=== PATIENT | female | born 1930 | race Caucasian/White ===

== ENCOUNTER 2017-08-19 08:23 | Inpatient (IN) | payer MEDICARE, OTHER ==
[2017-08-19] MEDS ORDERED: IPRATROPIUM-ALBUTEROL 3 ML NEB INHALATION STA (08:43)
[2017-08-19] MEDS ORDERED: FUROSEMIDE 10 MG/ML 4 ML VIAL IV STA (08:43)
--- NOTE | 2017-08-19 08:46 | ED ---
General Adult HPI - General Chief complaint: Shortness of Breath Stated complaint: Sob Time Seen by Provider: 08/19/17 08:40 Source: patient, RN notes reviewed Mode of arrival: wheelchair Limitations: no limitations - History of Present Illness Initial comments: Patient is a pleasant 87-year-old female presenting to the emergency Department with complaints of dyspnea. Symptoms started around 2 in the morning and progressively worsened since that time. Patient does have cough. Patient has had some yellow sputum. No fever. Patient does have a history of similar symptoms previously associated with both COPD and CHF. Patient does admit to having some leg swelling and states this occurs frequently. Dyspnea does increase with lying flat. - Related Data Home Medications Medication Instructions Recorded Confirmed Acetaminophen Tab [Tylenol] 500 - 1,000 mg PO Q4H PRN 01/26/17 01/26/17 Albuterol Nebulized [Ventolin 2.5 mg INHALATION RT-TID 01/26/17 01/26/17 Nebulized] Allopurinol [Zyloprim] 100 mg PO DAILY 01/26/17 01/26/17 Aspirin 81 mg PO DAILY 01/26/17 01/26/17 Budesonide/Formoterol Fumarate 2 puff INHALATION RT-BID 01/26/17 01/26/17 [Symbicort 160-4.5 Mcg Inhaler] Bumetanide [BUMEX] 4 mg PO DAILY 01/26/17 01/26/17 Calcitriol [Rocaltrol] 0.25 mcg PO DAILY 01/26/17 01/26/17 Cinnamon Bark [Cinnamon] 500 mg PO DAILY 01/26/17 01/26/17 Fish Oil/Dha/Epa [Fish Oil 1,200 1 cap PO DAILY 01/26/17 01/26/17 mg Fish Oil] Fluticasone Nasal [place] [Flonase 1 - 2 spray EA NOSTRIL DAILY PRN 01/26/1701/26 Nasal [place]] Isosorbide Mononitrate ER [Imdur] 60 mg PO DAILY 01/26/17 01/26/17 Metolazone [Zaroxolyn] 2.5 mg PO DAILY 01/26/17 01/26/17 Nitroglycerin Sl Tabs [Nitrostat] 0.4 mg SUBLINGUAL Q5M PRN 01/26/17 01/26/17 Omeprazole [PriLOSEC] 20 mg PO DAILY 01/26/17 01/26/17 Ondansetron [Zofran] 4 mg PO Q8HR PRN 01/26/17 01/26/17 Simvastatin [Zocor] 20 mg PO HS 01/26/17 01/26/17 hydrALAZINE HCL [Apresoline] 25 mg PO TID 01/26/17 01/26/17 rOPINIRole HCL [Requip] 1 mg PO BID 01/26/17 01/26/17 Previous Rx's Medication Instructions Recorded Metoprolol Succinate (ER) [Toprol 100 mg PO DAILY #30 tab.er.24h 01/27/17 XL] Allergies Allergy/AdvReac Type Severity Reaction Status Date / Time levofloxacin [From Levaquin] Allergy Unknown Verified 08/19/17 08:38 codeine AdvReac Unknown Verified 08/19/17 08:38 fentanyl AdvReac Unknown Verified 08/19/17 08:38 hydrocodone AdvReac Unknown Verified 08/19/17 08:38 hydromorphone [From Dilaudid] AdvReac Unknown Verified 08/19/17 08:38 morphine AdvReac Unknown Verified 08/19/17 08:38 propoxyphene [From Darvon] AdvReac Unknown Verified 08/19/17 08:38 tramadol AdvReac Unknown Verified 08/19/17 08:38 Review of Systems ROS Statement: Those systems with pertinent positive or pertinent negative responses have been documented in the HPI. ROS Other: All systems not noted in ROS Statement are negative. Constitutional: Denies: fever Eyes: Denies: eye pain ENT: Denies: ear pain Respiratory: Reports: cough, dyspnea Cardiovascular: Denies: chest pain Endocrine: Reports: fatigue Gastrointestinal: Denies: abdominal pain Genitourinary: Denies: dysuria Musculoskeletal: Denies: back pain Skin: Denies: rash Neurological: Denies: headache Past Medical History Past Medical History: Coronary Artery Disease (CAD), Heart Failure, COPD, Diabetes Mellitus, GERD/Reflux, Hyperlipidemia, Hypertension, Renal Disease Additional Past Medical History / Comment(s): RLS, "borderline diabetes", CKD stage IV, anemia, hypocalcemia in past, "leaky heart valve",SSS with pacer, gout R foot, cataract R eye, chronic low back pain. History of Any Multi-Drug Resistant Organisms: None Reported Past Surgical History: Back Surgery, Cholecystectomy, Coronary Bypass/CABG, Heart Catheterization, Hysterectomy, Joint Replacement, Orthopedic Surgery Additional Past Surgical History / Comment(s): 5 vessel Cabg 2002, 02/2009 Pacemaker, R total shoulder, back discectomy, R knee arthroscopy, EGD/ colonoscopy, L cataract removal. Past Anesthesia/Blood Transfusion Reactions: No Reported Reaction Additional Past Anesthesia/Blood Transfusion Reaction / Comment(s): Pt has clausterphobia. Past Psychological History: Depression Smoking Status: Never smoker Past Alcohol Use History: Occasional Past Drug Use History: None Reported - Past Family History Father Family Medical History: COPD, Diabetes Mellitus Additional Family Medical History / Comment(s): Father developed diabetes and heart disease later in life. He lived to be 97yrs old. Mother Family Medical History: COPD, Diabetes Mellitus Additional Family Medical History / Comment(s): Mother had heart disease. She lived to be 70yrs old. General Exam Limitations: no limitations General appearance: alert Head exam: Present: atraumatic Eye exam: Present: normal appearance ENT exam: Present: normal oropharynx Neck exam: Present: normal inspection Respiratory exam: Present: wheezes, rales Cardiovascular Exam: Present: regular rate, normal rhythm GI/Abdominal exam: Present: soft. Absent: tenderness Extremities exam: Present: pedal edema. Absent: calf tenderness Back exam: Present: normal inspection Neurological exam: Present: alert Psychiatric exam: Present: normal affect, normal mood Skin exam: Present: normal color Course Vital Signs 08/19/17 08/19/17 08/19/17 08:33 08:35 09:07 Temperature 98.4 F Pulse Rate 78 60 Respiratory 20 26 H Rate Blood Pressure 170/85 O2 Sat by Pulse 98 Oximetry 08/19/17 08/19/17 08/19/17 09:16 09:37 10:23 Temperature Pulse Rate 60 60 62 Respiratory 18 16 Rate Blood Pressure 138/56 140/88 O2 Sat by Pulse 100 99 Oximetry EKG Findings - EKG Comments: EKG Findings:: Paced rhythm and rate of 60. QRS 194. QT 534. QTC 534. Left axis. Wide-complex QRS. Nonspecific ST-T. Medical Decision Making - Medical Decision Making Patient reevaluated and is somewhat improved. Patient and family are updated on results and plan. Case was crusted detail with Dr. Kaplan, who will admit for Dr. Vargas. - Lab Data Result diagrams: 08/19/17 08:38 08/19/17 08:38 Lab Results 08/19/17 08/19/1718 Range/Units 08:38 08:38 08:38 WBC 5.7 (3.8-10.6) k/uL RBC 4.29 (3.80-5.40) m/uL Hgb 12.6 (11.4-16.0) gm/dL Hct 38.5 (34.0-46.0) % MCV 89.6 (80.0-100.0) fL MCH 29.3 (25.0-35.0) pg MCHC 32.7 (31.0-37.0) g/dL RDW 15.1 (11.5-15.5) % Plt Count 117 L (150-450) k/uL Neutrophils % 64 % Lymphocytes % 22 % Monocytes % 8 % Eosinophils % 2 % Basophils % 1 % Neutrophils # 3.7 (1.3-7.7) k/uL Lymphocytes # 1.3 (1.0-4.8) k/uL Monocytes # 0.4 (0-1.0) k/uL Eosinophils # 0.1 (0-0.7) k/uL Basophils # 0.0 (0-0.2) k/uL PT (9.0-12.0) sec INR (<1.2) APTT (22.0-30.0) sec Sodium 137 (137-145) mmol/L Potassium 3.9 (3.5-5.1) mmol/L Chloride 94 L (98-107) mmol/L Carbon Dioxide 29 (22-30) mmol/L Anion Gap 14 mmol/L BUN 44 H (7-17) mg/dL Creatinine 1.52 H (0.52-1.04) mg/dL Est GFR (CKD-EPI)AfAm 35 (>60 ml/min/1.73 sqM) Est GFR (CKD-EPI)NonAf 31 (>60 ml/min/1.73 sqM) Glucose 170 H (74-99) mg/dL Calcium 9.0 (8.4-10.2) mg/dL Total Bilirubin 0.6 (0.2-1.3) mg/dL AST 58 H (14-36) U/L ALT 25 (9-52) U/L Alkaline Phosphatase 108 (38-126) U/L Total Creatine Kinase 52 (30-135) U/L CK-MB (CK-2) 0.9 (0.0-2.4) ng/mL CK-MB (CK-2) Rel Index 1.7 Troponin I 0.031 (0.000-0.034) ng/mL NT-Pro-B Natriuret Pep pg/mL Total Protein 5.8 L (6.3-8.2) g/dL Albumin 3.8 (3.5-5.0) g/dL 08/19/17 08/19/17 Range/Units 08:38 08:38 WBC (3.8-10.6) k/uL RBC (3.80-5.40) m/uL Hgb (11.4-16.0) gm/dL Hct (34.0-46.0) % MCV (80.0-100.0) fL MCH (25.0-35.0) pg MCHC (31.0-37.0) g/dL RDW (11.5-15.5) % Plt Count (150-450) k/uL Neutrophils % % Lymphocytes % % Monocytes % % Eosinophils % % Basophils % % Neutrophils # (1.3-7.7) k/uL Lymphocytes # (1.0-4.8) k/uL Monocytes # (0-1.0) k/uL Eosinophils # (0-0.7) k/uL Basophils # (0-0.2) k/uL PT 10.5 (9.0-12.0) sec INR 1.1 (<1.2) APTT 22.5 (22.0-30.0) sec Sodium (137-145) mmol/L Potassium (3.5-5.1) mmol/L Chloride (98-107) mmol/L Carbon Dioxide (22-30) mmol/L Anion Gap mmol/L BUN (7-17) mg/dL Creatinine (0.52-1.04) mg/dL Est GFR (CKD-EPI)AfAm (>60 ml/min/1.73 sqM) Est GFR (CKD-EPI)NonAf (>60 ml/min/1.73 sqM) Glucose (74-99) mg/dL Calcium (8.4-10.2) mg/dL Total Bilirubin (0.2-1.3) mg/dL AST (14-36) U/L ALT (9-52) U/L Alkaline Phosphatase (38-126) U/L Total Creatine Kinase (30-135) U/L CK-MB (CK-2) (0.0-2.4) ng/mL CK-MB (CK-2) Rel Index Troponin I (0.000-0.034) ng/mL NT-Pro-B Natriuret Pep 7970 pg/mL Total Protein (6.3-8.2) g/dL Albumin (3.5-5.0) g/dL - Radiology Data Radiology results: image reviewed (Chest x-ray does show cardiomegaly. Increased pulmonary vasculature with cephalization, correlate for pulmonary vascular congestion.) Disposition Clinical Impression: Congestive heart failure Disposition: ADMITTED IP TO THIS HOSP Is patient prescribed a controlled substance at d/c from ED?: No Referrals: Otilio Vargas MD [Primary Care Provider] - 1-2 days Decision Time: 10:45
[2017-08-19 09:12] LABS: Basophils % (A) 1 %; Eosinophils # (A) 0.1 k/uL (0-0.7); Eosinophils % (A) 2 %; HCT 38.5 % (34.0-46.0); HGB 12.6 gm/dL (11.4-16.0); Lymphocytes # (A) 1.3 k/uL (1.0-4.8); Lymphocytes % (A) 22 %; MCH 29.3 pg (25.0-35.0); MCHC 32.7 g/dL (31.0-37.0); MCV 89.6 fL (80.0-100.0); Mean Platelet Volume 7.8; Monocytes # (A) 0.4 k/uL (0-1.0); Monocytes % (A) 8 %; Neutrophils # (A) 3.7 k/uL (1.3-7.7); Neutrophils % (A) 64 %; Platelet Count 117 k/uL (150-450); RBC 4.29 m/uL (3.80-5.40); RDW 15.1 % (11.5-15.5); WBC 5.7 k/uL (3.8-10.6)
--- NOTE | 2017-08-19 09:16 | XR ---
EXAMINATION TYPE: XR chest 2V DATE OF EXAM: 08/19/2017 COMPARISON: None HISTORY: 87-year-old female difficulty breathing, shortness of breath and cough TECHNIQUE: AP and lateral views FINDINGS: Heart is mildly enlarged. Median sternotomy wires and post-CABG clips. The pulmonary vasculature appe ars cephalized. Left anterior chest wall pacemaker generator with right atrial and right ventricular leads. Reverse right shoulder arthroplasty partially visualized. No alex consolidation or pleural ef fusion. IMPRESSION: Mild cardiomegaly. The pulmonary vasculature appears cephalized. Correlate for mild pulmonary vascula r congestion. There is no focal infiltrate or pulmonary edema.
[2017-08-19 09:22] LABS: INR 1.1 (<1.2); Partial Thromboplastin Time 22.5 sec (22.0-30.0); Prothrombin Time 10.5 sec (9.0-12.0)
[2017-08-19 09:24] LABS: Albumin 3.8 g/dL (3.5-5.0); Potassium 3.9 mmol/L (3.5-5.1); Total Bilirubin 0.6 mg/dL (0.2-1.3); Total Protein 5.8 g/dL (6.3-8.2)
[2017-08-19 09:56] LABS: Creatine Kinase MB 0.9 ng/mL (0.0-2.4); Troponin I 0.031 ng/mL (0.000-0.034)
[2017-08-19] MEDS ORDERED: ASPIRIN 325 MG TAB PO STA (10:46)
[2017-08-19] MEDS ORDERED: NITROGLYCERIN SL TABS 0.4 MG TAB SUBLINGUAL PRN (11:03)
[2017-08-19] MEDS ORDERED: ACETAMINOPHEN TAB 500 MG TAB PO PRN (11:03)
[2017-08-19] MEDS ORDERED: FLUTICASONE 50MCG/SPRAY NASAL 16GM EA NOSTRIL PRN (11:03)
--- NOTE | 2017-08-19 12:12 | P.HPIM ---
History of Present Illness This is an 87-year-old female one of Dr. Cade patient's, she has a past medical history of chronic kidney disease stage IV, COPD, oxygen dependent on 2 L, hypertension, restless leg syndrome, history of coronary artery disease, and prior coronary artery bypass 5, pacemaker, diabetes, hypertension and dyslipidemia. Patient reports she's had a cough for about a week and a half now , has been bringing up thick yellow sputum. She's been having progressively worsening shortness of breath, that worsened yesterday. Patient reports she has significant shortness of breath with exertion, and also has been having slight lower extremity swelling, positive for orthopnea as well. Labs were drawn, her creatinine is 1.5, this seems to be her baseline. Chest x-ray reveals mild cardiomegaly, mild pulmonary vascular congestion, no focal infiltrates or pulmonary edema. Upon arrival to the emergency department, patient was slightly tachyphenic. She was given a dose of IV Lasix 40 mg, patient reports improvement in shortness of breath, tachypnea also improved. Rocephin 1 g IV started for bronchitis, she'll be started on DuoNeb's, and supplemental oxygen. Patient recently had echocardiogram in January, it revealed an EF of 35-40%, moderate concentric left ventricular hypertrophy, LV wall motion is hypokinetic, LA severely dilated, mild aortic regurgitation, moderate aortic stenosis, moderate mitral regurgitation, severe tricuspid regurgitation. Will consult cardiology, for her acute on chronic congestive heart failure and aortic stenosis. Review of Systems Constitutional: Reports chills, Reports fever Ears: deny: decreased hearing, ear discharge, tinnitus Ears, nose, mouth and throat: Reports post-nasal drip, Denies dysphagia, Denies epistaxis, Denies headache, Denies sinus pressure Cardiovascular: Reports decreased exercise tolerance, Reports dyspnea on exertion, Reports edema, Reports leg edema, Reports orthopnea, Reports shortness of breath, Denies chest pain, Denies irregular heart beat, Denies palpitations, Denies syncope Respiratory: Reports cough, Reports cough with sputum, Reports dyspnea, Reports home oxygen, Reports wheezing, Denies hemoptysis, Denies pleurisy, Denies respiratory infections, Denies sleep apnea Gastrointestinal: Denies abdominal pain, Denies bloating, Denies change in bowel habits, Denies coffee ground emesis, Denies constipation, Denies diarrhea , Denies heartburn, Denies nausea, Denies vomiting Genitourinary: Denies difficulty voiding, Denies dysuria, Denies flank pain, Denies hematuria, Denies nocturia, Denies urgency, Denies urinary frequency Musculoskeletal: Denies arm numbness/tingling, Denies frequent falls, Denies gait dysfunction, Denies muscle weakness, Denies myalgias, Denies neck pain Integumentary: Denies dryness, Denies lesions, Denies pruritus, Denies rash, Denies wounds Neurological: Denies ataxia, Denies balance difficulties, Denies confusion, Denies headaches, Denies numbness, Denies paralysis, Denies seizures, Denies syncope, Denies tingling Psychiatric: Denies anxiety, Denies confusion, Denies depression, Denies irritability, Denies mood swings Endocrine: Reports fatigue, Denies excessive thirst, Denies flushing, Denies heat intolerance, Denies nocturia, Denies weight change Hematologic/Lymphatic: Denies easy bleeding, Denies lymphadenopathy, Denies lymphedema Past Medical History Past Medical History: Coronary Artery Disease (CAD), Heart Failure, COPD, Diabetes Mellitus, GERD/Reflux, Hyperlipidemia, Hypertension, Renal Disease Additional Past Medical History / Comment(s): RLS, "borderline diabetes", CKD stage IV, anemia, hypocalcemia in past, "leaky heart valve",SSS with pacer, gout R foot, cataract R eye, chronic low back pain. aortic stenosis History of Any Multi-Drug Resistant Organisms: None Reported Past Surgical History: Back Surgery, Cholecystectomy, Coronary Bypass/CABG, Heart Catheterization, Hysterectomy, Joint Replacement, Orthopedic Surgery Additional Past Surgical History / Comment(s): 5 vessel Cabg 2002, 02/2009 Pacemaker, R total shoulder, back discectomy, R knee arthroscopy, EGD/ colonoscopy, L cataract removal. Past Anesthesia/Blood Transfusion Reactions: No Reported Reaction Additional Past Anesthesia/Blood Transfusion Reaction / Comment(s): Pt has clausterphobia. Past Psychological History: Depression Smoking Status: Never smoker Past Alcohol Use History: Occasional Past Drug Use History: None Reported - Past Family History Father Family Medical History: COPD, Diabetes Mellitus Additional Family Medical History / Comment(s): Father developed diabetes and heart disease later in life. He lived to be 97yrs old. Mother Family Medical History: COPD, Diabetes Mellitus Additional Family Medical History / Comment(s): Mother had heart disease. She lived to be 70yrs old. Medications and Allergies Home Medications Medication Instructions Recorded Confirmed Type Acetaminophen Tab [Tylenol] 500 - 1,000 mg PO Q4H PRN 01/26/17 08/19/17 History Albuterol Nebulized [Ventolin 2.5 mg INHALATION RT-TID 01/26/17 08/19/17 History Nebulized] Budesonide/Formoterol Fumarate 2 puff INHALATION RT-BID 01/26/17 08/19/17 History [Symbicort 160-4.5 Mcg Inhaler] Bumetanide [BUMEX] 3 mg PO DAILY 01/26/17 08/19/17 History Calcitriol [Rocaltrol] 0.25 mcg PO DAILY 01/26/17 08/19/17 History Cinnamon Bark [Cinnamon] 500 mg PO DAILY 01/26/17 08/19/17 History Fish Oil/Dha/Epa [Fish Oil 1,200 1 cap PO DAILY 01/26/17 08/19/17 History mg Fish Oil] Fluticasone Nasal [place] [Flonase 1 - 2 spray EA NOSTRIL DAILY PRN 01/26/1708/19 History Nasal [place]] Isosorbide Mononitrate ER [Imdur] 60 mg PO DAILY 01/26/17 08/19/17 History Metolazone [Zaroxolyn] 2.5 mg PO DAILY 01/26/17 08/19/17 History Nitroglycerin Sl Tabs [Nitrostat] 0.4 mg SUBLINGUAL Q5M PRN 01/26/17 08/19/17 History Omeprazole [PriLOSEC] 20 mg PO DAILY 01/26/17 08/19/17 History Simvastatin [Zocor] 20 mg PO HS 01/26/17 08/19/17 History hydrALAZINE HCL [Apresoline] 25 mg PO TID 01/26/17 08/19/17 History rOPINIRole HCL [Requip] 1 mg PO BID 01/26/17 08/19/17 History Metoprolol Succinate (ER) [Toprol 100 mg PO DAILY #30 tab.er.24h 01/27/17 Rx XL] Potassium Chloride Oral Liquid 40 meq PO DAILY 08/19/17 08/19/17 History Allergies Allergy/AdvReac Type Severity Reaction Status Date / Time levofloxacin [From Levaquin] Allergy Unknown Verified 08/19/17 10:48 codeine AdvReac Unknown Verified 08/19/17 10:48 fentanyl AdvReac Unknown Verified 08/19/17 10:48 hydrocodone AdvReac Unknown Verified 08/19/17 10:48 hydromorphone [From Dilaudid] AdvReac Unknown Verified 08/19/17 10:48 morphine AdvReac Unknown Verified 08/19/17 10:48 propoxyphene [From [place]] AdvReac Unknown Verified 08/19/17 10:48 tramadol AdvReac Unknown Verified 08/19/17 10:48 Physical Exam Vitals: Vital Signs Temp Pulse Resp BP Pulse Ox 08/19/17 10:23 62 16 140/88 99 08/19/17 09:37 60 18 138/56 100 08/19/17 09:16 60 08/19/17 09:07 60 08/19/17 08:35 98.4 F 78 26 H 170/85 98 08/19/17 08:33 20 Intake and Output 08/18/17 08/19/17 08/19/17 22:59 06:59 14:59 Other: Weight 73.936 kg - Constitutional General appearance: cooperative, mild distress, obese - EENT Eyes: PERRLA, normal appearance ENT: hearing grossly normal, normal oropharynx - Neck Neck: no lymphadenopathy, normal ROM, no thyromegaly Thyroid: bilateral: normal size, negative: enlarged, firm, nodule - Respiratory Respiratory: bilateral: diminished, rhonchi, negative: dullness, rales, wheezing - Cardiovascular Rhythm: regular Heart sounds: normal: S1, S2 Abnormal Heart Sounds: systolic murmur - Gastrointestinal General gastrointestinal: no decreased bowel sounds, no distended, no hepatomegaly, normal bowel sounds, no organomegaly, soft - Integumentary Integumentary: no cellulitis, no cyanotic, normal turgor, no rash - Neurologic Neurologic: CNII-XII intact - Musculoskeletal Musculoskeletal: generalized weakness, strength equal bilaterally Results CBC & Chem 7: 08/19/17 08:38 08/19/17 08:38 Labs: Abnormal Lab Results - Last 24 Hours (Table) 08/19/17 08/19/17 Range/Units 08:38 08:38 Plt Count 117 L (150-450) k/uL Chloride 94 L (98-107) mmol/L BUN 44 H (7-17) mg/dL Creatinine 1.52 H (0.52-1.04) mg/dL Glucose 170 H (74-99) mg/dL AST 58 H (14-36) U/L Total Protein 5.8 L (6.3-8.2) g/dL Assessment and Plan Plan: 1. Acute respiratory failure secondary to acute on chronic systolic congestive heart failure and aortic stenosis. Will start patient on Lasix 40 mg IV push every 12 hours, continue her on her Imdur 60 mg, hydralazine 25mg 3 times a day , Zaroxolyn 2.5 mg daily and metoprolol 100 mg daily. Cardiology consulted, 2. Symptomatic aortic stenosis. Cardiology on consult, will resume meds as discussed in #1 3. Acute bronchitis. Continue with supplemental oxygen, DuoNeb's, ceftriaxone 1000 mg every 24 hours, continue Symbicort 2 puffs twice a day 4. Chronic kidney disease stage IV. Creatinine from January 2017 was 1.5, this seems to be baseline, will continue to monitor BUN and creatinine 5. Coronary artery disease status post coronary artery bypass graft in 2002, continue metoprolol, aspirin, atorvastatin, and Imdur 6. Ischemic cardiomyopathy with an ejection fraction of 35-40% with pacemaker, continue metolazone, hydralazine, Imdur metoprolol, aspirin, and atorvastatin, cardiology on consult. 7. Restless leg syndrome. Continue Requip 1 mg twice a day as needed 8. COPD on 2 L, oxygen dependent, patient's saturation is 99% will continue with 2 L O2, updraft treatments, and Symbicort. 9. Thrombocytopenia. We'll continue to monitor CBC 10. DVT prophylaxis. levenox 30mg daily 11. GI prophylaxis. Pepcid The above impression and plan of care have been discussed and directed by signing physician. Neelam Gayle nurse practitioner acting as scribe for signing physician.
[2017-08-19] MEDS: ALBUTEROL NEBULIZED 2.5 MG/3 ML INHALATION SCH ×2 (13:45→20:48)
[2017-08-19] MEDS: cefTRIAXone IN SWFI 1,000 MG/10 ML SYRINGE IVP SCH (14:30)
[2017-08-19] MEDS: NITROGLYCERIN OINT 1 INCH/GM PACKET TOPICAL SCH ×3 (14:31→21:37)
[2017-08-19] MEDS: hydrALAZINE HCL 25 MG TAB PO SCH ×2 (15:38→21:34)
[2017-08-19 19:33] LABS: Calcium 8.8 mg/dL (8.4-10.2); Magnesium 1.9 mg/dL (1.6-2.3); Potassium 3.9 mmol/L (3.5-5.1)
[2017-08-19] MEDS: SYMBICORT 160-4.5 MCG INHALER INHALATION SCH (20:48)
[2017-08-19] MEDS: ATORVASTATIN 10 MG TAB PO SCH (21:34)
[2017-08-19] MEDS: FUROSEMIDE 10 MG/ML 4 ML VIAL IV SCH (21:37)
[2017-08-20 05:12] VITALS: RESP 18
[2017-08-20] MEDS: PANTOPRAZOLE 40 MG TABLET PO SCH (06:26)
[2017-08-20] MEDS: NITROGLYCERIN OINT 1 INCH/GM PACKET TOPICAL SCH ×4 (08:16→20:39)
[2017-08-20] MEDS: FAMOTIDINE 20 MG TAB PO SCH (08:18)
[2017-08-20] MEDS: METOPROLOL SUCCINATE (ER) 100 MG TAB.ER.24H PO SCH (08:18)
[2017-08-20] MEDS: hydrALAZINE HCL 25 MG TAB PO SCH ×3 (08:18→20:41)
[2017-08-20] MEDS: ISOSORBIDE MONONITRATE ER 30 MG TAB.ER.24H PO SCH (08:18)
[2017-08-20] MEDS: CALCITRIOL 0.25 MCG CAP PO SCH (08:19)
[2017-08-20] MEDS: FUROSEMIDE 10 MG/ML 4 ML VIAL IV SCH ×2 (08:19→20:41)
[2017-08-20] MEDS: METOLAZONE 2.5 MG TAB PO SCH (08:19)
[2017-08-20] MEDS: ASPIRIN 325 MG TAB PO SCH (08:19)
[2017-08-20] MEDS: ENOXAPARIN 30 MG/0.3 ML SYRINGE SQ SCH (08:19)
[2017-08-20] MEDS: POTASSIUM BICARBONATE/CIT AC 20 MEQ TABLET.EFF PO SCH (08:20)
[2017-08-20] MEDS: ALBUTEROL NEBULIZED 2.5 MG/3 ML INHALATION SCH ×3 (08:27→20:33)
[2017-08-20] MEDS: SYMBICORT 160-4.5 MCG INHALER INHALATION SCH ×2 (08:36→20:31)
[2017-08-20] MEDS ORDERED: NON-FORMULARY DRUG (Fish Oil/Dha/Epa [Fish Oil 1,200 Mg Fish Oil] 1 CAP) PO SCH (09:00)
[2017-08-20] MEDS ORDERED: NON-FORMULARY DRUG (Cinnamon Bark [Cinnamon] 500 MG) PO SCH (09:00)
--- NOTE | 2017-08-20 09:57 | P.PN ---
Subjective Progress Note Date: 08/20/17 This is an 87-year-old female one of Dr. Cade patient's, she has a past medical history of chronic kidney disease stage IV, COPD, oxygen dependent on 2 L, hypertension, restless leg syndrome, history of coronary artery disease, and prior coronary artery bypass 5, pacemaker, diabetes, hypertension and dyslipidemia. Patient reports she's had a cough for about a week and a half now , has been bringing up thick yellow sputum. She's been having progressively worsening shortness of breath, that worsened yesterday. Patient reports she has significant shortness of breath with exertion, and also has been having slight lower extremity swelling, positive for orthopnea as well. Labs were drawn, her creatinine is 1.5, this seems to be her baseline. Chest x-ray reveals mild cardiomegaly, mild pulmonary vascular congestion, no focal infiltrates or pulmonary edema. Upon arrival to the emergency department, patient was slightly tachyphenic. She was given a dose of IV Lasix 40 mg, patient reports improvement in shortness of breath, tachypnea also improved. Rocephin 1 g IV started for bronchitis, she'll be started on DuoNeb's, and supplemental oxygen. Patient recently had echocardiogram in January, it revealed an EF of 35-40%, moderate concentric left ventricular hypertrophy, LV wall motion is hypokinetic, LA severely dilated, mild aortic regurgitation, moderate aortic stenosis, moderate mitral regurgitation, severe tricuspid regurgitation. Will consult cardiology, for her acute on chronic congestive heart failure and aortic stenosis. 08/20: Patient is doing much better today she denies any chest pain she is less short of breath she continues to have some swelling in both lower extremities usability using a walker she has no coughing or hemoptysis she has no fever or chills we will continue to monitor the patient for another 1 or 2 days she will be seen in consultation by cardiology as well. Objective - Vital Signs Vital signs: Vital Signs Temp 96.6 F L 08/20/17 08:00 Pulse 72 08/20/17 08:42 Resp 18 08/20/17 08:00 BP 149/70 08/20/17 08:00 Pulse Ox 95 08/20/17 08:00 Intake & Output 08/19/17 08/20/17 08/20/17 18:59 06:59 18:59 Intake Total 240 Output Total 400 Balance -160 Weight 73.936 kg 73.5 kg Intake: Oral 240 Output: Urine 400 Other: Voiding Method Toilet Toilet # Voids 3 - Exam Constitutional General appearance: cooperative, mild distress, obese - EENT Eyes: PERRLA, normal appearance ENT: hearing grossly normal, normal oropharynx - Neck Neck: no lymphadenopathy, normal ROM, no thyromegaly Thyroid: bilateral: normal size, negative: enlarged, firm, nodule - Respiratory Respiratory: bilateral: diminished, rhonchi, negative: dullness, rales, wheezing - Cardiovascular Rhythm: regular Heart sounds: normal: S1, S2 Abnormal Heart Sounds: systolic murmur - Gastrointestinal General gastrointestinal: no decreased bowel sounds, no distended, no hepatomegaly, normal bowel sounds, no organomegaly, soft - Integumentary Integumentary: no cellulitis, no cyanotic, normal turgor, no rash - Neurologic Neurologic: CNII-XII intact - Musculoskeletal Musculoskeletal: generalized weakness, strength equal bilaterally - Labs CBC & Chem 7: 08/19/17 08:38 08/19/17 18:52 Labs: Abnormal Lab Results - Last 24 Hours (Table) 08/19/17 Range/Units 18:52 Chloride 94 L (98-107) mmol/L Carbon Dioxide 32 H (22-30) mmol/L BUN 44 H (7-17) mg/dL Creatinine 1.70 H (0.52-1.04) mg/dL Glucose 117 H (74-99) mg/dL Assessment and Plan Assessment: 1. Acute respiratory failure secondary to acute on chronic systolic congestive heart failure and aortic stenosis. Will start patient on Lasix 40 mg IV push every 12 hours, continue her on her Imdur 60 mg, hydralazine 25mg 3 times a day , Zaroxolyn 2.5 mg daily and metoprolol 100 mg daily. Cardiology consulted, 2. Symptomatic aortic stenosis. Cardiology on consult, will resume meds as discussed in #1 3. Acute bronchitis. Continue with supplemental oxygen, DuoNeb's, ceftriaxone 1000 mg every 24 hours, continue Symbicort 2 puffs twice a day 4. Chronic kidney disease stage IV. Creatinine from January 2017 was 1.5, this seems to be baseline, will continue to monitor BUN and creatinine 5. Coronary artery disease status post coronary artery bypass graft in 2002, continue metoprolol, aspirin, atorvastatin, and Imdur 6. Ischemic cardiomyopathy with an ejection fraction of 35-40% with pacemaker, continue metolazone, hydralazine, Imdur metoprolol, aspirin, and atorvastatin, cardiology on consult. 7. Restless leg syndrome. Continue Requip 1 mg twice a day as needed 8. COPD on 2 L, oxygen dependent, patient's saturation is 99% will continue with 2 L O2, updraft treatments, and Symbicort. 9. Thrombocytopenia. We'll continue to monitor CBC 10. DVT prophylaxis. levenox 30mg daily 11. GI prophylaxis. Pepcid
--- NOTE | 2017-08-20 11:08 | CONS ---
CONSULTATION CHIEF COMPLAINT: Shortness of breath. Citlalli is an 87-year-old lady with history of coronary artery disease, status post CABG, history of permanent pacemaker, chronic congestive heart failure and COPD, who presented to hospital complaining of sudden onset shortness of breath. She has moderate intensity shortness of breath, came on at rest without clear-cut relieving or exacerbating factors. She also has chronic lower extremity edema that has worsened somewhat of late. Patient is on Bumex at home along with nitrates, hydralazine, beta blockers. She denies chest pain and on this admission she has had a troponin that is within normal limits. Her BNP [place] elevated [place] 7970. EKG shows paced rhythm. PAST MEDICAL HISTORY: Significant for coronary artery disease, status post CABG, hypertension, dyslipidemia, chronic congestive heart failure, sick sinus syndrome. MEDICATIONS: At home include Tylenol, Zocor, Flonase, Ventolin, Bumex, Requip, Apresoline, Toprol- XL, Prilosec, metolazone, Imdur, calcitriol and Symbicort. Multiple drug allergies including CODEINE, FENTANYL, DILAUDID, MORPHINE, TRAMADOL. FAMILY HISTORY: Negative for premature coronary artery disease. SOCIAL HISTORY: Negative for smoking, EtOH abuse, or drug abuse. REVIEW OF SYSTEMS: HEENT is unremarkable. CARDIAC: As described above. RESPIRATORY: Significant for shortness of breath. GI: Negative. GENITOURINARY: Negative. ALLERGY/IMMUNOLOGY: Negative. SKIN: Negative. MUSCULOSKELETAL: Significant for arthritis. PSYCHOSOCIAL: Negative. ENDOCRINE: Negative. DERMATOLOGY: Negative. CONSTITUTIONAL: Negative. ONCOLOGICAL: Negative. Rest of the system review is not relevant. PHYSICAL EXAM: She is comfortable at rest. Vital signs are stable. There is no jugular venous distention. Carotid upstroke is normal. There is no bruit. Chest exam reveals diminished air entry at the bases. Heart exam reveals first and second heart sounds. Systolic murmur at the apex. Abdomen is soft. Exam of extremities reveals 1+ edema. Peripheral pulses are palpable. An echocardiogram on her in the past showed ischemic cardiomyopathy with an ejection fraction of 35%. She has moderate aortic stenosis, severe tricuspid regurgitation and moderate mitral regurgitation and pulmonary hypertension. ASSESSMENT: 1. Acute exacerbation of chronic systolic heart failure. 2. Coronary artery disease, status post coronary artery bypass grafting. 3. Chronic renal insufficiency. 4. Mitral regurgitation. 5. Aortic stenosis. PLAN: Will treat the patient with IV Lasix, beta blockers, nitrates, hydralazine, and adjust therapies as needed based on her response. MMODL / IJN: [id number] /
[2017-08-20] MEDS: cefTRIAXone IN SWFI 1,000 MG/10 ML SYRINGE IVP SCH (12:21)
[2017-08-20 15:38] VITALS: BMI 32.7
[2017-08-20] MEDS: ATORVASTATIN 10 MG TAB PO SCH (20:41)
[2017-08-21 06:19] LABS: Basophils % (A) 1 %; Eosinophils # (A) 0.2 k/uL (0-0.7); Eosinophils % (A) 4 %; HCT 38.5 % (34.0-46.0); HGB 12.9 gm/dL (11.4-16.0); Lymphocytes # (A) 1.7 k/uL (1.0-4.8); Lymphocytes % (A) 29 %; MCH 30.5 pg (25.0-35.0); MCHC 33.6 g/dL (31.0-37.0); MCV 90.8 fL (80.0-100.0); Mean Platelet Volume 7.8; Monocytes # (A) 0.4 k/uL (0-1.0); Monocytes % (A) 8 %; Neutrophils # (A) 3.2 k/uL (1.3-7.7); Neutrophils % (A) 56 %; Platelet Count 124 k/uL (150-450); RBC 4.25 m/uL (3.80-5.40); RDW 15.7 % (11.5-15.5); WBC 5.8 k/uL (3.8-10.6)
[2017-08-21 06:25] LABS: Albumin 3.8 g/dL (3.5-5.0); Calcium 9.4 mg/dL (8.4-10.2); Magnesium 1.9 mg/dL (1.6-2.3); Potassium 4.3 mmol/L (3.5-5.1); Total Bilirubin 0.5 mg/dL (0.2-1.3); Total Protein 5.9 g/dL (6.3-8.2)
[2017-08-21] MEDS: PANTOPRAZOLE 40 MG TABLET PO SCH (06:42)
[2017-08-21] MEDS: NITROGLYCERIN OINT 1 INCH/GM PACKET TOPICAL SCH ×2 (08:07→12:36)
[2017-08-21] MEDS: ISOSORBIDE MONONITRATE ER 30 MG TAB.ER.24H PO SCH (08:08)
[2017-08-21] MEDS: hydrALAZINE HCL 25 MG TAB PO SCH ×2 (08:09→15:24)
[2017-08-21] MEDS: METOPROLOL SUCCINATE (ER) 100 MG TAB.ER.24H PO SCH (08:09)
[2017-08-21] MEDS: CALCITRIOL 0.25 MCG CAP PO SCH (08:09)
[2017-08-21] MEDS: FAMOTIDINE 20 MG TAB PO SCH (08:09)
[2017-08-21] MEDS: METOLAZONE 2.5 MG TAB PO SCH (08:09)
[2017-08-21] MEDS: ASPIRIN 325 MG TAB PO SCH (08:09)
[2017-08-21] MEDS: FUROSEMIDE 10 MG/ML 4 ML VIAL IV SCH (08:09)
[2017-08-21] MEDS: ENOXAPARIN 30 MG/0.3 ML SYRINGE SQ SCH (08:09)
[2017-08-21] MEDS: SYMBICORT 160-4.5 MCG INHALER INHALATION SCH (08:36)
[2017-08-21] MEDS: ALBUTEROL NEBULIZED 2.5 MG/3 ML INHALATION SCH ×2 (08:36→13:06)
[2017-08-21] MEDS: POTASSIUM BICARBONATE/CIT AC 20 MEQ TABLET.EFF PO SCH (11:02)
[2017-08-21] MEDS: cefTRIAXone IN SWFI 1,000 MG/10 ML SYRINGE IVP SCH (11:02)
[2017-08-21 11:38] VITALS: BP 125/60; TEMP 96
--- NOTE | 2017-08-21 11:51 | P.DS ---
Providers Date of admission: 08/20/17 08:23 Attending physician: Jack Kaplan Consults: 08/19/17 10:46 Consult Physician Routine Consulting Provider: Lorenzo Arevalo Consult Reason/Comments: chf Do you want consulting provider notified?: Yes Primary care physician: [facility] Course: This is an 87-year-old female one of Dr. Cade patient's, she has a past medical history of chronic kidney disease stage IV, COPD, oxygen dependent on 2 L, hypertension, restless leg syndrome, history of coronary artery disease, and prior coronary artery bypass 5, pacemaker, diabetes, hypertension and dyslipidemia. Patient reports she's had a cough for about a week and a half now , has been bringing up thick yellow sputum. She's been having progressively worsening shortness of breath, that worsened yesterday. Patient reports she has significant shortness of breath with exertion, and also has been having slight lower extremity swelling, positive for orthopnea as well. Labs were drawn, her creatinine is 1.5, this seems to be her baseline. Chest x-ray reveals mild cardiomegaly, mild pulmonary vascular congestion, no focal infiltrates or pulmonary edema. Upon arrival to the emergency department, patient was slightly tachyphenic. She was given a dose of IV Lasix 40 mg, patient reports improvement in shortness of breath, tachypnea also improved. Rocephin 1 g IV started for bronchitis, she'll be started on DuoNeb's, and supplemental oxygen. Patient recently had echocardiogram in January, it revealed an EF of 35-40%, moderate concentric left ventricular hypertrophy, LV wall motion is hypokinetic, LA severely dilated, mild aortic regurgitation, moderate aortic stenosis, moderate mitral regurgitation, severe tricuspid regurgitation. Will consult cardiology, for her acute on chronic congestive heart failure and aortic stenosis. 08/20: Patient is doing much better today she denies any chest pain she is less short of breath she continues to have some swelling in both lower extremities usability using a walker she has no coughing or hemoptysis she has no fever or chills we will continue to monitor the patient for another 1 or 2 days she will be seen in consultation by cardiology as well. 08/21: Patient states she much better today, denies any worsening shortness of breath, cough, chest pain. Patient was consulted by cardiology recommends continuation with beta blockers, nitrates, and hydralazine. She'll continue on current medications, follow-up with cardiology. Discharge diagnoses 1. Acute respiratory failure secondary to acute on chronic systolic congestive heart failure and aortic stenosis. 2. Symptomatic aortic stenosis. 3. Acute bronchitis. 4. Chronic kidney disease stage IV. 5. Coronary artery disease status post coronary artery bypass graft in 2002 6. Ischemic cardiomyopathy with an ejection fraction of 35-40% with pacemaker 7. Restless leg syndrome. 8. COPD on 2 L, oxygen dependent 9. Thrombocytopenia. The above impression and plan of care have been discussed and directed by signing physician. Neelam Gayle nurse practitioner acting as scribe for signing physician. Patient Condition at Discharge: Good Plan - Discharge Summary Discharge Rx Participant: No New Discharge Prescriptions: New Cefuroxime [Ceftin] 250 mg PO BID #14 tablet Continue hydrALAZINE HCL [Apresoline] 25 mg PO TID Metolazone [Zaroxolyn] 2.5 mg PO DAILY Isosorbide Mononitrate ER [Imdur] 60 mg PO DAILY Fluticasone Nasal [place] [Flonase Nasal [place]] 1 - 2 spray EA NOSTRIL DAILY PRN PRN Reason: Allergy Symptoms Fish Oil/Dha/Epa [Fish Oil 1,200 mg Fish Oil] 1 cap PO DAILY Cinnamon Bark [Cinnamon] 500 mg PO DAILY Calcitriol [Rocaltrol] 0.25 mcg PO DAILY Bumetanide [BUMEX] 3 mg PO DAILY Budesonide/Formoterol Fumarate [Symbicort 160-4.5 Mcg Inhaler] 2 puff INHALATION RT-BID Albuterol Nebulized [Ventolin Nebulized] 2.5 mg INHALATION RT-TID Acetaminophen Tab [Tylenol] 500 - 1,000 mg PO Q4H PRN PRN Reason: Pain Omeprazole [PriLOSEC] 20 mg PO DAILY Nitroglycerin Sl Tabs [Nitrostat] 0.4 mg SUBLINGUAL Q5M PRN PRN Reason: Chest Pain rOPINIRole HCL [Requip] 1 mg PO BID Simvastatin [Zocor] 20 mg PO HS Metoprolol Succinate (ER) [Toprol XL] 100 mg PO DAILY #30 tab.er.24h Potassium Chloride Oral Liquid 40 meq PO DAILY Discharge Medication List Acetaminophen Tab [Tylenol] 500 - 1,000 mg PO Q4H PRN 01/26/17 [History] Albuterol Nebulized [Ventolin Nebulized] 2.5 mg INHALATION RT-TID 01/26/17 [ History] Budesonide/Formoterol Fumarate [Symbicort 160-4.5 Mcg Inhaler] 2 puff INHALATION RT-BID 01/26/17 [History] Bumetanide [BUMEX] 3 mg PO DAILY 01/26/17 [History] Calcitriol [Rocaltrol] 0.25 mcg PO DAILY 01/26/17 [History] Cinnamon Bark [Cinnamon] 500 mg PO DAILY 01/26/17 [History] Fish Oil/Dha/Epa [Fish Oil 1,200 mg Fish Oil] 1 cap PO DAILY 01/26/17 [History] Fluticasone Nasal [place] [Flonase Nasal [place]] 1 - 2 spray EA NOSTRIL DAILY PRN 01/26/17 [History] Isosorbide Mononitrate ER [Imdur] 60 mg PO DAILY 01/26/17 [History] Metolazone [Zaroxolyn] 2.5 mg PO DAILY 01/26/17 [History] Nitroglycerin Sl Tabs [Nitrostat] 0.4 mg SUBLINGUAL Q5M PRN 01/26/17 [History] Omeprazole [PriLOSEC] 20 mg PO DAILY 01/26/17 [History] Simvastatin [Zocor] 20 mg PO HS 01/26/17 [History] hydrALAZINE HCL [Apresoline] 25 mg PO TID 01/26/17 [History] rOPINIRole HCL [Requip] 1 mg PO BID 01/26/17 [History] Metoprolol Succinate (ER) [Toprol XL] 100 mg PO DAILY #30 tab.er.24h 01/27/17 [ Rx] Potassium Chloride Oral Liquid 40 meq PO DAILY 08/19/17 [History] Cefuroxime [Ceftin] 250 mg PO BID #14 tablet 08/21/17 [Rx] Follow up Appointment(s)/Referral(s): Demetrius Dueñas MD [STAFF PHYSICIAN] - 08/27/17 3:00 pm (Device clinic and to see Dr. Dueñas.) Otilio Vargas MD [Primary Care Provider] - 1-2 days Patient Instructions/Handouts: Heart Failure (DC), Chronic Kidney Disease (DC) , DASH Eating Plan (DC) Discharge Disposition: HOME SELF-CARE
[2017-08-21 13:11] VITALS: PULSE 68
--- NOTE | 2017-08-21 14:06 | P.PN ---
Subjective Progress Note Date: 08/21/17 This is an 87-year-old female with history of coronary artery disease and prior bypass surgery, history of prior pacemaker implantation, chronic congestive heart failure, COPD, who presented to the hospital with sudden onset of shortness of breath. Patient was initiated on IV Lasix, beta blockers, nitrates, hydralazine, she diuresed well through the night last night. She was seen and examined this morning, overall feeling significantly better. Her weight is down significantly today. Blood pressure 124/60 with a heart rate in the 60s, 96% on 2 L of oxygen. White blood cell count 5.8, hemoglobin 12.9, platelet count 124. Sodium 137, potassium 4.3, BUN 57, creatinine 1.8. Magnesium level I.7. IV Lasix has been discontinued today, patient has been put back on Bumex. Objective - Vital Signs Vital signs: Vital Signs Temp 96.0 F L 08/21/17 11:38 Pulse 68 08/21/17 13:23 Resp 18 08/21/17 11:38 BP 125/60 08/21/17 11:38 Pulse Ox 96 08/21/17 11:38 Intake & Output 08/20/17 08/21/17 08/21/17 18:59 06:59 18:59 Intake Total 600 Balance 600 Weight 73.5 kg 64 kg Intake: Oral 600 Other: Voiding Method Toilet # Voids 2 2 2 - Exam PHYSICAL EXAMINATION: GENERAL: 87-year-old female in no apparent distress at the time of my examination HEENT: Head is atraumatic, normocephalic. Pupils equal, round. Sclera anicteric. Conjunctiva are clear. Mucous membranes of the mouth are moist. Neck is supple. There is no elevated jugular venous pressure.] bruit is heard. HEART EXAMINATION: Heart S1 S2 systolic murmur is heard. CHEST EXAMINATION: Lungs are clear with mild diminished air entry to the bases. No chest wall tenderness is noted on palpation or with deep breathing. ABDOMEN: Soft, nontender. Bowel sounds are heard. No organomegaly noted. EXTREMITIES: 2+ peripheral pulses with no evidence of peripheral edema and no calf tenderness noted. NEUROLOGIC patient is awake, alert and oriented -3. . - Labs CBC & Chem 7: 08/21/17 05:40 08/21/17 05:40 Labs: Abnormal Lab Results - Last 24 Hours (Table) 08/21/17 08/21/17 Range/Units 05:40 05:40 RDW 15.7 H (11.5-15.5) % Plt Count 124 L (150-450) k/uL Chloride 92 L (98-107) mmol/L Carbon Dioxide 33 H (22-30) mmol/L BUN 57 H (7-17) mg/dL Creatinine 1.80 H (0.52-1.04) mg/dL AST 74 H (14-36) U/L Total Protein 5.9 L (6.3-8.2) g/dL Assessment and Plan Plan: Assessment and plan #1 systolic congestive heart failure acute on chronic #2 coronary artery disease with prior bypass surgery #3 chronic renal insufficiency #4 aortic stenosis and mitral regurgitation #4 COPD #5 history of prior pacemaker Plan Patient's IV Lasix has been discontinued, patient is currently on by mouth Bumex. From our perspective she may be able to be discharged home once cleared by primary, we'll make her a follow-up appointment in the office post discharge. DNP note has been reviewed, I agree with a documented findings and plan of care. Patient was seen and examined.
[2017-08-22] MEDS ORDERED: ASPIRIN 81 MG PO SCH (09:00)
[2017-08-22] MEDS ORDERED: BUMETANIDE 1 MG TAB PO SCH (09:00)
== END 2017-08-21 16:10 | disposition home or self-care (01) | DRG 291 ==
LOC: EC 08:23 → 3OBS 10:47 → 6SEL 15:05 → OBSVTOIN 08-20 08:23 → 6SEL 08-20 21:14
PROVIDERS: ADMIT Internal Medicine; ATTEND Internal Medicine
DX: I13.0 Hypertensive heart and chronic kidney disease with heart failure and stage 1 through stage 4 chronic kidney disease, or unspecified chronic kidney disease (principal); I50.23 Acute on chronic systolic (congestive) heart failure; J96.00 Acute respiratory failure, unspecified whether with hypoxia or hypercapnia; J44.0 Chronic obstructive pulmonary disease with (acute) lower respiratory infection; N18.4 Chronic kidney disease, stage 4 (severe); D69.6 Thrombocytopenia, unspecified; E11.22 Type 2 diabetes mellitus with diabetic chronic kidney disease; E78.5 Hyperlipidemia, unspecified; F32.9 Major depressive disorder, single episode, unspecified; G25.81 Restless legs syndrome; I08.3 Combined rheumatic disorders of mitral, aortic and tricuspid valves; I25.10 Atherosclerotic heart disease of native coronary artery without angina pectoris; I25.5 Ischemic cardiomyopathy; J20.9 Acute bronchitis, unspecified; K21.9 Gastro-esophageal reflux disease without esophagitis; Z79.51 Long term (current) use of inhaled steroids; Z79.82 Long term (current) use of aspirin; Z79.899 Other long term (current) drug therapy; Z82.49 Family history of ischemic heart disease and other diseases of the circulatory system; Z82.5 Family history of asthma and other chronic lower respiratory diseases; Z83.3 Family history of diabetes mellitus; Z90.710 Acquired absence of both cervix and uterus; Z95.0 Presence of cardiac pacemaker; Z95.1 Presence of aortocoronary bypass graft; Z98.42 Cataract extraction status, left eye; Z99.81 Dependence on supplemental oxygen; H26.9 Unspecified cataract; Z96.611 Presence of right artificial shoulder joint; M10.9 Gout, unspecified; Z88.5 Allergy status to narcotic agent; F40.240 Claustrophobia
CPT/HCPCS: 36415; 71046; 80048; 80053; 82550; 82553; 83735; 83880; 84484; 85025; 85610; 85730; 93005; 94640; 94760; 96374; 99285

== ENCOUNTER 2017-09-24 13:29 | Emergency (ER) | payer MEDICARE, OTHER ==
[2017-09-24 14:39] VITALS: RESP 18
--- NOTE | 2017-09-24 16:11 | ED ---
URI HPI - General Chief Complaint: Upper Respiratory Infection Stated Complaint: blood in flem Time Seen by Provider: 09/24/17 15:55 Source: patient Mode of arrival: wheelchair Limitations: no limitations - History of Present Illness Initial Comments: 87-year-old female patient presents to the emergency department today for evaluation of cough, shortness of breath, and padmini sputum production. Patient states that she has a chronic cough with history of asthma and COPD. Patient states that over the last 2-3 days she has been coughing up green blood tinged sputum. Patient denies any fevers or chills with this. Denies any significant weakness or dizziness. She denies any chest pain with this. Patient denies any recent rash, abdominal pain, nausea, vomiting, diarrhea, constipation, back pain , numbness, tingling, hematuria, dysuria, urinary urgency, urinary frequency, headache, visual changes, or any other complaints. - Related Data Home Medications Medication Instructions Recorded Confirmed Acetaminophen Tab [Tylenol] 500 - 1,000 mg PO Q4H PRN 01/26/17 09/24/17 Albuterol Nebulized [Ventolin 2.5 mg INHALATION RT-TID 01/26/17 09/24/17 Nebulized] Budesonide/Formoterol Fumarate 2 puff INHALATION RT-BID 01/26/17 09/24/17 [Symbicort 160-4.5 Mcg Inhaler] Bumetanide [BUMEX] 3 mg PO DAILY 01/26/17 09/24/17 Calcitriol [Rocaltrol] 0.25 mcg PO DAILY 01/26/17 09/24/17 Cinnamon Bark [Cinnamon] 500 mg PO DAILY 01/26/17 09/24/17 Fish Oil/Dha/Epa [Fish Oil 1,200 1 cap PO DAILY 01/26/17 09/24/17 mg Fish Oil] Fluticasone Nasal [place] [Flonase 1 - 2 spray EA NOSTRIL DAILY PRN 01/26/1709/24 Nasal [place]] Isosorbide Mononitrate ER [Imdur] 60 mg PO DAILY 01/26/17 09/24/17 Metolazone [Zaroxolyn] 2.5 mg PO DAILY 01/26/17 09/24/17 Nitroglycerin Sl Tabs [Nitrostat] 0.4 mg SUBLINGUAL Q5M PRN 01/26/17 09/24/17 Omeprazole [PriLOSEC] 20 mg PO DAILY 01/26/17 09/24/17 Simvastatin [Zocor] 20 mg PO HS 01/26/17 09/24/17 hydrALAZINE HCL [Apresoline] 25 mg PO TID 01/26/17 09/24/17 rOPINIRole HCL [Requip] 1 mg PO BID 01/26/17 09/24/17 Potassium Chloride Oral Liquid 40 meq PO DAILY 08/19/17 09/24/17 Previous Rx's Medication Instructions Recorded Metoprolol Succinate (ER) [Toprol 100 mg PO DAILY #30 tab.er.24h 01/27/17 XL] Azithromycin [Zithromax Z-pack] 0 mg PO DIRECTED #6 tab 09/24/17 Allergies Allergy/AdvReac Type Severity Reaction Status Date / Time levofloxacin [From Levaquin] Allergy Nausea & Verified 09/24/17 16:35 Vomiting codeine AdvReac Nausea & Verified 09/24/17 16:35 Vomiting fentanyl AdvReac Nausea & Verified 09/24/17 16:35 Vomiting hydrocodone AdvReac Nausea & Verified 09/24/17 16:35 Vomiting hydromorphone [From Dilaudid] AdvReac Hallucinati Verified 09/24/17 16:35 ons morphine AdvReac Nausea & Verified 09/24/17 16:35 Vomiting pentazocine [From Talwin] AdvReac Nausea & Verified 09/24/17 16:35 Vomiting propoxyphene [From Darvon] AdvReac Nausea & Verified 09/24/17 16:35 Vomiting tramadol AdvReac Nausea & Verified 09/24/17 16:35 Vomiting Review of Systems ROS Statement: Those systems with pertinent positive or pertinent negative responses have been documented in the HPI. ROS Other: All systems not noted in ROS Statement are negative. Past Medical History Past Medical History: Coronary Artery Disease (CAD), Heart Failure, COPD, Diabetes Mellitus, GERD/Reflux, Hyperlipidemia, Hypertension, Renal Disease Additional Past Medical History / Comment(s): RLS, "borderline diabetes", CKD stage IV, anemia, hypocalcemia in past, "leaky heart valve",SSS with pacer, gout R foot, cataract R eye, chronic low back pain. aortic stenosis History of Any Multi-Drug Resistant Organisms: None Reported Past Surgical History: Back Surgery, Cholecystectomy, Coronary Bypass/CABG, Heart Catheterization, Hysterectomy, Joint Replacement, Orthopedic Surgery Additional Past Surgical History / Comment(s): 5 vessel Cabg 2002, 02/2009 Pacemaker, R total shoulder, back discectomy, R knee arthroscopy, EGD/ colonoscopy, L cataract removal. Past Anesthesia/Blood Transfusion Reactions: No Reported Reaction Additional Past Anesthesia/Blood Transfusion Reaction / Comment(s): Pt has clausterphobia. Type of Cardiac Device: Permanent Pacemaker Device Placement Date:: gen change 02/11 Past Psychological History: Depression Smoking Status: Never smoker Past Alcohol Use History: Occasional Past Drug Use History: None Reported - Past Family History Father Family Medical History: COPD, Diabetes Mellitus Additional Family Medical History / Comment(s): Father developed diabetes and heart disease later in life. He lived to be 97yrs old. Mother Family Medical History: COPD, Diabetes Mellitus Additional Family Medical History / Comment(s): Mother had heart disease. She lived to be 70yrs old. General Exam Limitations: no limitations General appearance: alert, in no apparent distress, other (This is a well- developed, well-nourished elderly female patient in no acute distress. Vital signs upon presentation are temperature 97.7F, pulse 60, respirations 18, blood pressure 149/70, pulse ox 94% on room air.) Eye exam: Present: normal appearance, PERRL, EOMI. Absent: scleral icterus, conjunctival injection, periorbital swelling ENT exam: Present: normal exam, normal oropharynx, mucous membranes moist Respiratory exam: Present: wheezes (Diffuse expiratory wheezing). Absent: normal lung sounds bilaterally, respiratory distress, rales, rhonchi, stridor Cardiovascular Exam: Present: regular rate, normal rhythm, normal heart sounds. Absent: systolic murmur, diastolic murmur, rubs, gallop, clicks GI/Abdominal exam: Present: soft, normal bowel sounds. Absent: distended, tenderness, guarding, rebound, rigid Neurological exam: Present: alert, oriented X3, CN II-XII intact Psychiatric exam: Present: normal affect, normal mood Skin exam: Present: warm, dry, intact, normal color. Absent: rash Course Vital Signs 09/24/17 09/24/17 09/24/17 14:37 16:21 16:27 Temperature 97.7 F Pulse Rate 60 84 85 Respiratory 18 Rate Blood Pressure 149/70 O2 Sat by Pulse 94 L Oximetry Medical Decision Making - Medical Decision Making 87-year-old female patient presented to the emergency department today for evaluation of hemoptysis. Physical examination reveals diffuse expiratory wheezing posteriorly. Patient states this is normal as she does have a history of asthma. Patient denies any increased to the frequency of her cough, shortness of breath, or chest pain. Chest x-ray showed no acute cardiopulmonary process. Labs reviewed and are unremarkable. Patient will be treated for acute bronchitis with a Z-Qasim. She is instructed to follow-up with her primary care physician for recheck in 1-2 days. Return parameters discussed in detail. She verbalizes understanding and agree with this plan. - Lab Data Result diagrams: 09/24/17 16:40 09/24/17 16:40 Lab Results 09/24/17 09/24/17 Range/Units 16:40 16:40 WBC 9.2 (3.8-10.6) k/uL RBC 4.96 (3.80-5.40) m/uL Hgb 14.1 (11.4-16.0) gm/dL Hct 43.8 (34.0-46.0) % MCV 88.3 (80.0-100.0) fL MCH 28.4 (25.0-35.0) pg MCHC 32.1 (31.0-37.0) g/dL RDW 15.1 (11.5-15.5) % Plt Count 134 L (150-450) k/uL Neutrophils % 66 % Lymphocytes % 22 % Monocytes % 6 % Eosinophils % 4 % Basophils % 1 % Neutrophils # 6.0 (1.3-7.7) k/uL Lymphocytes # 2.1 (1.0-4.8) k/uL Monocytes # 0.6 (0-1.0) k/uL Eosinophils # 0.3 (0-0.7) k/uL Basophils # 0.1 (0-0.2) k/uL Sodium 137 (137-145) mmol/L Potassium 3.6 (3.5-5.1) mmol/L Chloride 92 L (98-107) mmol/L Carbon Dioxide 34 H (22-30) mmol/L Anion Gap 11 mmol/L BUN 45 H (7-17) mg/dL Creatinine 1.45 H (0.52-1.04) mg/dL Est GFR (CKD-EPI)AfAm 37 (>60 ml/min/1.73 sqM) Est GFR (CKD-EPI)NonAf 32 (>60 ml/min/1.73 sqM) Glucose 101 H (74-99) mg/dL Calcium 9.7 (8.4-10.2) mg/dL Total Bilirubin 0.9 (0.2-1.3) mg/dL AST 68 H (14-36) U/L ALT 26 (9-52) U/L Alkaline Phosphatase 94 (38-126) U/L Total Protein 6.9 (6.3-8.2) g/dL Albumin 4.3 (3.5-5.0) g/dL - Radiology Data Radiology results: report reviewed, image reviewed Two-view x-ray of the chest is obtained. Report was reviewed in its entirety. Impression by Dr. Jose R Reyes shows no acute process. Disposition Clinical Impression: Acute bronchitis, Hemoptysis Disposition: HOME SELF-CARE Condition: Good Instructions: Acute Bronchitis (ED) Additional Instructions: Complete antibiotic prescription in full. Follow-up with your primary care physician for recheck in 1-2 days. Return here immediately for any new, worsening, or concerning symptoms. Prescriptions: Azithromycin [Zithromax Z-pack] 0 mg PO DIRECTED #6 tab Is patient prescribed a controlled substance at d/c from ED?: No Referrals: Otilio Vargas MD [Primary Care Provider] - 1-2 days Time of Disposition: 17:31
[2017-09-24] MEDS ORDERED: IPRATROPIUM-ALBUTEROL 3 ML NEB INHALATION STA (16:12)
[2017-09-24] MEDS ORDERED: methylPREDNISolone SOD SUCCI 125 MG/2 ML VIAL IV STA (16:12)
[2017-09-24 17:04] LABS: Basophils # (A) 0.1 k/uL (0-0.2); Basophils % (A) 1 %; Eosinophils # (A) 0.3 k/uL (0-0.7); Eosinophils % (A) 4 %; HCT 43.8 % (34.0-46.0); HGB 14.1 gm/dL (11.4-16.0); Lymphocytes # (A) 2.1 k/uL (1.0-4.8); Lymphocytes % (A) 22 %; MCH 28.4 pg (25.0-35.0); MCHC 32.1 g/dL (31.0-37.0); MCV 88.3 fL (80.0-100.0); Mean Platelet Volume 8.3; Monocytes # (A) 0.6 k/uL (0-1.0); Monocytes % (A) 6 %; Neutrophils % (A) 66 %; Platelet Count 134 k/uL (150-450); RBC 4.96 m/uL (3.80-5.40); RDW 15.1 % (11.5-15.5); WBC 9.2 k/uL (3.8-10.6)
--- NOTE | 2017-09-24 17:14 | XR ---
EXAMINATION: XR chest 2V DATE AND TIME: 09/24/2017 4:54 PM ORDERING PROVIDER: Lulu Guerrero CLINICAL INDICATION: Cough and congestion, CHF, asthma TECHNIQUE: PA and lateral COMPARISON: 08/19/2017 DESCRIPTION: The lungs are clear. The pleural spaces are negative. Cardiac pacemaker and sternal sutures and mediastinal clips noted. The cardiac silhouette is moderate -plus enlarged, unchanged. The mediastinal and pleural silhouettes are unremarkable. The skeletal structures are intact without acute findings. Right shoulder prosthesis noted, with unre markable appearance. The soft tissues are unremarkable. IMPRESSION: NO ACUTE PROCESS.
[2017-09-24 17:22] LABS: Albumin 4.3 g/dL (3.5-5.0); Calcium 9.7 mg/dL (8.4-10.2); Total Bilirubin 0.9 mg/dL (0.2-1.3); Total Protein 6.9 g/dL (6.3-8.2)
[2017-09-24 17:26] LABS: Potassium 3.6 mmol/L (3.5-5.1)
[2017-09-24 17:56] VITALS: BP 170/74; PULSE 60; TEMP 97
== END 2017-09-24 17:56 | disposition home or self-care (01) ==
LOC: EC 13:29
DX: J20.9 Acute bronchitis, unspecified (principal); R04.2 Hemoptysis; J44.0 Chronic obstructive pulmonary disease with (acute) lower respiratory infection; I25.10 Atherosclerotic heart disease of native coronary artery without angina pectoris; I13.0 Hypertensive heart and chronic kidney disease with heart failure and stage 1 through stage 4 chronic kidney disease, or unspecified chronic kidney disease; I50.9 Heart failure, unspecified; N18.4 Chronic kidney disease, stage 4 (severe); E78.5 Hyperlipidemia, unspecified; K21.9 Gastro-esophageal reflux disease without esophagitis; G25.81 Restless legs syndrome; E11.22 Type 2 diabetes mellitus with diabetic chronic kidney disease; F32.9 Major depressive disorder, single episode, unspecified; Z95.1 Presence of aortocoronary bypass graft; Z95.0 Presence of cardiac pacemaker; Z90.49 Acquired absence of other specified parts of digestive tract; Z98.890 Other specified postprocedural states; Z79.51 Long term (current) use of inhaled steroids; Z79.899 Other long term (current) drug therapy; Z88.1 Allergy status to other antibiotic agents; Z88.5 Allergy status to narcotic agent
CPT/HCPCS: 36415; 94640; 80053; 85025; 87040; 87070; 87205; 71046; 99283; 96374; J2930

== ENCOUNTER 2019-02-14 10:18 | Inpatient (IN) | payer MEDICARE, OTHER ==
[2019-02-14] MEDS ORDERED: IPRATROPIUM-ALBUTEROL 3 ML NEB INHALATION STA (11:37)
[2019-02-14] MEDS ORDERED: FUROSEMIDE 10 MG/ML 4 ML VIAL IV STA (11:37)
--- NOTE | 2019-02-14 11:43 | ED ---
General Adult HPI - General Chief complaint: Shortness of Breath Stated complaint: pt states heart failure, Difficulty breathing Time Seen by Provider: 02/14/19 11:00 Source: patient, family, RN notes reviewed Mode of arrival: ambulatory Limitations: no limitations - History of Present Illness Initial comments: Patient is a pleasant 88-year-old female presenting to the emergency department with complaints of difficulty in breathing. Symptoms have worsened over the past 5 or 6 days. Patient has occasional mild cough with clear sputum. No chest pain. Patient has had leg swelling. Patient has gained 17 pounds over the past couple of weeks. Patient does have history of similar symptoms previously associated with CHF. - Related Data Home Medications Medication Instructions Recorded Confirmed Acetaminophen Tab [Tylenol] 500 - 1,000 mg PO Q4H PRN 01/26/17 09/16/18 Albuterol Nebulized [Ventolin 2.5 mg INHALATION RT-TID 01/26/17 09/16/18 Nebulized] Budesonide/Formoterol Fumarate 2 puff INHALATION RT-BID 01/26/17 09/16/18 [Symbicort 160-4.5 Mcg Inhaler] Bumetanide [BUMEX] 3 mg PO DAILY 01/26/17 09/16/18 Calcitriol [Rocaltrol] 0.25 mcg PO DAILY 01/26/17 09/16/18 Cinnamon Bark [Cinnamon] 500 mg PO DAILY 01/26/17 09/16/18 Fish Oil/Dha/Epa [Fish Oil 1,200 1 cap PO DAILY 01/26/17 09/16/18 mg Fish Oil] Fluticasone Nasal [place] [Flonase 1 - 2 spray EA NOSTRIL DAILY PRN 01/26/1708/27 Nasal [place]] Isosorbide Mononitrate ER [Imdur] 60 mg PO DAILY 01/26/17 09/16/18 Metolazone [Zaroxolyn] 2.5 mg PO DAILY 01/26/17 09/16/18 Nitroglycerin Sl Tabs [Nitrostat] 0.4 mg SUBLINGUAL Q5M PRN 01/26/17 09/16/18 Omeprazole [PriLOSEC] 20 mg PO DAILY 01/26/17 09/16/18 Simvastatin [Zocor] 20 mg PO HS 01/26/17 09/16/18 hydrALAZINE HCL [Apresoline] 25 mg PO TID 01/26/17 09/16/18 rOPINIRole HCL [Requip] 1 mg PO BID 01/26/17 09/16/18 Potassium Chloride Oral Liquid 30 ml PO DAILY 08/19/17 09/16/18 Isosorbide Dinitrate 60 mg PO DAILY 09/16/18 09/16/18 Metoprolol Succinate (ER) [Toprol 50 mg PO BID 09/16/18 09/16/18 XL] Allergies Allergy/AdvReac Type Severity Reaction Status Date / Time levofloxacin [From Levaquin] Allergy Nausea & Verified 09/16/18 11:22 Vomiting codeine AdvReac Nausea & Verified 09/16/18 11:22 Vomiting fentanyl AdvReac Nausea & Verified 09/16/18 11:22 Vomiting hydrocodone AdvReac Nausea & Verified 09/16/18 11:22 Vomiting hydromorphone [From Dilaudid] AdvReac Hallucinati Verified 09/16/18 11:22 ons morphine AdvReac Nausea & Verified 09/16/18 11:22 Vomiting pentazocine [From Talwin] AdvReac Nausea & Verified 09/16/18 11:22 Vomiting propoxyphene [From Darvon] AdvReac Nausea & Verified 09/16/18 11:22 Vomiting tramadol AdvReac Nausea & Verified 09/16/18 11:22 Vomiting Review of Systems ROS Statement: Those systems with pertinent positive or pertinent negative responses have been documented in the HPI. ROS Other: All systems not noted in ROS Statement are negative. Constitutional: Denies: fever Eyes: Denies: eye pain ENT: Denies: ear pain Respiratory: Reports: as per HPI Cardiovascular: Denies: chest pain Endocrine: Reports: fatigue Gastrointestinal: Denies: abdominal pain Genitourinary: Denies: dysuria Musculoskeletal: Denies: back pain Skin: Denies: rash Neurological: Denies: weakness Past Medical History Past Medical History: Coronary Artery Disease (CAD), Heart Failure, COPD, Diabetes Mellitus, GERD/Reflux, Hyperlipidemia, Hypertension, Renal Disease Additional Past Medical History / Comment(s): RLS, "borderline diabetes", CKD stage IV, anemia, hypocalcemia in past, "leaky heart valve",SSS with pacer, gout R foot, cataract R eye, chronic low back pain. aortic stenosis, cataract History of Any Multi-Drug Resistant Organisms: None Reported Past Surgical History: Back Surgery, Cholecystectomy, Coronary Bypass/CABG, Heart Catheterization, Hysterectomy, Joint Replacement, Orthopedic Surgery Additional Past Surgical History / Comment(s): 5 vessel Cabg 2002, 02/2009 Pacemaker, R total shoulder, back discectomy, R knee arthroscopy, EGD/colonoscopy, L cataract removal. Past Anesthesia/Blood Transfusion Reactions: No Reported Reaction Additional Past Anesthesia/Blood Transfusion Reaction / Comment(s): Pt has clausterphobia. Type of Cardiac Device: Permanent Pacemaker Device Placement Date:: gen change 02/11 Past Psychological History: Depression Smoking Status: Never smoker Past Alcohol Use History: None Reported Past Drug Use History: None Reported - Past Family History Father Family Medical History: COPD, Diabetes Mellitus Additional Family Medical History / Comment(s): Father developed diabetes and heart disease later in life. He lived to be 97yrs old. Mother Family Medical History: COPD, Diabetes Mellitus Additional Family Medical History / Comment(s): Mother had heart disease. She lived to be 70yrs old. General Exam Limitations: no limitations General appearance: alert, in no apparent distress Head exam: Present: normocephalic ENT exam: Present: normal exam Neck exam: Present: normal inspection Respiratory exam: Present: decreased breath sounds Cardiovascular Exam: Present: regular rate, normal rhythm GI/Abdominal exam: Present: soft. Absent: tenderness Extremities exam: Present: pedal edema (+3 bilateral). Absent: calf tenderness Neurological exam: Present: alert Psychiatric exam: Present: normal affect, normal mood Skin exam: Present: normal color Course Vital Signs 02/14/19 02/14/19 02/14/19 10:46 10:48 12:14 Temperature 97.4 F L Pulse Rate 60 60 Respiratory 26 H 20 Rate Blood Pressure 147/76 O2 Sat by Pulse 98 Oximetry 02/14/19 02/14/19 12:26 13:23 Temperature 97.8 F Pulse Rate 65 60 Respiratory 24 Rate Blood Pressure 141/57 O2 Sat by Pulse 96 Oximetry EKG Findings - EKG Comments: EKG Findings:: paced rhythm with rate of 60. MN 80. QRS 164. QT 546. QTc 546. Left axis. Wide-complex QRS. Nonspecific ST-T. Medical Decision Making - Medical Decision Making patient reevaluated and updated. Case was discussed with Dr. Mora who will admit covering for Dr. Vargas. - Lab Data Result diagrams: 02/14/19 11:48 02/14/19 11:48 Lab Results 02/14/19 02/14/19 02/14/19 Range/Units 11:48 11:48 11:48 WBC 7.4 (3.8-10.6) k/uL RBC 3.96 (3.80-5.40) m/uL Hgb 12.5 (11.4-16.0) gm/dL Hct 37.9 (34.0-46.0) % MCV 95.8 (80.0-100.0) fL MCH 31.5 (25.0-35.0) pg MCHC 32.9 (31.0-37.0) g/dL RDW 15.8 H (11.5-15.5) % Plt Count 58 L (150-450) k/uL Neutrophils % 74 % Lymphocytes % 14 % Monocytes % 6 % Eosinophils % 3 % Basophils % 1 % Neutrophils # 5.4 (1.3-7.7) k/uL Lymphocytes # 1.1 (1.0-4.8) k/uL Monocytes # 0.5 (0-1.0) k/uL Eosinophils # 0.3 (0-0.7) k/uL Basophils # 0.1 (0-0.2) k/uL Manual Slide Review Performed Poikilocytosis (manual Present Anisocytosis (manual) Present PT 10.9 (9.0-12.0) sec INR 1.0 (<1.2) APTT 24.3 (22.0-30.0) sec Sodium 138 (137-145) mmol/L Potassium 3.9 (3.5-5.1) mmol/L Chloride 98 (98-107) mmol/L Carbon Dioxide 30 (22-30) mmol/L Anion Gap 10 mmol/L BUN 52 H (7-17) mg/dL Creatinine 1.98 H (0.52-1.04) mg/dL Est GFR (CKD-EPI)AfAm 26 (>60 ml/min/1.73 sqM) Est GFR (CKD-EPI)NonAf 22 (>60 ml/min/1.73 sqM) Glucose 101 H (74-99) mg/dL Calcium 9.5 (8.4-10.2) mg/dL Total Bilirubin 1.4 H (0.2-1.3) mg/dL AST 70 H (14-36) U/L ALT 13 (4-34) U/L Alkaline Phosphatase 101 (38-126) U/L Troponin I (0.000-0.034) ng/mL NT-Pro-B Natriuret Pep pg/mL Total Protein 6.3 (6.3-8.2) g/dL Albumin 3.9 (3.5-5.0) g/dL 02/14/19 02/14/19 Range/Units 11:48 11:48 WBC (3.8-10.6) k/uL RBC (3.80-5.40) m/uL Hgb (11.4-16.0) gm/dL Hct (34.0-46.0) % MCV (80.0-100.0) fL MCH (25.0-35.0) pg MCHC (31.0-37.0) g/dL RDW (11.5-15.5) % Plt Count (150-450) k/uL Neutrophils % % Lymphocytes % % Monocytes % % Eosinophils % % Basophils % % Neutrophils # (1.3-7.7) k/uL Lymphocytes # (1.0-4.8) k/uL Monocytes # (0-1.0) k/uL Eosinophils # (0-0.7) k/uL Basophils # (0-0.2) k/uL Manual Slide Review Poikilocytosis (manual Anisocytosis (manual) PT (9.0-12.0) sec INR (<1.2) APTT (22.0-30.0) sec Sodium (137-145) mmol/L Potassium (3.5-5.1) mmol/L Chloride (98-107) mmol/L Carbon Dioxide (22-30) mmol/L Anion Gap mmol/L BUN (7-17) mg/dL Creatinine (0.52-1.04) mg/dL Est GFR (CKD-EPI)AfAm (>60 ml/min/1.73 sqM) Est GFR (CKD-EPI)NonAf (>60 ml/min/1.73 sqM) Glucose (74-99) mg/dL Calcium (8.4-10.2) mg/dL Total Bilirubin (0.2-1.3) mg/dL AST (14-36) U/L ALT (4-34) U/L Alkaline Phosphatase (38-126) U/L Troponin I 0.036 H* (0.000-0.034) ng/mL NT-Pro-B Natriuret Pep 30094 pg/mL Total Protein (6.3-8.2) g/dL Albumin (3.5-5.0) g/dL Disposition Clinical Impression: Congestive heart failure, Thrombocytopenia Disposition: ADMITTED IP TO THIS HOSP Is patient prescribed a controlled substance at d/c from ED?: No Referrals: Otilio Vargas MD [Primary Care Provider] - 1-2 days Decision Time: 13:28
[2019-02-14 12:06] LABS: Basophils # (A) 0.1 k/uL (0-0.2); Basophils % (A) 1 %; Eosinophils # (A) 0.3 k/uL (0-0.7); Eosinophils % (A) 3 %; HCT 37.9 % (34.0-46.0); HGB 12.5 gm/dL (11.4-16.0); Lymphocytes # (A) 1.1 k/uL (1.0-4.8); Lymphocytes % (A) 14 %; MCH 31.5 pg (25.0-35.0); MCHC 32.9 g/dL (31.0-37.0); MCV 95.8 fL (80.0-100.0); Mean Platelet Volume 9.9; Monocytes # (A) 0.5 k/uL (0-1.0); Monocytes % (A) 6 %; Neutrophils # (A) 5.4 k/uL (1.3-7.7); Neutrophils % (A) 74 %; RBC 3.96 m/uL (3.80-5.40); RDW 15.8 % (11.5-15.5); WBC 7.4 k/uL (3.8-10.6)
[2019-02-14 12:11] LABS: Partial Thromboplastin Time 24.3 sec (22.0-30.0); Prothrombin Time 10.9 sec (9.0-12.0)
--- NOTE | 2019-02-14 12:13 | XR ---
EXAMINATION TYPE: XR chest 2V DATE OF EXAM: 02/14/2019 COMPARISON: 09/14/2017 HISTORY: Shortness of breath TECHNIQUE: Frontal and lateral views of the chest are obtained. FINDINGS: Scattered senescent parenchymal changes noted. Hyperinflation compatible with COPD. No evidence for infiltrate. No evidence for atelectasis. Heart size is stable. Mediastinal structures are stable and grossly unremarkable. No evidence for hilar prominence. Degenerative changes dorsal spine. IMPRESSION: 1. No evidence for acute pulmonary disease.
[2019-02-14 12:17] LABS: Albumin 3.9 g/dL (3.5-5.0); Calcium 9.5 mg/dL (8.4-10.2); Potassium 3.9 mmol/L (3.5-5.1); Total Bilirubin 1.4 mg/dL (0.2-1.3); Total Protein 6.3 g/dL (6.3-8.2)
[2019-02-14 12:38] LABS: Anisocytosis (M) Present; Platelet Count 58 k/uL (150-450); Poikilocytosis (M) Present
[2019-02-14] MEDS ORDERED: FUROSEMIDE 10 MG/ML 4 ML VIAL IV SCH (13:30)
[2019-02-14] MEDS ORDERED: ACETAMINOPHEN TAB 500 MG TAB PO PRN (15:38)
--- NOTE | 2019-02-14 16:05 | P.HPIM ---
History of Present Illness H&P Date: 02/14/19 This is an 88-year-old female one of Dr. Cade patient's, she has a past medical history of chronic kidney disease stage IV, COPD, oxygen dependent on 2- 3 Lmostly at night, hypertension, restless leg syndrome, history of coronary artery disease, and prior coronary artery bypass 5 in 2002, pacemaker in 2009,generator change in 01/2017,2 diabetes, hypertension and dyslipidemia. patient comes in today with worsening shortness of breath for the past 1 week. Patient is always short of breath but for the past 1 week she has noticed increased shortness of breath at rest. She had a cataract surgery done on Sunday and was asked to follow with the primary care physician since there was no improvement in symptoms patient decided to come to the ER. She endorses shortness of breath associated with wheezing, nonproductive cough, orthopnea She was given a dose of IV Lasix 40 mg, started on DuoNeb's, and supplemental oxygen. Previous echocardiogram in January 2018, it revealed an EF of 35-40%, moderate concentric left ventricular hypertrophy, LV wall motion is hypokinetic, LA severely dilated, mild aortic regurgitation, moderate aortic stenosis, moderate mitral regurgitation, severe tricuspid regurgitation. Lasix switched to Bumex 1 mg twice a day. Repeat echocardiogram ordered , consult cardiology, for her acute on chronic congestive heart failure and aortic stenosis.we will also start him Solu-Medrol 60 every 6 as patient was noted to be short of breath and wheezy on examination Review of Systems Constitutional: Denies chills, Denies fever, Denies lethargy, Denies malaise, Denies poor appetite, Denies weakness, Denies weight loss Eyes: denies decreased vision, denies diplopia, denies discharge, denies pain Ears: deny: decreased hearing Ears, nose, mouth and throat: Denies dental pain, Denies headache, Denies nasal discharge, Denies nose pain Cardiovascular: Denies chest pain, Denies decreased exercise tolerance, positive for edema, Denies high blood pressure, Denies irregular heart beat, Denies palpitations, Denies paroxysmal nocturnal dyspnea, Denies rapid heart beat, positive forshortness of breath Respiratory: Denies congestion, endorses cough, Denies cough with sputum, endorsesdyspnea,there is 2-3 L home oxygen, positive forwheezing Gastrointestinal: Denies abdominal pain, Denies change in bowel habits, Denies coffee ground emesis, Denies early satiety, Denies excessive gas, Denies heartburn, Denies hematemesis, Denies hematochezia, Denies loss of appetite, Denies nausea, Denies vomiting Genitourinary: Denies dysuria, Denies flank pain, Denies kidney stones, Denies menorrhagia, Denies urgency, Denies urinary frequency Musculoskeletal: Denies gait dysfunction, Denies limitation of motion, Denies morning stiffness, Denies muscle cramps Integumentary: Denies rash, Denies wounds, Denies brittle nails, Denies change in hair/nails, Denies darkening of skin pitting edema bilateral lower extremity Neurological: Denies balance difficulties, Denies change in speech, Denies double vision, Denies gait dysfunction, Denies loss of vision, Denies motor disturbance, Denies numbness, Denies paralysis, Denies paresthesias, Denies seizures Psychiatric: Denies anxiety, Denies depression Endocrine: Denies excessive sweating, Denies excessive thirst, Denies high blood sugars, Denies palpitations Hematologic/Lymphatic: Denies easy bruising, Denies lymphadenopathy Past Medical History Past Medical History: Coronary Artery Disease (CAD), Heart Failure, COPD, Diabetes Mellitus, GERD/Reflux, Hyperlipidemia, Hypertension, Renal Disease Additional Past Medical History / Comment(s): RLS, "borderline diabetes", CKD stage IV, anemia, hypocalcemia in past, "leaky heart valve",SSS with pacer, gout R foot, cataract R eye, chronic low back pain. aortic stenosis, cataract History of Any Multi-Drug Resistant Organisms: None Reported Past Surgical History: Back Surgery, Cholecystectomy, Coronary Bypass/CABG, Heart Catheterization, Hysterectomy, Joint Replacement, Orthopedic Surgery Additional Past Surgical History / Comment(s): 5 vessel Cabg 2002, 02/2009 Pacemaker, R total shoulder, back discectomy, R knee arthroscopy, EGD/colonoscopy, L cataract removal. Past Anesthesia/Blood Transfusion Reactions: No Reported Reaction Additional Past Anesthesia/Blood Transfusion Reaction / Comment(s): Pt has clausterphobia. Type of Cardiac Device: Permanent Pacemaker Device Placement Date:: gen change 02/11 Past Psychological History: Depression Smoking Status: Never smoker Past Alcohol Use History: None Reported Past Drug Use History: None Reported - Past Family History Father Family Medical History: COPD, Diabetes Mellitus Additional Family Medical History / Comment(s): Father developed diabetes and heart disease later in life. He lived to be 97yrs old. Mother Family Medical History: COPD, Diabetes Mellitus Additional Family Medical History / Comment(s): Mother had heart disease. She lived to be 70yrs old. Medications and Allergies Home Medications Medication Instructions Recorded Confirmed Type Acetaminophen Tab [Tylenol] 500 mg PO Q4H PRN 01/26/17 02/14/19 History Albuterol Nebulized [Ventolin 2.5 mg INHALATION RT-TID 01/26/17 02/14/19 History Nebulized] Budesonide/Formoterol Fumarate 2 puff INHALATION RT-BID PRN 01/26/17 02/14/19 History [Symbicort 160-4.5 Mcg Inhaler] Bumetanide [BUMEX] 3 mg PO DAILY 01/26/17 02/14/19 History Calcitriol [Rocaltrol] 0.25 mcg PO DAILY 01/26/17 02/14/19 History Cinnamon Bark [Cinnamon] 500 mg PO DAILY 01/26/17 02/14/19 History Fish Oil/Dha/Epa [Fish Oil 1,200 1 cap PO DAILY 01/26/17 02/14/19 History mg Fish Oil] Fluticasone Nasal [place] [Flonase 2 spray EA NOSTRIL DAILY 01/26/17 02/14/19 History Nasal [place]] Isosorbide Mononitrate ER [Imdur] 60 mg PO DAILY 01/26/17 02/14/19 History Metolazone [Zaroxolyn] 2.5 mg PO DAILY 01/26/17 02/14/19 History Nitroglycerin Sl Tabs [Nitrostat] 0.4 mg SUBLINGUAL Q5M PRN 01/26/17 02/14/19 History Omeprazole [PriLOSEC] 20 mg PO DAILY 01/26/17 02/14/19 History Simvastatin [Zocor] 20 mg PO HS 01/26/17 02/14/19 History hydrALAZINE HCL [Apresoline] 25 mg PO TID 01/26/17 02/14/19 History rOPINIRole HCL [Requip] 1 mg PO BID 01/26/17 02/14/19 History Potassium Chloride Oral Liquid 40 meq PO DAILY 08/19/17 02/14/19 History Metoprolol Succinate (ER) [Toprol 100 mg PO DAILY 09/16/18 02/14/19 History XL] Allopurinol [Zyloprim] 100 mg PO BID 02/14/19 02/14/19 History Allergies Allergy/AdvReac Type Severity Reaction Status Date / Time levofloxacin [From Levaquin] Allergy Nausea & Verified 02/14/19 13:37 Vomiting codeine AdvReac Nausea & Verified 02/14/19 13:37 Vomiting fentanyl AdvReac Nausea & Verified 02/14/19 13:37 Vomiting hydrocodone AdvReac Nausea & Verified 02/14/19 13:37 Vomiting hydromorphone [From Dilaudid] AdvReac Hallucinati Verified 02/14/19 13:37 ons morphine AdvReac Nausea & Verified 02/14/19 13:37 Vomiting pentazocine [From Talwin] AdvReac Nausea & Verified 02/14/19 13:37 Vomiting propoxyphene [From Darvon] AdvReac Nausea & Verified 02/14/19 13:37 Vomiting tramadol AdvReac Nausea & Verified 02/14/19 13:37 Vomiting Physical Exam Vitals: Vital Signs Temp Pulse Resp BP Pulse Ox 02/14/19 13:23 97.8 F 60 24 141/57 96 02/14/19 12:26 65 02/14/19 12:14 60 02/14/19 10:48 20 02/14/19 10:46 97.4 F L 60 26 H 147/76 98 Intake and Output 02/14/19 02/14/19 02/14/19 06:59 14:59 22:59 Output Total 280 Balance -280 Output: Urine 280 Other: Weight 86.183 kg - Constitutional General appearance: cooperative, in severe distress, obese - EENT Eyes: anicteric sclerae, PERRLA, normal appearance ENT: hearing grossly normal - Neck Neck: no lymphadenopathy, normal ROM, no other, no rigidity, no stridor, no thyromegaly - Respiratory Respiratory: patient is wheezy and short of breath even on talking, use of accessory muscles on rest, bilateral: decreased air entry with bilateral wheezing basilar crackles - Cardiovascular Rhythm: regular Heart sounds: normal: S1, S2 Abnormal Heart Sounds: 3/6systolic murmur,3/6diastolic murmur, no rub, S3 gallop - Gastrointestinal General gastrointestinal: normal bowel sounds, softnontender - Integumentary Integumentary:2+ pitting edema bilateral lower extremity worse than the right compared to the left with skin changes concerning for bullas fluid filled - Neurologic Neurologic: CNII-XII intact - Musculoskeletal Musculoskeletal: gait normal, strength equal bilaterally - Psychiatric Psychiatric: A&O x's 3, appropriate affect Results CBC & Chem 7: 02/14/19 11:48 02/14/19 11:48 Labs: Abnormal Lab Results - Last 24 Hours (Table) 02/14/19 02/14/19 02/14/19 Range/Units 11:48 11:48 11:48 RDW 15.8 H (11.5-15.5) % Plt Count 58 L (150-450) k/uL BUN 52 H (7-17) mg/dL Creatinine 1.98 H (0.52-1.04) mg/dL Glucose 101 H (74-99) mg/dL Total Bilirubin 1.4 H (0.2-1.3) mg/dL AST 70 H (14-36) U/L Troponin I 0.036 H* (0.000-0.034) ng/mL Thrombosis Risk Factor Assmnt - DVT/VTE Prophylaxis DVT/VTE Prophylaxis: Mechanical Prophylaxis ordered Assessment and Plan Plan: 1. Acute respiratory failure secondary to acute on chronic systolic congestive heart failure and aortic stenosis.echo from January 2018 suggest EF for 35-40% repeat echo ordered monitor JEAN's D DVT Will start patient onBumex IV every 12 hours, continue her on her Imdur 60 mg, hydralazine 25mg 3 times a day,hold Zaroxolyn 2.5 mg daily and metoprolol 100 mg daily. Cardiology consulted, 2. Symptomatic aortic stenosis. Cardiology on consult, will resume meds as discussed in #1 3. acute COPD exacerbation Continue with supplemental oxygen, DuoNeb's, Solu- Medrol 60 IV every 6, continue Symbicort 2 puffs twice a day 4. Chronic kidney disease stage IV. Creatinine from January 2017 was 1.5, this seems to be baseline, will continue to monitor BUN and creatinine 5. Coronary artery disease status post coronary artery bypass graft in 2002, continue metoprolol, aspirin, atorvastatin, and Imdur 6. Ischemic cardiomyopathy with an ejection fraction of 35-40% with pacemaker, , hydralazine, Imdur metoprolol, aspirin, and atorvastatin, cardiology on consult.Bumex 1 mg IV twice a day I&O's daily weights patient may benefit from interest on discharge if EF low 7. Restless leg syndrome. Continue Requip 1 mg twice a day as needed 8. recent cataract surgery stable 9. Thrombocytopenia. We'll continue to monitor CBC 10. DVT prophylaxis.hold anticoagulation SCDs 11. GI prophylaxis. Pepcid CODE STATUS full code disposition patient needed at least 1-2 inpatient nights for stabilization
[2019-02-14] MEDS: hydrALAZINE HCL 25 MG TAB PO SCH ×2 (16:31→21:33)
--- NOTE | 2019-02-14 18:14 | ECHOF ---
Referral Reason:CHF MEASUREMENTS -------- HEIGHT: 149.9 cm WEIGHT: 86.2 kg BP: 141/57 RVIDd: 4.5 cm (< 3.3) IVSd: 1.5 cm (0.6 - 1.1) LVIDd: 5.5 cm (3.9 - 5.3) LVPWd: 1.6 cm (0.6 - 1.1) IVSs: 2.0 cm LVIDs: 4.1 cm LVPWs: 2.5 cm LA Diam: 4.8 cm (2.7 - 3.8) Ao Diam: 3.5 cm (2.0 - 3.7) AV Cusp: 1.1 cm (1.5 - 2.6) MV EXCURSION: 13.275 mm (> 18.000) MV EF SLOPE: 16 mm/s (70 - 150) EPSS: 1.3 cm AV maxP.06 mmHg AV meanP.59 mmHg AR PHT: 695 ms RAP: 15.00 mmHg RVSP: 38.48 mmHg FINDINGS -------- Atrial fibrillation. Paced rhythm. This was a technically difficult study with suboptimal views. The left ventricle is mildly dilated. There is moderate concentric left ventricular hypertrophy. There is severe global hypokinesis of LV . Overall left ventricular systolic function is moderate-s everely impaired with, an EF between 30 - 35 %. The right ventricle is severely enlarged. The left atrium is markedly dilated. The right atrium was not well visualized. 5 ml of Lumason was utilized for enhancement of images. Interatrial and interventricular septum intact. There is moderate to severe aortic valve sclerosis. There is moderate aortic regurgitation. There is moderate aortic stenosis present. Peak/mean gradient across the Aortic Valve is 46.06mmHg / 27. 59mmHg. Mild mitral annular calcification present. Aldu-yz-duqxpaji mitral regurgitation is present. The peak and mean MV gradients are 14.07mmHg 5.80mmHg as measured by doppler. Gcle-yg-navcszux mitral stenosis. Severe tricuspid regurgitation present. There is mild pulmonary hypertension. The right ventricul ar systolic pressure, as measured by Doppler, is 38.48mmHg. Trace/mild (physiologic) pulmonic regurgitation. The aortic root size is normal. IVC Not well visulized. There is no pericardial effusion. CONCLUSIONS -------- 1. Atrial fibrillation. 2. Paced rhythm. 3. This was a technically difficult study with suboptimal views. 4. The left ventricle is mildly dilated. 5. There is moderate concentric left ventricular hypertrophy. 6. There is severe global hypokinesis of LV . 7. Overall left ventricular systolic function is moderate-severely impaired with, an EF between 30 - 35 %. 8. The right ventricle is severely enlarged. 9. The left atrium is markedly dilated. 10. The right atrium was not well visualized. 11. 5 ml of Lumason was utilized for enhancement of images. 12. There is moderate to severe aortic valve sclerosis. 13. There is moderate aortic regurgitation. 14. There is moderate aortic stenosis present. 15. Peak/mean gradient across the Aortic Valve is 46.06mmHg / 27.59mmHg. 16. Mild mitral annular calcification present. 17. Uygq-cf-roijfnhp mitral regurgitation is present. 18. The peak and mean MV gradients are 14.07mmHg 5.80mmHg as measured by doppler. 19. Prem-bq-dvdtwhrh mitral stenosis. 20. Severe tricuspid regurgitation present. 21. There is mild pulmonary hypertension. 22. Trace/mild (physiologic) pulmonic regurgitation. 23. The aortic root size is normal. 24. IVC Not well visulized. 25. There is no pericardial effusion. BRONZE PLATER: Talia Fernando RDCS
[2019-02-14 20:54] LABS: Glucose,Whole Blood 134 mg/dL (75-99)
[2019-02-14] MEDS: INSULIN ASPART (NovoLOG) 100 UNIT/ML VIAL SQ SCH (21:31)
[2019-02-14] MEDS: NITROGLYCERIN OINT 1 INCH/GM PACKET TOPICAL SCH ×2 (21:32→21:55)
[2019-02-14] MEDS: methylPREDNISolone SOD SUCCI 125 MG/2 ML VIAL IV SCH (21:32)
[2019-02-14] MEDS: ALLOPURINOL 100 MG TAB PO SCH (21:33)
[2019-02-14] MEDS: BUMETANIDE 0.25 MG/ML 4 ML VIAL IVP SCH (21:33)
[2019-02-14] MEDS: ATORVASTATIN 10 MG TAB PO SCH (21:33)
[2019-02-15] MEDS: methylPREDNISolone SOD SUCCI 125 MG/2 ML VIAL IV SCH ×4 (03:14→17:32)
[2019-02-15 03:28] LABS: Basophils % (A) 0 %; Eosinophils % (A) 1 %; HCT 38.8 % (34.0-46.0); HGB 12.4 gm/dL (11.4-16.0); Hypochromasia Slight; Lymphocytes # (A) 0.4 k/uL (1.0-4.8); Lymphocytes % (A) 6 %; MCH 30.6 pg (25.0-35.0); MCHC 31.9 g/dL (31.0-37.0); Mean Platelet Volume 10.1; Monocytes # (A) 0.1 k/uL (0-1.0); Monocytes % (A) 2 %; Neutrophils # (A) 5.7 k/uL (1.3-7.7); Neutrophils % (A) 91 %; RBC 4.04 m/uL (3.80-5.40); RDW 15.7 % (11.5-15.5); WBC 6.3 k/uL (3.8-10.6)
[2019-02-15 03:30] LABS: Platelet Count 57 k/uL (150-450)
[2019-02-15 03:40] LABS: Albumin 3.9 g/dL (3.5-5.0); Calcium 9.5 mg/dL (8.4-10.2); Potassium 3.8 mmol/L (3.5-5.1); Total Bilirubin 1.3 mg/dL (0.2-1.3); Total Protein 6.1 g/dL (6.3-8.2)
[2019-02-15 06:11] LABS: Glucose,Whole Blood 137 mg/dL (75-99)
[2019-02-15] MEDS: PANTOPRAZOLE 40 MG TABLET PO SCH (06:20)
[2019-02-15] MEDS: INSULIN ASPART (NovoLOG) 100 UNIT/ML VIAL SQ SCH ×4 (06:20→21:49)
[2019-02-15] MEDS: POTASSIUM CHLORIDE ER 20 MEQ TAB.ER PO SCH (10:11)
[2019-02-15] MEDS: ISOSORBIDE MONONITRATE ER 60 MG TAB.ER.24H PO SCH (10:11)
[2019-02-15] MEDS: ALLOPURINOL 100 MG TAB PO SCH ×2 (10:11→21:56)
[2019-02-15] MEDS: METOPROLOL SUCCINATE (ER) 100 MG TAB.ER.24H PO SCH (10:11)
[2019-02-15] MEDS: hydrALAZINE HCL 25 MG TAB PO SCH ×3 (10:11→21:56)
[2019-02-15] MEDS: CALCITRIOL 0.25 MCG CAP PO SCH (10:11)
[2019-02-15] MEDS: BUMETANIDE 0.25 MG/ML 4 ML VIAL IVP SCH ×2 (10:44→21:48)
--- NOTE | 2019-02-15 11:04 | P.NPCON ---
History of Present Illness - Reason for Consult Consult date: 02/15/19 acute renal failure - Chief Complaint Worsening of Shortness of breath after cataract surgery - History of Present Illness This is an 88-year-old female seen in consultation because of chronic kidney disease stage IV, with a baseline creatinine of 1.45 dated 09/24/2017, came in with a creatinine of 1.98. She was admitted with worsening shortness of breath since her recent cataract surgery. No changes in medications that she is aware of denies taking any nonsteroidals. No history of fever chills. No nausea vomiting diarrhea abdominal pain No dysuria frequency. Previously her echocardiogram in January 2018 a year ago showed ejection fraction of 35-40% dilated LA, moderate aortic stenosis severe tricuspid regurg and moderate mitral regurg. She is known with chronic diabetes, coronary artery disease, coronary artery bypass graft and pacemaker Past Medical History Past Medical History: Coronary Artery Disease (CAD), Heart Failure, COPD, D iabetes Mellitus, GERD/Reflux, Hyperlipidemia, Hypertension, Renal Disease Additional Past Medical History / Comment(s): RLS, "borderline diabetes", CKD stage IV, anemia, hypocalcemia in past, "leaky heart valve",SSS with pacer, gout R foot, cataract R eye, chronic low back pain. aortic stenosis, cataract History of Any Multi-Drug Resistant Organisms: None Reported Past Surgical History: Back Surgery, Cholecystectomy, Coronary Bypass/CABG, Heart Catheterization, Hysterectomy, Joint Replacement, Orthopedic Surgery Additional Past Surgical History / Comment(s): 5 vessel Cabg 2002, 02/2009 Pacema ker, R total shoulder, back discectomy, R knee arthroscopy, EGD/colonoscopy, L cataract removal. Past Anesthesia/Blood Transfusion Reactions: No Reported Reaction Additional Past Anesthesia/Blood Transfusion Reaction / Comment(s): Pt has clausterphobia. Type of Cardiac Device: Permanent Pacemaker Device Placement Date:: gen change 02/11 Past Psychological History: Depression Smoking Status: Never smoker Past Alcohol Use History: None Reported Past Drug Use History: None Reported - Past Family History Father Family Medical History: COPD, Diabetes Mellitus Additional Family Medical History / Comment(s): Father developed diabetes and heart disease later in life. He lived to be 97yrs old. Mother Family Medical History: COPD, Diabetes Mellitus Additional Family Medical History / Comment(s): Mother had heart disease. She lived to be 70yrs old. Medications and Allergies Home Medications Medication Instructions Recorded Confirmed Type Acetaminophen Tab [Tylenol] 500 mg PO Q4H PRN 01/26/17 02/14/19 History Albuterol Nebulized [Ventolin 2.5 mg INHALATION RT-TID 01/26/17 02/14/19 History Nebulized] Budesonide/Formoterol Fumarate 2 puff INHALATION RT-BID PRN 01/26/17 02/14/19 History [Symbicort 160-4.5 Mcg Inhaler] Bumetanide [BUMEX] 3 mg PO DAILY 01/26/17 02/14/19 History Calcitriol [Rocaltrol] 0.25 mcg PO DAILY 01/26/17 02/14/19 History Cinnamon Bark [Cinnamon] 500 mg PO DAILY 01/26/17 02/14/19 History Fish Oil/Dha/Epa [Fish Oil 1,200 1 cap PO DAILY 01/26/17 02/14/19 History mg Fish Oil] Fluticasone Nasal [place] [Flonase 2 spray EA NOSTRIL DAILY 01/26/17 02/14/19 Hi story Nasal [place]] Isosorbide Mononitrate ER [Imdur] 60 mg PO DAILY 01/26/17 02/14/19 History Metolazone [Zaroxolyn] 2.5 mg PO DAILY 01/26/17 02/14/19 History Nitroglycerin Sl Tabs [Nitrostat] 0.4 mg SUBLINGUAL Q5M PRN 01/26/17 02/14/19 History Omeprazole [PriLOSEC] 20 mg PO DAILY 01/26/17 02/14/19 History Simvastatin [Zocor] 20 mg PO HS 01/26/17 02/14/19 History hydrALAZINE HCL [Apresoline] 25 mg PO TID 01/26/17 02/14/19 History rOPINIRole HCL [Requip] 1 mg PO BID 01/26/17 02/14/19 History Potassium Chloride Oral Liquid 40 meq PO DAILY 08/19/17 02/14/19 History Metoprolol Succinate (ER) [Toprol 100 mg PO DAILY 09/16/18 02/14/19 History XL] Allopurinol [Zyloprim] 100 mg PO BID 02/14/19 02/14/19 History Allergies Allergy/AdvReac Type Severity Reaction Status Date / Time levofloxacin [From Levaquin] Allergy Nausea & Verified 02/14/19 13:37 Vomiting codeine AdvReac Nausea & Verified 02/14/19 13:37 Vomiting fentanyl AdvReac Nausea & Verified 02/14/19 13:37 Vomiting hydrocodone AdvReac Nausea & Verified 02/14/19 13:37 Vomiting hydromorphone [From Dilaudid] AdvReac Hallucinati Verified 02/14/19 13:37 ons morphine AdvReac Nausea & Verified 02/14/19 13:37 Vomiting pentazocine [From Talwin] AdvReac Nausea & Verified 02/14/19 13:37 Vomiting propoxyphene [From Darvon] AdvReac Nausea & Verified 02/14/19 13:37 Vomiting tramadol AdvReac Nausea & Verified 02/14/19 13:37 Vomiting Physical Exam Vitals: Vital Signs Temp Pulse Pulse Resp BP BP Pulse Ox 02/15/19 08:20 97.1 F L 56 L 18 157/77 98 02/15/19 03:15 97.0 F L 61 22 142/69 97 02/14/19 23:00 97.0 F L 62 20 147/68 100 02/14/19 20:35 97.8 F 60 20 149/67 99 02/14/19 17:11 98.6 F 64 18 136/77 98 02/14/19 16:00 98 F 62 60 18 148/87 128/61 97 02/14/19 15:00 65 20 140/76 98 02/14/19 14:00 62 18 147/72 95 02/14/19 13:23 97.8 F 60 24 141/57 96 02/14/19 13:00 60 20 139/55 99 02/14/19 12:26 65 02/14/19 12:14 60 02/14/19 12:00 62 18 145/59 02/14/19 11:31 60 Intake and Output 02/14/19 02/15/19 02/15/19 22:59 06:59 14:59 Intake Total 20 260 Output Total 200 800 400 Balance -180 -540 -400 Intake: IV 20 20 Invasive Line 1 20 20 Oral 240 Output: Urine 200 800 400 Other: Voiding Method Toilet Toilet # Voids 1 1 Weight 86.7 kg On examination awake alert oriented on nasal cannula oxygen HEENT exam external jugular vein is dilated. Neck is supple no facial asymmetry no lymph nodes noted Heart sounds are remarkable for a grade 1 systolic ejection murmur of aortic stenosis. Lung exam significant for diminished air entry bilaterally with an occasional coarse crackle Abdomen is soft nontender no organomegaly status masses noted somewhat protuberant Extremity exam was 2+ edema Neurologically awake alert oriented Results - Lab Results Most recent lab results Calcium 9.5 mg/dL (8.4-10.2) 02/15/19 03:06 02/15/19 03:06 02/15/19 03:06 Assessment and Plan Assessment: Impression 1. Possible acute kidney injury with creatinine of 1.98, improved to 1.9 this morning. Secondary to congestive heart failure and cardiorenal syndrome 2. Chronic kidney disease, stage IIIB- IV , secondary to nephrosclerosis and possible diabetic nephropathy urinalysis is not available. baseline creatinine 1.4, dated 09/24/2017, GFR is 32 mL per minute, and more recent in the office creatinine is 1.8 with GFR of 26 in July 2018 3. Admitted with congestive heart failure and shortness of breath. 4. Ischemic cardiomyopathy status post CABG and stenting in the past ejection fraction 35-40% with pacer. 5. History of COPD on home O2 6. New onset of thrombocytopenia platelet count is 57,000. He was 1 34,000 a year ago in 2018.Cause is unclear. Recommendation 1. Maintain Bumex 1 mg IV twice a day for right now 2. Maintain strict I's and O's 3. Check urine protein to creatinine ratio, urinalysis 4. Check LDH to ensure there is no evidence of any thrombotic microangiopathy as an explanation for her low platelet count 5.
[2019-02-15 12:12] LABS: Glucose,Whole Blood 210 mg/dL (75-99)
--- NOTE | 2019-02-15 13:24 | P.PN ---
Subjective Progress Note Date: 02/15/19 Principal diagnosis: dyspnea patient continued to have wheezing through the night sitting up in chair but stated that she is improving overall Objective - Vital Signs Vital signs: Vital Signs Temp 97.1 F L 02/15/19 08:20 Pulse 60 02/15/19 11:53 Resp 18 02/15/19 11:53 BP 166/70 02/15/19 11:53 Pulse Ox 96 02/15/19 11:53 Intake & Output 02/14/19 02/15/19 02/15/19 18:59 06:59 18:59 Intake Total 280 Output Total 280 1000 400 Balance -280 -720 -400 Weight 86.183 kg 86.7 kg 86.7 kg Intake: IV 40 Invasive Line 1 40 Oral 240 Output: Urine 280 1000 400 Other: Voiding Method Toilet Toilet # Voids 1 - Exam Gen.: in stated age, no acute distress Heart: Normal S1-S2 Lungs: diffuse wheezing bilaterally Abdomen: Soft, no tenderness, positive bowel sounds in all 4 quadrant no guarding or rebound Skin: No new rash Psych: Alert and oriented 3 Neuro: No focal deficit - Labs CBC & Chem 7: 02/15/19 03:06 02/15/19 03:06 Labs: Abnormal Lab Results - Last 24 Hours (Table) 02/14/19 02/14/19 02/14/19 Range/Units 18:00 20:53 23:34 RDW (11.5-15.5) % Plt Count (150-450) k/uL Lymphocytes # (1.0-4.8) k/uL Sodium (137-145) mmol/L Chloride (98-107) mmol/L BUN (7-17) mg/dL Creatinine (0.52-1.04) mg/dL Glucose (74-99) mg/dL POC Glucose (mg/dL) 134 H (75-99) mg/dL AST (14-36) U/L Troponin I 0.038 H* 0.039 H* (0.000-0.034) ng/mL Total Protein (6.3-8.2) g/dL 02/15/19 02/15/19 02/15/19 Range/Units 03:06 03:06 03:06 RDW 15.7 H (11.5-15.5) % Plt Count 57 L (150-450) k/uL Lymphocytes # 0.4 L (1.0-4.8) k/uL Sodium 135 L (137-145) mmol/L Chloride 97 L (98-107) mmol/L BUN 49 H (7-17) mg/dL Creatinine 1.90 H (0.52-1.04) mg/dL Glucose 135 H (74-99) mg/dL POC Glucose (mg/dL) (75-99) mg/dL AST 67 H (14-36) U/L Troponin I 0.041 H* (0.000-0.034) ng/mL Total Protein 6.1 L (6.3-8.2) g/dL 02/15/19 02/15/19 Range/Units 06:09 12:01 RDW (11.5-15.5) % Plt Count (150-450) k/uL Lymphocytes # (1.0-4.8) k/uL Sodium (137-145) mmol/L Chloride (98-107) mmol/L BUN (7-17) mg/dL Creatinine (0.52-1.04) mg/dL Glucose (74-99) mg/dL POC Glucose (mg/dL) 137 H 210 H (75-99) mg/dL AST (14-36) U/L Troponin I (0.000-0.034) ng/mL Total Protein (6.3-8.2) g/dL Assessment and Plan Assessment: 1. Acute respiratory failure with hypoxia multifactorial including 2. COPD exacerbation. 3. Systolic congestive heart failure exacerbation with ejection fraction 35%. 4. Ischemic cardiomyopathy. 5. Hypertension. 6. Recent cataract surgery. 7. Aortic stenosis. 8. Chronic kidney disease stage IV. 9. Hyponatremia. 10. Mild thrombocytopenia. 11. Elevated troponin. Would continue with diuretics, continue cardioprotective medication, continue steroids tapering and continue aggressive pulmonary hygiene, monitor vital signs closely, follow-up with cardiology recommendation and encourage ambulation would have physical therapy evaluated the patient and consider discharging based on clinical progress
[2019-02-15 13:43] LABS: Appearance,Urine Clear (Clear); Bilirubin,Urine Negative (Negative); Blood,Urine Negative (Negative); Color,Urine Yellow; Glucose,Urine (UA) Negative (Negative); Ketones,Urine Negative (Negative); Leukocyte Esterase,Urine Negative (Negative); Nitrite,Urine Negative (Negative); Protein,Urine Negative (Negative); Urobilinogen,Urine <2.0 mg/dL (<2.0)
--- NOTE | 2019-02-15 13:57 | P.CRDCN ---
History of Present Illness History of present illness: HISTORY OF PRESENTING ILLNESS This is a pleasant 88-year-old female past medical history significant for coronary artery disease status post 5 vessel CABG in 2002, permanent pacema ker implantation, COPD, diabetes mellitus, hypertension, dyslipidemia, valvular heart disease, chronic persistent atrial fibrillation and chronic systolic heart failure. She follows in the office with Dr. Dueñas. We have been asked to see her in consultation secondary to shortness of breath. She is seen and examined sitting up in the chair in no acute distress. She states at rest she feels comfortable however with minimal activity even getting up to use the restroom she becomes quite dyspneic. This has been getting progressively worse over the previous 10 days. She has also noticed an increase in her weight of approximately 15 pounds in the previous one month. She denies chest discomfort, dizziness or palpitations. Echocardiogram obtained reveals impaired LV systolic function with ejection fraction 30-35%, severe global hypokinesia, moderate to severe aortic sclerosis with moderate aortic regurgitation and moderate aortic stenosis with a mean gradient of 27 mmHg, mild to moderate mitral regurgitation, mild to moderate mitral stenosis with a mean gradient of 5 mmHg, severe tricu spid regurgitation and mild pulmonary hypertension with an RVSP of 38 mmHg. DIAGNOSTICS EKG reveals ventricular paced rhythm.. Chest xray negative for an acute cardiopulmonary process. Laboratory reviewed, WBC 6.3, hemoglobin 12.4, platelets 57, sodium 135, potassium 3.8, creatinine 1.9, troponin 0.036, 0.038, 0.039 0.041, and T proBNP 21,700. Current cardiac medications include simvastatin 20 mg daily, Toprol 100 mg daily, Zaroxolyn 2.5 mg daily, hydralazine 25 mg 3 times a day, Imdur 60 mg da alicia and Bumex 3 mg daily. REVIEW OF SYSTEMS At the time of my exam: CONSTITUTIONAL: Denies fever or chills. CARDIOVASCULAR: Complains of exertional dyspnea. Denies chest pain, shortness of breath at rest, orthopnea, PND or palpitations. RESPIRATORY: Denies cough. GASTROINTESTINAL: Denies abdominal pain, diarrhea, constipation, nausea or vomiting. MUSCULOSKELETAL: Denies myalgias. NEUROLOGIC: Denies numbness, tingling or weakness. ENDOCRINE: Denies fatigue, polydipsia or polyurina. GENITOURINARY: Denies burning, hematuria or urgency with micturation. HEMATOLOGIC: Denies history of anemia or bleeding. PHYSICAL EXAMINATION Blood pressure 166/70 heart rate 60 afebrile and maintaining oxygen saturation on room air. CONSTITUTIONAL: No apparent distress. HEENT: Head is normocephalic. Pupils are equal, round. Sclerae anicteric. Mucous membranes of the mouth are moist. No JVD. No carotid bruit. CHEST EXAMINATION: Lungs are clear to auscultation. No chest wall tenderness is noted on palpation or with deep breathing. HEART EXAMINATION: Irregular rate and rhythm. S1, S2 heard. Systolic ejection murmur at the base, no gallops or rub. ABDOMEN: Soft, nontender. Positive bowel sounds. EXTREMITIES: 2+ peripheral pulses, 2+ bilateral lower extremity pitting edema and no calf tenderness. NEUROLOGIC EXAMINATION: Patient is awake, alert and oriented x3. ASSESSMENT Acute on chronic systolic heart failure Ischemic cardiomyopathy, ejection fraction 30-35% Coronary artery disease status post bypass grafting Chronic kidney disease Mild troponin elevation likely secondary to renal function with no significant rise and fall pattern to suggest an acute coronary syndrome. Significant valvular heart disease, aortic stenosis, mitral regurgitation and tricuspid regurgitation Thrombocytopenia PLAN Continue current medical regimen. Agree with IV diuresis. Recommend nephrology evaluation secondary to chronic kidney disease and the need for diuresis. Document accurate intake and output along with daily weights. Follow electrolytes and kidney function in the morning. Further recommendations to follow based upon clinical course. Thank you kindly for this consultation. Nurse Practitioner note has been reviewed, I agree with a documented findings and plan of care. Patient was seen and examined. Past Medical History Past Medical History: Coronary Artery Disease (CAD), Heart Failure, COPD, Diabetes Mellitus, GERD/Reflux, Hyperlipidemia, Hypertension, Renal Disease Additional Past Medical History / Comment(s): RLS, "borderline diabetes", CKD stage IV, anemia, hypocalcemia in past, "leaky heart valve",SSS with pacer, gout R foot, cataract R eye, chronic low back pain. aortic stenosis, cataract History of Any Multi-Drug Resistant Organisms: None Reported Past Surgical History: Back Surgery, Cholecystectomy, Coronary Bypass/CABG, Heart Catheterization, Hysterectomy, Joint Replacement, Orthopedic Surgery Additional Past Surgical History / Comment(s): 5 vessel Cabg 2002, 02/2009 Pacemaker, R total shoulder, back discectomy, R knee arthroscopy, EGD/colonoscopy, L cataract removal. Past Anesthesia/Blood Transfusion Reactions: No Reported Reaction Additional Past Anesthesia/Blood Transfusion Reaction / Comment(s): Pt has clausterphobia. Type of Cardiac Device: Permanent Pacemaker Device Placement Date:: gen change 02/11 Past Psychological History: Depression Smoking Status: Never smoker Past Alcohol Use History: None Reported Past Drug Use History: None Reported - Past Family History Father Family Medical History: COPD, Diabetes Mellitus Additional Family Medical History / Comment(s): Father developed diabetes and heart disease later in life. He lived to be 97yrs old. Mother Family Medical History: COPD, Diabetes Mellitus Additional Family Medical History / Comment(s): Mother had heart disease. She lived to be 70yrs old. Medications and Allergies Home Medications Medication Instructions Recorded Confirmed Type Acetaminophen Tab [Tylenol] 500 mg PO Q4H PRN 01/26/17 02/14/19 History Albuterol Nebulized [Ventolin 2.5 mg INHALATION RT-TID 01/26/17 02/14/19 History Nebulized] Budesonide/Formoterol Fumarate 2 puff INHALATION RT-BID PRN 01/26/17 02/14/19 History [Symbicort 160-4.5 Mcg Inhaler] Bumetanide [BUMEX] 3 mg PO DAILY 01/26/17 02/14/19 History Calcitriol [Rocaltrol] 0.25 mcg PO DAILY 01/26/17 02/14/19 History Cinnamon Bark [Cinnamon] 500 mg PO DAILY 01/26/17 02/14/19 History Fish Oil/Dha/Epa [Fish Oil 1,200 1 cap PO DAILY 01/26/17 02/14/19 History mg Fish Oil] Fluticasone Nasal Colby [Flonase 2 spray EA NOSTRIL DAILY 01/26/17 02/14/19 History Nasal Colby] Isosorbide Mononitrate ER [Imdur] 60 mg PO DAILY 01/26/17 02/14/19 History Metolazone [Zaroxolyn] 2.5 mg PO DAILY 01/26/17 02/14/19 History Nitroglycerin Sl Tabs [Nitrostat] 0.4 mg SUBLINGUAL Q5M PRN 01/26/17 02/14/19 Hi story Omeprazole [PriLOSEC] 20 mg PO DAILY 01/26/17 02/14/19 History Simvastatin [Zocor] 20 mg PO HS 01/26/17 02/14/19 History hydrALAZINE HCL [Apresoline] 25 mg PO TID 01/26/17 02/14/19 History rOPINIRole HCL [Requip] 1 mg PO BID 01/26/17 02/14/19 History Potassium Chloride Oral Liquid 40 meq PO DAILY 08/19/17 02/14/19 History Metoprolol Succinate (ER) [Toprol 100 mg PO DAILY 09/16/18 02/14/19 History XL] Allopurinol [Zyloprim] 100 mg PO BID 02/14/19 02/14/19 History Allergies Allergy/AdvReac Type Severity Reaction Status Date / Time levofloxacin [From Levaquin] Allergy Nausea & Verified 02/14/19 13:37 Vomiting codeine AdvReac Nausea & Verified 02/14/19 13:37 Vomiting fentanyl AdvReac Nausea & Verified 02/14/19 13:37 Vomiting hydrocodone AdvReac Nausea & Verified 02/14/19 13:37 Vomiting hydromorphone [From Dilaudid] AdvReac Hallucinati Verified 02/14/19 13:37 ons morphine AdvReac Nausea & Verified 02/14/19 13:37 Vomiting pentazocine [From Talwin] AdvReac Nausea & Verified 02/14/19 13:37 Vomiting propoxyphene [From Darvon] AdvReac Nausea & Verified 02/14/19 13:37 Vomiting tramadol AdvReac Nausea & Verified 02/14/19 13:37 Vomiting Physical Exam Vitals: Vital Signs Temp Pulse Pulse Resp BP BP Pulse Ox 02/15/19 11:53 60 18 166/70 96 02/15/19 08:20 97.1 F L 56 L 18 157/77 98 02/15/19 03:15 97.0 F L 61 22 142/69 97 02/14/19 23:00 97.0 F L 62 20 147/68 100 02/14/19 20:35 97.8 F 60 20 149/67 99 02/14/19 17:11 98.6 F 64 18 136/77 98 02/14/19 16:00 98 F 62 60 18 148/87 128/61 97 02/14/19 15:00 65 20 140/76 98 02/14/19 14:00 62 18 147/72 95 Intake and Output 02/14/19 02/15/19 02/15/19 22:59 06:59 14:59 Intake Total 20 260 Output Total 200 800 400 Balance -180 -540 -400 Intake: IV 20 20 Invasive Line 1 20 20 Oral 240 Output: Urine 200 800 400 Other: Voiding Method Toilet Toilet # Voids 1 1 Weight 86.7 kg 86.7 kg Results 02/15/19 03:06 02/15/19 03:06 Cardiac Enzymes 02/14/19 02/14/19 02/15/19 Range/Units 18:00 23:34 03:06 AST (14-36) U/L Lactate Dehydrogenase (313-618) U/L Troponin I 0.038 H* 0.039 H* 0.041 H* (0.000-0.034) ng/mL 02/15/19 02/15/19 Range/Units 03:06 03:06 AST 67 H (14-36) U/L Lactate Dehydrogenase 481 (313-618) U/L Troponin I (0.000-0.034) ng/mL CBC 02/15/19 Range/Units 03:06 WBC 6.3 (3.8-10.6) k/uL RBC 4.04 (3.80-5.40) m/uL Hgb 12.4 (11.4-16.0) gm/dL Hct 38.8 (34.0-46.0) % Plt Count 57 L (150-450) k/uL Comprehensive Metabolic Panel 02/15/19 Range/Units 03:06 Sodium 135 L (137-145) mmol/L Potassium 3.8 (3.5-5.1) mmol/L Chloride 97 L (98-107) mmol/L Carbon Dioxide 28 (22-30) mmol/L BUN 49 H (7-17) mg/dL Creatinine 1.90 H (0.52-1.04) mg/dL Glucose 135 H (74-99) mg/dL Calcium 9.5 (8.4-10.2) mg/dL AST 67 H (14-36) U/L ALT 13 (4-34) U/L Alkaline Phosphatase 118 (38-126) U/L Total Protein 6.1 L (6.3-8.2) g/dL Albumin 3.9 (3.5-5.0) g/dL Current Medications Generic Name Dose Route Start Last Admin Trade Name Freq PRN Reason Stop Dose Admin Acetaminophen 500 mg 02/14/19 15:38 Tylenol Tab PO Q4H PRN Mild Pain Allopurinol 100 mg 02/14/19 21:00 02/15/19 10:11 Zyloprim PO 100 mg BID ARIK Administration Atorvastatin Calcium 10 mg 02/14/19 21:00 02/14/19 21:33 Lipitor PO 10 mg HS ARIK Administration Budesonide/Formoterol Fumarate 2 puff 02/14/19 15:38 Symbicort 160-4.5 Mcg Inhaler INHALATION RT-BID PRN Shortness Of Breath Bumetanide 1 mg 02/14/19 21:00 02/15/19 10:44 Bumex IVP 1 mg BID ARIK Administration Calcitriol 0.25 mcg 02/15/19 09:00 02/15/19 10:11 Rocaltrol PO 0.25 mcg DAILY ARIK Administration Hydralazine HCl 25 mg 02/14/19 16:00 02/15/19 10:11 Apresoline PO 25 mg TID ARIK Administration Insulin Aspart 0 unit 02/14/19 21:23 02/15/19 12:36 Novolog SQ 6 unit ACHS ARIK Administration Protocol Isosorbide Mononitrate 60 mg 02/15/19 09:00 02/15/19 10:11 Imdur PO 60 mg DAILY ARIK Administration Methylprednisolone Sodium Succinate 60 mg 02/14/19 18:00 02/15/19 10:11 Solu-Medrol IV 60 mg Q6HR ARIK Administration Metoprolol Succinate 100 mg 02/15/19 09:00 02/15/19 10:11 Toprol Xl PO 100 mg DAILY ARIK Administration Pantoprazole Sodium 40 mg 02/15/19 07:30 02/15/19 06:20 Protonix PO 40 mg AC-[id number] ARIK Administration Potassium Chloride 40 meq 02/15/19 09:00 02/15/19 10:11 K-Dur 20 PO 40 meq DAILY ARIK Administration Ropinirole HCl 1 mg 02/14/19 21:00 02/15/19 10:11 Requip PO 1 mg BID ARIK Administration Sodium Chloride 10 ml 02/14/19 21:00 02/15/19 10:12 Saline Flush IV Not Given BID ARIK Intake and Output 02/14/19 02/15/19 02/15/19 22:59 06:59 14:59 Intake Total 20 260 Output Total 200 800 400 Balance -180 -540 -400 Intake: IV 20 20 Invasive Line 1 20 20 Oral 240 Output: Urine 200 800 400 Other: Voiding Method Toilet Toilet # Voids 1 1 Weight 86.7 kg 86.7 kg Patient Weight 02/16/19 06:59 Weight 86.7 kg 02/15/19 03:06 02/15/19 03:06
[2019-02-15 14:18] LABS: Protein/Creatinine Ratio,Urine 0.3
[2019-02-15 17:28] LABS: Glucose,Whole Blood 159 mg/dL (75-99)
[2019-02-15 20:37] LABS: Glucose,Whole Blood 196 mg/dL (75-99)
--- NOTE | 2019-02-15 21:14 | CONS ---
CONSULTATION DATE OF SERVICE: February 15, 2019. REASON FOR CONSULTATION: Thrombocytopenia. CHIEF COMPLAINT: Short of breath. HISTORY OF PRESENT ILLNESS: Citlalli is a pleasant 88 years old lady with significant past medical history. She presented to the emergency department with significant worsening dyspnea, which has been going on for about 3 weeks, associated with fluid retention and weight gain. The patient ended up being admitted to the hospital for acute respiratory failure with hypoxemia, felt to be secondary to COPD exacerbation and systolic congestive heart failure exacerbation. In the emergency department, her platelet count were 58 K and repeated this morning were also 57 K. Upon reviewing her previous CBC in her electronic medical record, she has had thrombocytopenia in the range of 110-120 in the past. Her hemoglobin and white cells are within normal limits and her differential is within normal limits as well. The patient herself denies any previous hematologic problem that she is aware of. As stated, she has been complaining of significant dyspnea, which has gotten worse over the last couple 3 weeks and she also has gained significant weight and she developed edema in her lower extremities. She complains of generalized bruises mostly on her extremities and she denies any melena, hematochezia, hematuria, hemoptysis, hematemesis or epistaxis. She denies any fever, chills, or night sweats or sore throat. Her appetite has been fair. She has chronic arthritic pain. She has poor vision. PAST MEDICAL HISTORY: Her past medical history is significant for chronic kidney disease, COPD. She is oxygen dependent. Mainly at night. She has hypertension, restless legs syndrome, coronary artery disease with previous cardiac bypass surgery and also she has a pacemaker placement. She is diabetic. She has history of hypertension, hyperlipidemia. She has ischemic cardiomyopathy with ejection fraction of 35%. She has valvular heart disease. PAST SURGICAL HISTORY: She had back surgery, cholecystectomy, cardiac bypass surgery, heart catheterization, hysterectomy, right knee replacement, EGD, colonoscopy, and cataract surgery. SOCIAL HISTORY: No history of smoking, alcohol abuse or substance abuse. FAMILY HISTORY: Significant for COPD and diabetes mellitus in her mother and her father had diabetes and he at age 97. ALLERGIES: TO SHE HAS ALLERGIES TO LEVAQUIN, CODEINE, FENTANYL, HYDROCODONE, DILAUDID, MORPHINE, TALWIN, DARVON, TRAMADOL. REVIEW OF SYSTEMS: As stated above in the history of present illness, otherwise negative. PHYSICAL EXAMINATION: She is alert, oriented x3. Elderly lady. She answers questions appropriately. She does not appear to be in distress. Her vital signs: Temperature 97.1, blood pressure 157/77, pulse 60, respiration 18, pulse ox 96 percent on room air. HEENT: Normocephalic, atraumatic. No obvious icterus. NECK: Supple. Chest equal expansion bilaterally. LUNGS: Scattered rhonchi and wheezing in all elaine. Heart is regular rate and rhythm. ABDOMEN: Soft. No obvious organomegaly or masses. EXTREMITIES revealed 2+ edema. Multiple bruises noted on her upper extremities and lower extremities and also she has few bruises on her chest. LYMPHATICS: no peripherally enlarged cervical or supraclavicular nodes. MUSCULOSKELETAL: No percussion tenderness detected over the spine or sternum. LABORATORY DATA: Showed a WBC of 6.3, hemoglobin 12.4, hematocrit 38.3, platelet count 57. IMPRESSION: Isolated thrombocytopenia with otherwise normal CBC count and differential. As stated above, the patient has had borderline thrombocytopenia in the past. There is no clinical evidence to suggest peripheral sequestration, or causing her thrombocytopenia. Immune thrombocytopenia is a possibility especially in view of isolated thrombocytopenia. However, other causes in elderly patients such as lymphoproliferative neoplasm or myelodysplasia cannot be excluded. I will order basic laboratory workup today. Ideally, a bone marrow evaluation would be considered. However, in view of her age, and multiple comorbidities, it is very unlikely to change her overall clinical management. I would recommend to monitor blood count for now. She may continue with aspirin as prescribed. The above was discussed in detail with the patient and her niece at bedside and answered all their questions to their satisfaction. Thank you very much for asking me to participate in the care of this nice lady. MMODL / IJN: [id number] /
[2019-02-15] MEDS: ATORVASTATIN 10 MG TAB PO SCH (21:56)
[2019-02-15 23:21] LABS: % Iron Saturation 11.45 (12.00-45.00)
[2019-02-15 23:29] LABS: Ferritin 126.7 ng/mL (10.0-291.0)
[2019-02-16] MEDS: methylPREDNISolone SOD SUCCI 125 MG/2 ML VIAL IV SCH ×5 (00:48→23:29)
[2019-02-16] MEDS: PANTOPRAZOLE 40 MG TABLET PO SCH (06:12)
[2019-02-16 06:15] LABS: Glucose,Whole Blood 149 mg/dL (75-99)
[2019-02-16 06:15] LABS: Basophils % (A) 0 %; Eosinophils % (A) 0 %; HCT 38.8 % (34.0-46.0); HGB 12.6 gm/dL (11.4-16.0); Hypochromasia Slight; Lymphocytes # (A) 0.5 k/uL (1.0-4.8); Lymphocytes % (A) 7 %; MCH 31.4 pg (25.0-35.0); MCHC 32.5 g/dL (31.0-37.0); MCV 96.8 fL (80.0-100.0); Mean Platelet Volume 10.2; Monocytes # (A) 0.2 k/uL (0-1.0); Monocytes % (A) 2 %; Neutrophils # (A) 7.3 k/uL (1.3-7.7); Neutrophils % (A) 91 %; RBC 4.01 m/uL (3.80-5.40); RDW 15.7 % (11.5-15.5)
[2019-02-16] MEDS: INSULIN ASPART (NovoLOG) 100 UNIT/ML VIAL SQ SCH ×4 (06:17→21:19)
[2019-02-16 06:20] LABS: Platelet Count 65 k/uL (150-450)
[2019-02-16 06:28] LABS: Albumin 4.1 g/dL (3.5-5.0); Calcium 9.8 mg/dL (8.4-10.2); Potassium 4.5 mmol/L (3.5-5.1); Total Bilirubin 1.1 mg/dL (0.2-1.3); Total Protein 6.5 g/dL (6.3-8.2)
[2019-02-16] MEDS: SYMBICORT 160-4.5 MCG INHALER INHALATION PRN ×2 (08:56→19:57)
[2019-02-16] MEDS: CALCITRIOL 0.25 MCG CAP PO SCH (09:16)
[2019-02-16] MEDS: ALLOPURINOL 100 MG TAB PO SCH ×2 (09:16→21:12)
[2019-02-16] MEDS: POTASSIUM CHLORIDE ER 20 MEQ TAB.ER PO SCH (09:16)
[2019-02-16] MEDS: BUMETANIDE 0.25 MG/ML 4 ML VIAL IVP SCH ×2 (09:17→21:16)
[2019-02-16] MEDS: ISOSORBIDE MONONITRATE ER 60 MG TAB.ER.24H PO SCH (09:17)
[2019-02-16] MEDS: hydrALAZINE HCL 25 MG TAB PO SCH ×3 (09:17→21:12)
[2019-02-16] MEDS: METOPROLOL SUCCINATE (ER) 100 MG TAB.ER.24H PO SCH (09:17)
--- NOTE | 2019-02-16 10:03 | P.PN ---
Subjective HISTORY OF PRESENTING ILLNESS This is a pleasant 88-year-old female past medical history significant for coronary artery disease status post 5 vessel CABG in 2002, permanent pacemaker implantation, COPD, diabetes mellitus, hypertension, dyslipidemia, valvular heart disease, chronic persistent atrial fibrillation and chronic systolic heart failure. She follows in the office with Dr. Dueñas. She was seen and examined sitting up in a chair. She has been getting up and he is in the restroom urinating quite frequently. She continues to feel dyspneic at rest and with exertion. She denies chest pain, dizziness or palpitations. Laboratory data reviewed, WBC 8.0, hemoglobin 12.6, platelets 65, sodium 138, potassium 4.5, creatinine 2.04. Blood pressure 136/68 heart rate 60 afebrile maintaining oxygen saturation on nasal cannula. Maintaining a negative fluid balance. PHYSICAL EXAMINATION CONSTITUTIONAL: No apparent distress. HEENT: Head is normocephalic. Pupils are equal, round. Sclerae anicteric. Mucous membranes of the mouth are moist. No JVD. No carotid bruit. CHEST EXAMINATION: Expiratory wheezes noted throughout. No chest wall tenderness is noted on palpation or with deep breathing. HEART EXAMINATION: Irregular rate and rhythm. S1, S2 heard. Systolic ejection murmur at the base, no gallops or rub. EXTREMITIES: 2+ peripheral pulses, 2+ bilateral lower extremity pitting edema and no calf tenderness. ASSESSMENT Acute on chronic systolic heart failure Ischemic cardiomyopathy, ejection fraction 30-35% Coronary artery disease status post bypass grafting Chronic kidney disease Mild troponin elevation likely secondary to renal function with no significant rise and fall pattern to suggest an acute coronary syndrome. Significant valvular heart disease, aortic stenosis, mitral regurgitation and tricuspid regurgitation Thrombocytopenia PLAN Continue current medical regimen. Nephrology is following and appreciate their diuretic recommendations. Repeat renal function and electrolytes in the morning. Nurse Practitioner note has been reviewed, I agree with a documented findings and plan of care. Patient was seen and examined. Objective - Vital Signs Vital signs: Vital Signs Temp 97.4 F L 02/16/19 08:10 Pulse 60 02/16/19 08:10 Resp 18 02/16/19 08:10 BP 136/68 02/16/19 08:10 Pulse Ox 96 02/16/19 08:10 Intake & Output 02/15/19 02/16/19 02/16/19 18:59 06:59 18:59 Intake Total 60 240 Output Total 1000 400 300 Balance -940 -400 -60 Weight 86.7 kg 87.6 kg Intake: IV 60 Invasive Line 1 60 Oral 240 Output: Urine 1000 400 300 Other: Voiding Method Toilet Toilet # Voids 1 - Labs CBC & Chem 7: 02/16/19 05:46 02/16/19 05:46 Labs: Abnormal Lab Results - Last 24 Hours (Table) 02/15/19 02/15/19 02/15/19 Range/Units 03:06 12:01 17:04 RDW (11.5-15.5) % Plt Count (150-450) k/uL Lymphocytes # (1.0-4.8) k/uL BUN (7-17) mg/dL Creatinine (0.52-1.04) mg/dL Glucose (74-99) mg/dL POC Glucose (mg/dL) 210 H 159 H (75-99) mg/dL Iron 38 L (50-170) ug/dL % Saturation 11.45 L (12.00-45.00) AST (14-36) U/L 02/15/19 02/16/19 02/16/19 Range/Units 20:35 05:46 05:46 RDW 15.7 H (11.5-15.5) % Plt Count 65 L (150-450) k/uL Lymphocytes # 0.5 L (1.0-4.8) k/uL BUN 57 H (7-17) mg/dL Creatinine 2.04 H (0.52-1.04) mg/dL Glucose 154 H (74-99) mg/dL POC Glucose (mg/dL) 196 H (75-99) mg/dL Iron (50-170) ug/dL % Saturation (12.00-45.00) AST 67 H (14-36) U/L 02/16/19 Range/Units 06:14 RDW (11.5-15.5) % Plt Count (150-450) k/uL Lymphocytes # (1.0-4.8) k/uL BUN (7-17) mg/dL Creatinine (0.52-1.04) mg/dL Glucose (74-99) mg/dL POC Glucose (mg/dL) 149 H (75-99) mg/dL Iron (50-170) ug/dL % Saturation (12.00-45.00) AST (14-36) U/L
--- NOTE | 2019-02-16 11:16 | P.PN ---
Subjective Progress Note Date: 02/16/19 Principal diagnosis: This is an 88-year-old female seen in consultation because of chronic kidney disease stage IV, with a baseline creatinine of 1.45 dated 09/24/2017, came in with a creatinine of 1.98. She was admitted with worsening shortness of breath since her recent cataract surgery. No changes in medications that she is aware of denies taking any nonsteroidals. No history of fever chills. No nausea vomiting diarrhea abdominal pain No dysuria frequency. Previously her echocardiogram in January 2018 a year ago showed ejection fraction of 35-40% dilated LA, moderate aortic stenosis severe tricuspid regurg and moderate mitral regurg. She is known with chronic diabetes, coronary artery disease, coronary artery bypass graft and pacemaker. She was continued on Bumex IV every 12. This morning she said she was feeling very short of breath but has improved. No chest pain she has a great appetite. Vital signs are stable blood pressure in the 1:30 to 160 range she was afebrile 24-hour output was 1400 mL. Her creatinine remained high and went up from 1.9-2 .04 Objective - Vital Signs Vital signs: Vital Signs Temp 97.4 F L 02/16/19 08:10 Pulse 60 02/16/19 08:10 Resp 18 02/16/19 08:10 BP 136/68 02/16/19 08:10 Pulse Ox 96 02/16/19 08:10 Intake & Output 02/15/19 02/16/19 02/16/19 18:59 06:59 18:59 Intake Total 60 240 Output Total 1000 400 300 Balance -940 -400 -60 Weight 86.7 kg 87.6 kg Intake: IV 60 Invasive Line 1 60 Oral 240 Output: Urine 1000 400 300 Other: Voiding Method Toilet Toilet Toilet # Voids 1 On examination she is awake alert oriented comfortable. HEENT exam external JVP is full Neck is supple no facial asymmetry. Lungs are clear with an occasional end expiratory wheezing fair air entry bilaterally Heart sounds are remarkable for grade 1 systolic ejection murmur Abdomen soft nontender Extremity exam was minimal edema Neurologically awake alert oriented - Labs CBC & Chem 7: 02/16/19 05:46 02/16/19 05:46 Labs: Abnormal Lab Results - Last 24 Hours (Table) 02/15/19 02/15/19 02/15/19 Range/Units 03:06 12:01 17:04 RDW (11.5-15.5) % Plt Count (150-450) k/uL Lymphocytes # (1.0-4.8) k/uL BUN (7-17) mg/dL Creatinine (0.52-1.04) mg/dL Glucose (74-99) mg/dL POC Glucose (mg/dL) 210 H 159 H (75-99) mg/dL Iron 38 L (50-170) ug/dL % Saturation 11.45 L (12.00-45.00) AST (14-36) U/L 02/15/19 02/16/19 02/16/19 Range/Units 20:35 05:46 05:46 RDW 15.7 H (11.5-15.5) % Plt Count 65 L (150-450) k/uL Lymphocytes # 0.5 L (1.0-4.8) k/uL BUN 57 H (7-17) mg/dL Creatinine 2.04 H (0.52-1.04) mg/dL Glucose 154 H (74-99) mg/dL POC Glucose (mg/dL) 196 H (75-99) mg/dL Iron (50-170) ug/dL % Saturation (12.00-45.00) AST 67 H (14-36) U/L 02/16/19 Range/Units 06:14 RDW (11.5-15.5) % Plt Count (150-450) k/uL Lymphocytes # (1.0-4.8) k/uL BUN (7-17) mg/dL Creatinine (0.52-1.04) mg/dL Glucose (74-99) mg/dL POC Glucose (mg/dL) 149 H (75-99) mg/dL Iron (50-170) ug/dL % Saturation (12.00-45.00) AST (14-36) U/L Assessment and Plan Assessment: Impression 1. Possible acute kidney injury with creatinine of 1.98, improved to 1.9 this morning. Secondary to congestive heart failure and cardiorenal syndrome. With diuretics Bumex 1 mg every 12 creatinine has gone up to 2.04. Remained short of breath 2. Chronic kidney disease, stage IIIB- IV , secondary to nephrosclerosis, no evidence of diabetic nephropathy with urinalysis showing no proteinuria. urine protein to creatinine ratio is 0.3 as of 02/15/2019 baseline creatinine 1.4, dated 09/24/2017, GFR is 32 mL per minute, and more recent in the office creatinine is 1.8 with GFR of 26 in July 2018 3. Admitted with congestive heart failure and shortness of breath. 4. Ischemic cardiomyopathy status post CABG and stenting in the past ejection fraction 35-40% with pacer. 5. History of COPD on home O2 6. New onset of thrombocytopenia platelet count is 57,000.He her platelet count was 1 34,000 a year ago in 2018, and further on 01/26/2017 as well as 154,000 .Cause is unclear. LDH is ordered pending Recommendation 1. Maintain Bumex 1 mg IV twice a day for right now 2. Maintain strict I's and O's 3. Check urine protein to creatinine ratio, urinalysis 4. Check LDH to ensure there is no evidence of any thrombotic microangiopathy as an explanation for her low platelet count 5. check for schistocytes on peripheral smear 6. Check orthostatic changes nurses will call me with the results
[2019-02-16 11:45] LABS: Glucose,Whole Blood 218 mg/dL (75-99)
--- NOTE | 2019-02-16 12:34 | P.PN ---
Subjective Progress Note Date: 02/16/19 Principal diagnosis: dyspnea patient to to be hemodynamically stable no major events reported by nursing staff except for minor anxiety as patient was concerned about her family and multiple other issues. Patient is sitting up in chair seems to be relaxed in no acute distress Objective - Vital Signs Vital signs: Vital Signs Temp 97.4 F L 02/16/19 08:10 Pulse 60 02/16/19 08:10 Resp 18 02/16/19 08:10 BP 136/68 02/16/19 08:10 Pulse Ox 96 02/16/19 08:10 Intake & Output 02/15/19 02/16/19 02/16/19 18:59 06:59 18:59 Intake Total 60 240 Output Total 1000 400 300 Balance -940 -400 -60 Weight 86.7 kg 87.6 kg Intake: IV 60 Invasive Line 1 60 Oral 240 Output: Urine 1000 400 300 Other: Voiding Method Toilet Toilet Toilet # Voids 1 - Exam Gen.: in stated age, no acute distress Heart: Normal S1-S2 Lungs: diffuse wheezing bilaterallybut improved from prior examination Abdomen: Soft, no tenderness, positive bowel sounds in all 4 quadrant no guarding or rebound Skin: No new rash Psych: Alert and oriented 3 Neuro: No focal deficit - Labs CBC & Chem 7: 02/16/19 05:46 02/16/19 05:46 Labs: Abnormal Lab Results - Last 24 Hours (Table) 02/15/19 02/15/19 02/15/19 Range/Units 03:06 17:04 20:35 RDW (11.5-15.5) % Plt Count (150-450) k/uL Lymphocytes # (1.0-4.8) k/uL BUN (7-17) mg/dL Creatinine (0.52-1.04) mg/dL Glucose (74-99) mg/dL POC Glucose (mg/dL) 159 H 196 H (75-99) mg/dL Iron 38 L (50-170) ug/dL % Saturation 11.45 L (12.00-45.00) AST (14-36) U/L 02/16/19 02/16/19 02/16/19 Range/Units 05:46 05:46 06:14 RDW 15.7 H (11.5-15.5) % Plt Count 65 L (150-450) k/uL Lymphocytes # 0.5 L (1.0-4.8) k/uL BUN 57 H (7-17) mg/dL Creatinine 2.04 H (0.52-1.04) mg/dL Glucose 154 H (74-99) mg/dL POC Glucose (mg/dL) 149 H (75-99) mg/dL Iron (50-170) ug/dL % Saturation (12.00-45.00) AST 67 H (14-36) U/L 02/16/19 Range/Units 11:43 RDW (11.5-15.5) % Plt Count (150-450) k/uL Lymphocytes # (1.0-4.8) k/uL BUN (7-17) mg/dL Creatinine (0.52-1.04) mg/dL Glucose (74-99) mg/dL POC Glucose (mg/dL) 218 H (75-99) mg/dL Iron (50-170) ug/dL % Saturation (12.00-45.00) AST (14-36) U/L Assessment and Plan Assessment: 1. Acute respiratory failure with hypoxia multifactorial including 2. COPD exacerbation. 3. Systolic congestive heart failure exacerbation with ejection fraction 35%. 4. Ischemic cardiomyopathy. 5. Hypertension. 6. Recent cataract surgery. 7. Aortic stenosis. 8. Chronic kidney disease stage IV. 9. Hyponatremia. 10. Mild thrombocytopenia. 11. Elevated troponin. patient seems to be improving since yesterday but I would like to continue monitoring kidney function closely continue current diuretics and monitor electrolytes avoid nephrotoxic medication. Patient with stable creatinine overall with mild elevation but will follow-up with nephrology recommendation. Would continue current steroid dose continue aggressive pulmonary hygiene and continue cardioprotective medication at this point. Regarding her cataract patient will benefit from follow-up outpatient with her cytology technologist. I discussed with patient and nursing staff starting Xanax 0.25 every 6 hours as needed for anxiety.
[2019-02-16] MEDS: ALPRAZolam 0.25 MG TAB PO PRN (12:43)
[2019-02-16 16:54] LABS: Glucose,Whole Blood 157 mg/dL (75-99)
[2019-02-16 20:14] LABS: Glucose,Whole Blood 152 mg/dL (75-99)
[2019-02-16] MEDS: ATORVASTATIN 10 MG TAB PO SCH (21:12)
[2019-02-17 06:14] LABS: Glucose,Whole Blood 177 mg/dL (75-99)
[2019-02-17 06:52] LABS: Basophils % (A) 0 %; Eosinophils % (A) 0 %; HCT 39.5 % (34.0-46.0); HGB 12.6 gm/dL (11.4-16.0); Hypochromasia Slight; Lymphocytes # (A) 0.4 k/uL (1.0-4.8); Lymphocytes % (A) 4 %; MCH 31.1 pg (25.0-35.0); MCV 97.1 fL (80.0-100.0); Macrocytosis Slight; Mean Platelet Volume 10.7; Monocytes # (A) 0.2 k/uL (0-1.0); Monocytes % (A) 2 %; Neutrophils # (A) 8.6 k/uL (1.3-7.7); Neutrophils % (A) 93 %; RBC 4.07 m/uL (3.80-5.40); RDW 15.8 % (11.5-15.5); WBC 9.2 k/uL (3.8-10.6)
[2019-02-17] MEDS: PANTOPRAZOLE 40 MG TABLET PO SCH (06:52)
[2019-02-17] MEDS: INSULIN ASPART (NovoLOG) 100 UNIT/ML VIAL SQ SCH ×4 (06:52→21:00)
[2019-02-17] MEDS: methylPREDNISolone SOD SUCCI 125 MG/2 ML VIAL IV SCH ×4 (06:52→23:06)
[2019-02-17 06:54] LABS: Platelet Count 61 k/uL (150-450)
[2019-02-17 07:01] LABS: Albumin 4.2 g/dL (3.5-5.0); Potassium 5.2 mmol/L (3.5-5.1); Total Bilirubin 0.9 mg/dL (0.2-1.3); Total Protein 6.4 g/dL (6.3-8.2)
[2019-02-17] MEDS: hydrALAZINE HCL 25 MG TAB PO SCH ×3 (08:34→20:05)
[2019-02-17] MEDS: BUMETANIDE 0.25 MG/ML 4 ML VIAL IVP SCH ×2 (08:34→20:05)
[2019-02-17] MEDS: METOPROLOL SUCCINATE (ER) 100 MG TAB.ER.24H PO SCH (08:34)
[2019-02-17] MEDS: POTASSIUM CHLORIDE ER 20 MEQ TAB.ER PO SCH (08:34)
[2019-02-17] MEDS: ISOSORBIDE MONONITRATE ER 60 MG TAB.ER.24H PO SCH (08:35)
[2019-02-17] MEDS: CALCITRIOL 0.25 MCG CAP PO SCH (08:35)
[2019-02-17] MEDS: ALLOPURINOL 100 MG TAB PO SCH ×2 (08:35→20:05)
[2019-02-17 10:32] LABS: Hepatitis C IgG Antibody Non-Reactive (Non-Reactive)
[2019-02-17 11:23] LABS: Glucose,Whole Blood 165 mg/dL (75-99)
--- NOTE | 2019-02-17 14:58 | P.PN ---
Subjective Progress Note Date: 02/17/19 This is a pleasant 88-year-old female past medical history significant for coronary artery disease status post 5 vessel CABG in 2002, permanent pacemaker implantation, COPD, diabetes mellitus, hypertension, dyslipidemia, valvular heart disease, chronic persistent atrial fibrillation and chronic systolic heart failure. She follows in the office with Dr. Dueñas. We have been asked to see her in consultation secondary to shortness of breath.patient was seen and examined this morning, sitting up in the chair at bedside, had been up ambulating earlier, complaints of feeling short of breath, although she does feel better than yesterday.weight blood cell count 9.2, hemoglobin 12.6, platelet count 61, sodium 136, potassium 5.2, BUN 71 and creatinine 2.2. Objective - Vital Signs Vital signs: Vital Signs Temp 97.5 F L 02/17/19 11:20 Pulse 60 02/17/19 11:20 Resp 18 02/17/19 11:20 BP 173/77 02/17/19 11:20 Pulse Ox 99 02/17/19 11:20 Intake & Output 02/16/19 02/17/19 02/17/19 18:59 06:59 18:59 Intake Total 240 120 486 Output Total 300 Balance -60 120 486 Weight 89 kg Intake: Oral 240 120 486 Output: Urine 300 Other: Voiding Method Toilet Toilet - Exam CONSTITUTIONAL: No apparent distress. HEENT: Head is normocephalic. Pupils are equal, round. Sclerae anicteric. Mucous membranes of the mouth are moist. No JVD. No carotid bruit. CHEST EXAMINATION: Lungs are clear to auscultation. No chest wall tenderness is noted on palpation or with deep breathing. HEART EXAMINATION: Irregular rate and rhythm. S1, S2 heard. Systolic ejection murmur at the base, no gallops or rub. ABDOMEN: Soft, nontender. Positive bowel sounds. EXTREMITIES: 2+ peripheral pulses, 2+ bilateral lower extremity pitting edema and no calf tenderness. NEUROLOGIC EXAMINATION: Patient is awake, alert and oriented x3. - Labs CBC & Chem 7: 02/17/19 06:25 02/17/19 06:25 Labs: Abnormal Lab Results - Last 24 Hours (Table) 02/16/19 02/16/19 02/16/19 Range/Units 05:46 05:46 16:52 RDW (11.5-15.5) % Plt Count (150-450) k/uL Neutrophils # (1.3-7.7) k/uL Lymphocytes # (1.0-4.8) k/uL Sodium (137-145) mmol/L Potassium (3.5-5.1) mmol/L Chloride (98-107) mmol/L BUN (7-17) mg/dL Creatinine (0.52-1.04) mg/dL Glucose (74-99) mg/dL POC Glucose (mg/dL) 157 H (75-99) mg/dL AST (14-36) U/L Total Protein (PEP) 6.0 L (6.2-8.2) g/dL RBC Folate 1,034 H (280 - 791) ng/mL 02/16/19 02/17/19 02/17/19 Range/Units 20:12 06:14 06:25 RDW 15.8 H (11.5-15.5) % Plt Count 61 L (150-450) k/uL Neutrophils # 8.6 H (1.3-7.7) k/uL Lymphocytes # 0.4 L (1.0-4.8) k/uL Sodium (137-145) mmol/L Potassium (3.5-5.1) mmol/L Chloride (98-107) mmol/L BUN (7-17) mg/dL Creatinine (0.52-1.04) mg/dL Glucose (74-99) mg/dL POC Glucose (mg/dL) 152 H 177 H (75-99) mg/dL AST (14-36) U/L Total Protein (PEP) (6.2-8.2) g/dL RBC Folate (280 - 791) ng/mL 02/17/19 02/17/19 Range/Units 06:25 11:21 RDW (11.5-15.5) % Plt Count (150-450) k/uL Neutrophils # (1.3-7.7) k/uL Lymphocytes # (1.0-4.8) k/uL Sodium 136 L (137-145) mmol/L Potassium 5.2 H (3.5-5.1) mmol/L Chloride 97 L (98-107) mmol/L BUN 71 H (7-17) mg/dL Creatinine 2.28 H (0.52-1.04) mg/dL Glucose 152 H (74-99) mg/dL POC Glucose (mg/dL) 165 H (75-99) mg/dL AST 74 H (14-36) U/L Total Protein (PEP) (6.2-8.2) g/dL RBC Folate (280 - 791) ng/mL Assessment and Plan Plan: ASSESSMENTand plan #1Acute on chronic systolic heart failure #2Ischemic cardiomyopathy, ejection fraction 30-35% #3Coronary artery disease status post bypass grafting #4Chronic kidney disease #Mild troponin elevation likely secondary to renal function with no significant rise and fall pattern to suggest an acute coronary syndrome. #6Significant valvular heart disease, aortic stenosis, mitral regurgitation and tricuspid regurgitation #7Thrombocytopenia plan We will continue patient on current dose of IV Bumex, repeat chest x-ray in the morning. Continue to monitor intake and output along with daily weights and daily lytes BUN and creatinine DNP note has been reviewed, I agree with a documented findings and plan of care. Patient was seen and examined.
[2019-02-17 17:01] LABS: Glucose,Whole Blood 200 mg/dL (75-99)
--- NOTE | 2019-02-17 17:50 | XR ---
EXAMINATION TYPE: XR chest 1V portable DATE OF EXAM: 02/17/2019 COMPARISON: 02/14/2019 HISTORY: Short of breath TECHNIQUE: Single view FINDINGS: Heart is moderately enlarged. There is no gross heart failure. There is a left axillary pac emaker. There are sternal wires. Thoracic aorta is atheromatous. There is right shoulder prosthesis. There is slight blunting of the costophrenic angles. IMPRESSION: Moderate cardiomegaly. Small pleural effusions. No obvious heart failure. No adverse reyes ge. Pulmonary vascularity is improved slightly compared to last exam.
--- NOTE | 2019-02-17 18:36 | P.PN ---
Subjective Progress Note Date: 02/17/19 This is an 88-year-old female one of Dr. Cade patient's, she has a past medical history of chronic kidney disease stage IV, COPD, oxygen dependent on 2- 3 Lmostly at night, hypertension, restless leg syndrome, history of coronary artery disease, and prior coronary artery bypass 5 in 2002, pacemaker in 2009,generator change in 01/2017,2 diabetes, hypertension and dyslipidemia. patient comes in today with worsening shortness of breath for the past 1 week. Patient is always short of breath but for the past 1 week she has noticed increased shortness of breath at rest. She had a cataract surgery done on Sunday and was asked to follow with the primary care physician since there was no improvement in symptoms patient decided to come to the ER. She endorses shortness of breath associated with wheezing, nonproductive cough, orthopnea She was given a dose of IV Lasix 40 mg, started on DuoNeb's, and supplemental oxygen. Previous echocardiogram in January 2018, it revealed an EF of 35-40%, moderate concentric left ventricular hypertrophy, LV wall motion is hypokinetic, LA severely dilated, mild aortic regurgitation, moderate aortic stenosis, moderate mitral regurgitation, severe tricuspid regurgitation. Lasix switched to Bumex 1 mg twice a day. Repeat echocardiogram ordered , consult cardiology, for her acute on chronic congestive heart failure and aortic stenosis.we will also start him Solu-Medrol 60 every 6 as patient was noted to be short of breath and wheezy on examination 02/17patient has significant shortness of breath today, especially with just conversation, patient also has dyspnea and exertion, she has 2+ edema today, currently on IV Bumex, she has some wheezing, patient has chronic cough, intermittently she also has some coughing episodes when she eats, modified b arium swallow eval is requested, she is currently on IV Solu Medrol 60 mg every 6 hours, Bumex 1 mg twice a day, he would start albuterol when necessary, chest x-ray shows moderate cardiomegaly with pleural effusion, no obvious heart failure, improvement of pulmonary vascularityoncology has evaluated her, in in thrombocytopenia is a possibility, LDH requested, platelet count current 57 aspirin is allowedper oncology Objective - Vital Signs Vital signs: Vital Signs Temp 97.6 F 02/16/19 20:00 Pulse 60 02/17/19 08:10 Resp 18 02/17/19 08:10 BP 166/67 02/17/19 08:10 Pulse Ox 99 02/17/19 08:10 Intake & Output 02/16/19 02/17/19 02/17/19 18:59 06:59 18:59 Intake Total 240 120 250 Output Total 300 Balance -60 120 250 Weight 89 kg Intake: Oral 240 120 250 Output: Urine 300 Other: Voiding Method Toilet Toilet - Constitutional General appearance: Present: cooperative, morbidly obese - EENT Eyes: Present: anicteric sclerae, PERRLA, dentition normal, normal appearance ENT: Present: hearing grossly normal, normal oropharynx - Respiratory Respiratory: bilateral: CTA, negative: diminished, dullness, rales, rhonchi - Cardiovascular Rhythm: regular Heart sounds: normal: S1, S2 Abnormal Heart Sounds: Absent: systolic murmur, diastolic murmur, rub, S3 Gallop, S4 Gallop, click, other - Gastrointestinal General gastrointestinal: Present: normal bowel sounds, soft - Integumentary Integumentary: Present: decreased turgor, normal - Neurologic Neurologic: Present: CNII-XII intact - Musculoskeletal Musculoskeletal: Present: generalized weakness, strength equal bilaterally - Psychiatric Psychiatric: Present: A&O x's 3, appropriate affect - Labs CBC & Chem 7: 02/17/19 06:25 02/17/19 06:25 Labs: Abnormal Lab Results - Last 24 Hours (Table) 02/16/19 02/16/19 02/16/19 Range/Units 05:46 11:43 16:52 RDW (11.5-15.5) % Plt Count (150-450) k/uL Neutrophils # (1.3-7.7) k/uL Lymphocytes # (1.0-4.8) k/uL Sodium (137-145) mmol/L Potassium (3.5-5.1) mmol/L Chloride (98-107) mmol/L BUN (7-17) mg/dL Creatinine (0.52-1.04) mg/dL Glucose (74-99) mg/dL POC Glucose (mg/dL) 218 H 157 H (75-99) mg/dL AST (14-36) U/L RBC Folate 1,034 H (280 - 791) ng/mL 02/16/19 02/17/19 02/17/19 Range/Units 20:12 06:14 06:25 RDW 15.8 H (11.5-15.5) % Plt Count 61 L (150-450) k/uL Neutrophils # 8.6 H (1.3-7.7) k/uL Lymphocytes # 0.4 L (1.0-4.8) k/uL Sodium (137-145) mmol/L Potassium (3.5-5.1) mmol/L Chloride (98-107) mmol/L BUN (7-17) mg/dL Creatinine (0.52-1.04) mg/dL Glucose (74-99) mg/dL POC Glucose (mg/dL) 152 H 177 H (75-99) mg/dL AST (14-36) U/L RBC Folate (280 - 791) ng/mL 02/17/19 Range/Units 06:25 RDW (11.5-15.5) % Plt Count (150-450) k/uL Neutrophils # (1.3-7.7) k/uL Lymphocytes # (1.0-4.8) k/uL Sodium 136 L (137-145) mmol/L Potassium 5.2 H (3.5-5.1) mmol/L Chloride 97 L (98-107) mmol/L BUN 71 H (7-17) mg/dL Creatinine 2.28 H (0.52-1.04) mg/dL Glucose 152 H (74-99) mg/dL POC Glucose (mg/dL) (75-99) mg/dL AST 74 H (14-36) U/L RBC Folate (280 - 791) ng/mL Assessment and Plan Plan: 1. Acute respiratory failure secondary to acute on chronic systolic congestive heart failure and aortic stenosis.echo from January 2018 suggest EF for 35-40% repeat echo currently shows atrial fibrillation paced rhythm, EF 30-35%, severe global hypokinesis, moderate LVH moderate MR and mild to moderate MS, severe tricuspid regurgitation moderate aortic valve sclerosis moderate aortic stenosis , mild pulmonary hypertension. continuepatient onBumex IV every 12 hours, continue her on her Imdur 60 mg, hydralazine 25mg 3 times a day,hold Zaroxolyn 2.5 mg daily and metoprolol 100 mg daily. Cardiology consulted, add nebulized albuterol Atrovent for bronchospasms, check for IgEhowever patient is already started on prednisone on admission 2. Symptomatic aortic stenosis. Cardiology on consult, will resume meds as discussed in #1 3. acute COPD exacerbationrecurrent cough, suspected aspiration pneumonia with coughing episodes in telemetry during 18, Continue with supplemental oxygen, DuoNeb's, Solu-Medrol 60 IV every 6, continue Symbicort 2 puffs twice a day 4. Chronic kidney disease stage IV. Creatinine from January 2017 was 1.5, this seems to be baseline, will continue to monitor BUN and creatinine 5. Coronary artery disease status post coronary artery bypass graft in 2002, continue metoprolol, aspirin, atorvastatin, and Imdur 6. Ischemic cardiomyopathy with an ejection fraction of 35-40% with pacemaker, , hydralazine, Imdur metoprolol, aspirin, and atorvastatin, cardiology on consult.Bumex 1 mg IV twice a day I&O's daily weights patient may benefit from interest on discharge if EF low 7. Restless leg syndrome. Continue Requip 1 mg twice a day as needed 8. recent cataract surgery stable 9. Thrombocytopenia. We'll continue to monitor CBC 10. DVT prophylaxis.hold anticoagulation SCDs 11. GI prophylaxis. Pepcid chronic hypoxemic Restoril failure, on O2 3 L at home, CODE STATUS full code disposition patient needed at least 1-2 inpatient nights for stabilization
[2019-02-17] MEDS: ATORVASTATIN 10 MG TAB PO SCH (20:05)
[2019-02-17 20:25] LABS: Glucose,Whole Blood 206 mg/dL (75-99)
[2019-02-18] MEDS: methylPREDNISolone SOD SUCCI 125 MG/2 ML VIAL IV SCH ×4 (06:06→22:08)
[2019-02-18] MEDS: PANTOPRAZOLE 40 MG TABLET PO SCH (06:16)
[2019-02-18 06:24] LABS: Glucose,Whole Blood 171 mg/dL (75-99)
[2019-02-18] MEDS: INSULIN ASPART (NovoLOG) 100 UNIT/ML VIAL SQ SCH ×4 (06:35→20:55)
[2019-02-18] MEDS: ALLOPURINOL 100 MG TAB PO SCH ×2 (08:19→19:56)
[2019-02-18] MEDS: hydrALAZINE HCL 25 MG TAB PO SCH ×3 (08:19→19:55)
[2019-02-18] MEDS: ALPRAZolam 0.25 MG TAB PO PRN ×2 (08:19→12:48)
[2019-02-18] MEDS: CALCITRIOL 0.25 MCG CAP PO SCH (08:19)
[2019-02-18] MEDS: ISOSORBIDE MONONITRATE ER 60 MG TAB.ER.24H PO SCH (08:19)
[2019-02-18] MEDS: METOPROLOL SUCCINATE (ER) 100 MG TAB.ER.24H PO SCH (08:19)
[2019-02-18] MEDS: BUMETANIDE 0.25 MG/ML 4 ML VIAL IVP SCH ×2 (08:20→22:07)
[2019-02-18 11:14] LABS: Calcium 10.2 mg/dL (8.4-10.2)
[2019-02-18] MEDS: IPRATROPIUM-ALBUTEROL 3 ML NEB INHALATION SCH ×3 (11:29→21:11)
[2019-02-18 11:48] LABS: Potassium 6.1 mmol/L (3.5-5.1)
[2019-02-18 12:04] LABS: Glucose,Whole Blood 201 mg/dL (75-99)
[2019-02-18] MEDS ORDERED: SODIUM POLYSTYRENE SULFONATE 15 GM/60 ML BOTTLE PO STA (14:14)
--- NOTE | 2019-02-18 14:22 | P.PN ---
Subjective Progress Note Date: 02/18/19 This is an 88-year-old female one of Dr. Cade patient's, she has a past medical history of chronic kidney disease stage IV, COPD, oxygen dependent on 2- 3 Lmostly at night, hypertension, restless leg syndrome, history of coronary artery disease, and prior coronary artery bypass 5 in 2002, pacemaker in 2009,generator change in 01/2017,2 diabetes, hypertension and dyslipidemia. patient comes in today with worsening shortness of breath for the past 1 week. Patient is always short of breath but for the past 1 week she has noticed increased shortness of breath at rest. She had a cataract surgery done on Sunday and was asked to follow with the primary care physician since there was no improvement in symptoms patient decided to come to the ER. She endorses shortness of breath associated with wheezing, nonproductive cough, orthopnea She was given a dose of IV Lasix 40 mg, started on DuoNeb's, and supplemental oxygen. Previous echocardiogram in January 2018, it revealed an EF of 35-40%, moderate concentric left ventricular hypertrophy, LV wall motion is hypokinetic, LA severely dilated, mild aortic regurgitation, moderate aortic stenosis, moderate mitral regurgitation, severe tricuspid regurgitation. Lasix switched to Bumex 1 mg twice a day. Repeat echocardiogram ordered , consult cardiology, for her acute on chronic congestive heart failure and aortic stenosis.we will also start him Solu-Medrol 60 every 6 as patient was noted to be short of breath and wheezy on examination 02/17patient has significant shortness of breath today, especially with just conversation, patient also has dyspnea and exertion, she has 2+ edema today, currently on IV Bumex, she has some wheezing, patient has chronic cough, intermittently she also has some coughing episodes when she eats, modified b arium swallow eval is requested, she is currently on IV Solu Medrol 60 mg every 6 hours, Bumex 1 mg twice a day, he would start albuterol when necessary, chest x-ray shows moderate cardiomegaly with pleural effusion, no obvious heart failure, improvement of pulmonary vascularityoncology has evaluated her, in in thrombocytopenia is a possibility, LDH requested, platelet count current 57 aspirin is allowedper oncology Objective - Vital Signs Vital signs: Vital Signs Temp 98.8 F 02/18/19 04:00 Pulse 60 02/18/19 12:00 Resp 16 02/18/19 12:00 BP 144/65 02/18/19 12:00 Pulse Ox 99 02/18/19 12:00 Intake & Output 02/17/19 02/18/19 02/18/19 18:59 06:59 18:59 Intake Total 736 Output Total 600 Balance 136 Weight 89.6 kg Intake: Oral 736 Output: Urine 600 Other: Voiding Method Toilet Toilet # Voids 3 - Constitutional General appearance: Present: cooperative, mild distress - EENT Eyes: Present: anicteric sclerae, PERRLA, dentition normal ENT: Present: hearing grossly normal, normal oropharynx - Neck Neck: Present: normal ROM - Respiratory Respiratory: bilateral: CTA, diminished, prolonged expiration, prolonged inspiration, negative: wheezing - Cardiovascular Rhythm: irregularly irregular Heart sounds: normal: S1, S2 Abnormal Heart Sounds: Present: systolic murmur - Gastrointestinal General gastrointestinal: Present: normal bowel sounds, soft - Integumentary Integumentary: Present: normal, normal turgor - Neurologic Neurologic: Present: CNII-XII intact - Musculoskeletal Musculoskeletal: Present: generalized weakness, strength equal bilaterally - Psychiatric Psychiatric: Present: A&O x's 3, appropriate affect, intact judgment & insight - Labs CBC & Chem 7: 02/17/19 06:25 02/18/19 06:05 Labs: Abnormal Lab Results - Last 24 Hours (Table) 02/17/19 02/17/19 02/18/19 Range/Units 17:00 20:24 06:05 Sodium 135 L (137-145) mmol/L Potassium 6.1 H* (3.5-5.1) mmol/L BUN 84 H (7-17) mg/dL Creatinine 2.42 H (0.52-1.04) mg/dL Glucose 166 H (74-99) mg/dL POC Glucose (mg/dL) 200 H 206 H (75-99) mg/dL 02/18/19 02/18/19 Range/Units 06:24 11:57 Sodium (137-145) mmol/L Potassium (3.5-5.1) mmol/L BUN (7-17) mg/dL Creatinine (0.52-1.04) mg/dL Glucose (74-99) mg/dL POC Glucose (mg/dL) 171 H 201 H (75-99) mg/dL Assessment and Plan Plan: 1. Acute respiratory failure secondary to acute on chronic systolic congestive heart failure and aortic stenosis.echo from January 2018 suggest EF for 35-40% repeat echo currently shows atrial fibrillation paced rhythm, EF 30-35%, severe global hypokinesis, moderate LVH moderate MR and mild to moderate MS, severe tricuspid regurgitation moderate aortic valve sclerosis moderate aortic stenosis , mild pulmonary hypertension. continuepatient onBumex IV every 12 hours, continue her on her Imdur 60 mg, hydralazine 25mg 3 times a day,hold Zaroxolyn 2.5 mg daily and metoprolol 100 mg daily. Cardiology consulted, add nebulized albuterol Atrovent for bronchospasms, check for IgEhowever patient is already started on Solu-Medrol on admission , cannot rule out pulmonary emboli, unable to do contrast studies, evaluate with d-dimer thereafter if positive, will need VQ scan, consult with pulmonary Dr. Maya, for bilateral small pleural effusion, mighty thoracic ultrasound. Patient currently is on O2 nasal cannula 3 L 2. Symptomatic aortic stenosis. Cardiology on consult, will resume meds as discussed in #1 3. acute COPD exacerbation recurrent cough, suspected aspiration pneumonia with coughing episodes during eating, Continue with supplemental oxygen, DuoNeb's, Solu-Medrol 60 IV every 6, continue Symbicort 2 puffs twice a day 4. Chronic kidney disease stage IV. Creatinine from January 2017 was 1.5, thi s seems to be baseline, will continue to monitor BUN and creatinine him a has slightly worsening creatinine with Bumex, nephrology is following closely, 5. Hyperkalemia, not on any potassium supplementation, not on any spironolactone, possibly related to CK D, continue Bumex, add Kayexalate 1 dose 5. Coronary artery disease status post coronary artery bypass graft in 2002, continue metoprolol, aspirin, atorvastatin, and Imdur 6. Ischemic cardiomyopathy with an ejection fraction of 35-40% with pacemaker, , hydralazine, Imdur metoprolol, aspirin, and atorvastatin, cardiology on consult.Bumex 1 mg IV twice a day I&O's daily weights patient may benefit from interest on discharge if EF low 7. Restless leg syndrome. Continue Requip 1 mg twice a day as needed 8. recent cataract surgery stable 9. Thrombocytopenia. We'll continue to monitor CBC 10. DVT prophylaxis.hold anticoagulation SCDs 11. GI prophylaxis. Pepcid chronic hypoxemic Restoril failure, on O2 3 L at home, CODE STATUS full code disposition patient needed at least 1-2 inpatient nights for stabilization
--- NOTE | 2019-02-18 14:47 | P.PN ---
Subjective Progress Note Date: 02/18/19 Principal diagnosis: Pt is seen for f/u for ZACHARY. She is c/o sob. Maintained on IV bumex. Also on steroids . CXR shows no significant pulmonary edema. Updraft RX ordered. K was 6.1 today. S/p kayexalate. Objective - Vital Signs Vital signs: Vital Signs Temp 98.8 F 02/18/19 04:00 Pulse 60 02/18/19 12:00 Resp 16 02/18/19 12:00 BP 144/65 02/18/19 12:00 Pulse Ox 99 02/18/19 12:00 Intake & Output 02/17/19 02/18/19 02/18/19 18:59 06:59 18:59 Intake Total 736 Output Total 600 Balance 136 Weight 89.6 kg Intake: Oral 736 Output: Urine 600 Other: Voiding Method Toilet Toilet # Voids 3 - Constitutional General appearance: Present: cooperative, mild distress - EENT Eyes: Present: PERRLA, normal appearance - Respiratory Respiratory: bilateral: wheezing (mild scattered bilat.) - Cardiovascular Heart sounds: normal: S1, S2 - Gastrointestinal General gastrointestinal: Present: distended, normal bowel sounds, soft - Integumentary Integumentary Comment(s): chronic skin changes. - Neurologic Neurologic Comment(s): METAL MOULDER grossly intact. - Labs CBC & Chem 7: 02/17/19 06:25 02/18/19 06:05 Labs: Abnormal Lab Results - Last 24 Hours (Table) 02/17/19 02/17/19 02/18/19 Range/Units 17:00 20:24 06:05 Sodium 135 L (137-145) mmol/L Potassium 6.1 H* (3.5-5.1) mmol/L BUN 84 H (7-17) mg/dL Creatinine 2.42 H (0.52-1.04) mg/dL Glucose 166 H (74-99) mg/dL POC Glucose (mg/dL) 200 H 206 H (75-99) mg/dL 02/18/19 02/18/19 Range/Units 06:24 11:57 Sodium (137-145) mmol/L Potassium (3.5-5.1) mmol/L BUN (7-17) mg/dL Creatinine (0.52-1.04) mg/dL Glucose (74-99) mg/dL POC Glucose (mg/dL) 171 H 201 H (75-99) mg/dL Assessment and Plan Assessment: 1. ZACHARY, cardiorenal, on IV bumex, continue for now 2. CKD stage 3, baseline cr around 1.5 3. Dyspnea sec to COPD nad an element of CHF. Continue IV bumex and add updraft Rx 4. Hyperkalemia sec to renal failure. No GI bleed noted. S/p kayexalate. Repeat K later this evening.R/o urine retention. PLAN Check post void residual Repeat K this evening. Control blood sugars. Continue IV bumex Add up draft Rx Continue steroids for now.
--- NOTE | 2019-02-18 15:19 | CT ---
EXAMINATION TYPE: CT chest wo con DATE OF EXAM: 02/18/2019 COMPARISON: HISTORY: SOB, pulmonary fibrosis. Pt not able to raise arms. CT DLP: 812.6 mGycm Automated exposure control for dose reduction was used. Multiple axial sections were obtained from the thoracic inlet to the diaphragm without contrast. FINDINGS: Heart is moderately enlarged. There are mild bilateral pleural effusions. There is no pericardial eff usion. Thoracic aorta is atheromatous. There is extensive atherosclerotic vascular calcification. Asc ending aorta measures 3.6 cm. There is dense coronary artery calcification. There is mild patchy atel ectasis at the lung bases. There is evidence of mild abdominal ascites. There is ventral hernia in th e upper abdomen that contains ascites fluid and measures 2.7 cm. There is no mediastinal adenopathy. There are no hilar masses. There is no evidence of a pulmonary mass. There is some spurring in the thoracic spine. I see no bony destructive process. There is mild thorac olumbar dextroscoliosis. IMPRESSION: Moderately severe cardiomegaly. Mild pleural effusions and basilar mild atelectasis and scarring. Thi s probably relates to mild chronic heart failure. I do not see a pattern of any significant interstitial lung disease.
--- NOTE | 2019-02-18 15:39 | P.CNPUL ---
History of Present Illness Consult date: 02/18/19 Requesting physician: Judy Kay Reason for consult: dyspnea, abnormal CXR/CT (Small bilateral pleural effusion) Chief complaint: Shortness of breath, increased lower extremity swelling History of present illness: This is a very pleasant 88-year-old female patient who follows with Dr. Vargas as her primary care physician. She has a history of coronary artery disease with previous coronary artery bypass grafting 5 in 2002, sick sinus syndrome with pacemaker implantation, hyperlipidemia, hypertension, diabetes mellitus, depression. She is a lifelong nonsmoker. She presented here to the emergency room back on 02/14/2019 with complaints of increasing shortness of breath and lower extremity swelling. Echocardiogram revealed moderate to severely impaired left ventricular systolic function with ejection fraction 30-35%. There is moderate to severe aortic sclerosis with moderate aortic stenosis and mild to moderate mitral stenosis. No significant pulmonary hypertension. She been initiated on IV Bumex and is improving gradually. She is seen today in consultation on the selective care unit after she had a computed tomography scan of the chest done that showed some small pleural effusions. She is maintaining O2 saturations at 99% on 3 L/m per nasal cannula. Sodium 135. Potassium 6.1. Bicarb 25. Creatinine 2.42. Troponin 0.039. 0.041. ProBNP 21,700. White count 9.2. Hemoglobin 12.6. Review of Systems REVIEW OF SYSTEMS: CONSTITUTIONAL: Positive for significant weight gain. EYES: Denies change in vision. EARS, NOSE, MOUTH, THROAT: Denies headaches, denies sore throat. CARDIOVASCULAR: Denies chest pain, palpitations or syncopal episodes. RESPIRATORY: Positive for shortness of breath, no cough, congestion or hemoptysis. GASTROINTESTINAL: Denies change in appetite, denies abdominal pain GENITOURINARY: Denies hematuria, denies infections. MUSKULOSKELETAL: Positive for pain, positive for swelling. INTEGUMENTARY: Denies rash, denies eczema. NEUROLOGICAL: Denies recent memory loss, no recent seizure activity. PSYCHIATRIC: Denies anxiety, denies depression. HEMATOLOGIC/LYMPHATIC: Denies anemia, denies enlarged lymph nodes. Past Medical History Past Medical History: Coronary Artery Disease (CAD), Heart Failure, COPD, Diabetes Mellitus, GERD/Reflux, Hyperlipidemia, Hypertension, Renal Disease Additional Past Medical History / Comment(s): RLS, "borderline diabetes", CKD stage IV, anemia, hypocalcemia in past, "leaky heart valve",SSS with pacer, gout R foot, cataract R eye, chronic low back pain. aortic stenosis, cataract History of Any Multi-Drug Resistant Organisms: None Reported Past Surgical History: Back Surgery, Cholecystectomy, Coronary Bypass/CABG, Heart Catheterization, Hysterectomy, Joint Replacement, Orthopedic Surgery Additional Past Surgical History / Comment(s): 5 vessel Cabg 2002, 02/2009 Pacemaker, R total shoulder, back discectomy, R knee arthroscopy, EGD/colono scopy, L cataract removal. Past Anesthesia/Blood Transfusion Reactions: No Reported Reaction Additional Past Anesthesia/Blood Transfusion Reaction / Comment(s): Pt has clausterphobia. Type of Cardiac Device: Permanent Pacemaker Device Placement Date:: gen change 02/11 Past Psychological History: Depression Smoking Status: Never smoker Past Alcohol Use History: None Reported Past Drug Use History: None Reported - Past Family History Father Family Medical History: COPD, Diabetes Mellitus Additional Family Medical History / Comment(s): Father developed diabetes and heart disease later in life. He lived to be 97yrs old. Mother Family Medical History: COPD, Diabetes Mellitus Additional Family Medical History / Comment(s): Mother had heart disease. She lived to be 70yrs old. Medications and Allergies Home Medications Medication Instructions Recorded Confirmed Type Acetaminophen Tab [Tylenol] 500 mg PO Q4H PRN 01/26/17 02/14/19 History Albuterol Nebulized [Ventolin 2.5 mg INHALATION RT-TID 01/26/17 02/14/19 History Nebulized] Budesonide/Formoterol Fumarate 2 puff INHALATION RT-BID PRN 01/26/17 02/14/19 History [Symbicort 160-4.5 Mcg Inhaler] Bumetanide [BUMEX] 3 mg PO DAILY 01/26/17 02/14/19 History Calcitriol [Rocaltrol] 0.25 mcg PO DAILY 01/26/17 02/14/19 History Cinnamon Bark [Cinnamon] 500 mg PO DAILY 01/26/17 02/14/19 History Fish Oil/Dha/Epa [Fish Oil 1,200 1 cap PO DAILY 01/26/17 02/14/19 History mg Fish Oil] Fluticasone Nasal [place] [Flonase 2 spray EA NOSTRIL DAILY 01/26/17 02/14/19 History Nasal [place]] Isosorbide Mononitrate ER [Imdur] 60 mg PO DAILY 01/26/17 02/14/19 History Metolazone [Zaroxolyn] 2.5 mg PO DAILY 01/26/17 02/14/19 History Nitroglycerin Sl Tabs [Nitrostat] 0.4 mg SUBLINGUAL Q5M PRN 01/26/17 02/14/19 History Omeprazole [PriLOSEC] 20 mg PO DAILY 01/26/17 02/14/19 History Simvastatin [Zocor] 20 mg PO HS 01/26/17 02/14/19 History hydrALAZINE HCL [Apresoline] 25 mg PO TID 01/26/17 02/14/19 History rOPINIRole HCL [Requip] 1 mg PO BID 01/26/17 02/14/19 History Potassium Chloride Oral Liquid 40 meq PO DAILY 08/19/17 02/14/19 History Metoprolol Succinate (ER) [Toprol 100 mg PO DAILY 09/16/18 02/14/19 History XL] Allopurinol [Zyloprim] 100 mg PO BID 02/14/19 02/14/19 History Allergies Allergy/AdvReac Type Severity Reaction Status Date / Time levofloxacin [From Levaquin] Allergy Nausea & Verified 02/14/19 13:37 Vomiting codeine AdvReac Nausea & Verified 02/14/19 13:37 Vomiting fentanyl AdvReac Nausea & Verified 02/14/19 13:37 Vomiting hydrocodone AdvReac Nausea & Verified 02/14/19 13:37 Vomiting hydromorphone [From Dilaudid] AdvReac Hallucinati Verified 02/14/19 13:37 ons morphine AdvReac Nausea & Verified 02/14/19 13:37 Vomiting pentazocine [From Talwin] AdvReac Nausea & Verified 02/14/19 13:37 Vomiting propoxyphene [From Darvon] AdvReac Nausea & Verified 02/14/19 13:37 Vomiting tramadol AdvReac Nausea & Verified 02/14/19 13:37 Vomiting Physical Exam Vitals: Vital Signs Temp Pulse Pulse Pulse Resp BP BP 02/18/19 12:00 60 16 144/65 02/18/19 11:31 64 02/18/19 08:00 60 60 16 144/67 02/18/19 07:36 02/18/19 04:00 98.8 F 60 60 20 144/60 02/18/19 00:00 60 60 60 H 02/17/19 23:49 98.0 F 60 60 H 148/65 02/17/19 20:00 98 F 60 60 18 172/79 02/17/19 19:20 02/17/19 15:30 97.5 F L 60 73 18 BP Pulse Ox 02/18/19 12:00 99 02/18/19 11:31 02/18/19 08:00 92 L 02/18/19 07:36 97 02/18/19 04:00 95 02/18/19 00:00 02/17/19 23:49 96 02/17/19 20:00 97 02/17/19 19:20 98 02/17/19 15:30 179/77 96 Intake and Output 02/18/19 02/18/19 02/18/19 06:59 14:59 22:59 Other: Voiding Method Toilet Toilet Weight 89.6 kg GENERAL EXAM: Alert, obese pleasant 88-year-old female patient comfortable in no apparent distress. On 3 L nasal cannula. HEAD: Normocephalic. EYES: Normal reaction of pupils, equal size. NOSE: Clear with pink turbinates. THROAT: No erythema or exudates. NECK: No masses, no JVD. CHEST: No chest wall deformity. LUNGS: Equal air entry with crackles in the bilateral posterior bases CVS: S1 and S2 normal with anaudible murmur, regular rhythm. ABDOMEN: No hepatosplenomegaly, normal bowel sounds, no guarding or rigidity. SPINE: No scoliosis or deformity SKIN: No rashes CENTRAL NERVOUS SYSTEM: No focal deficits, tone is normal in all 4 extremities. EXTREMITIES: There is 1-2+ peripheral edema. No clubbing, no cyanosis. Per ipheral pulses are intact. Results - Laboratory Findings CBC and BMP: 02/17/19 06:25 02/18/19 06:05 PT/INR, D-dimer PT 10.9 sec (9.0-12.0) 02/14/19 11:48 INR 1.0 (<1.2) 02/14/19 11:48 Abnormal lab findings: Abnormal Labs 02/14/19 02/14/19 02/14/19 11:48 11:48 11:48 RDW 15.8 H Plt Count 58 L Neutrophils # Lymphocytes # Sodium Potassium Chloride BUN 52 H Creatinine 1.98 H Glucose 101 H POC Glucose (mg/dL) Iron % Saturation Total Bilirubin 1.4 H AST 70 H Troponin I 0.036 H* Total Protein Total Protein (PEP) RBC Folate 02/14/19 02/14/19 02/14/19 18:00 20:53 23:34 RDW Plt Count Neutrophils # Lymphocytes # Sodium Potassium Chloride BUN Creatinine Glucose POC Glucose (mg/dL) 134 H Iron % Saturation Total Bilirubin AST Troponin I 0.038 H* 0.039 H* Total Protein Total Protein (PEP) RBC Folate 02/15/19 02/15/19 02/15/19 03:06 03:06 03:06 RDW 15.7 H Plt Count 57 L Neutrophils # Lymphocytes # 0.4 L Sodium 135 L Potassium Chloride 97 L BUN 49 H Creatinine 1.90 H Glucose 135 H POC Glucose (mg/dL) Iron % Saturation Total Bilirubin AST 67 H Troponin I 0.041 H* Total Protein 6.1 L Total Protein (PEP) RBC Folate 02/15/19 02/15/19 02/15/19 03:06 06:09 12:01 RDW Plt Count Neutrophils # Lymphocytes # Sodium Potassium Chloride BUN Creatinine Glucose POC Glucose (mg/dL) 137 H 210 H Iron 38 L % Saturation 11.45 L Total Bilirubin AST Troponin I Total Protein Total Protein (PEP) RBC Folate 02/15/19 02/15/19 02/16/19 17:04 20:35 05:46 RDW Plt Count Neutrophils # Lymphocytes # Sodium Potassium Chloride BUN Creatinine Glucose POC Glucose (mg/dL) 159 H 196 H Iron % Saturation Total Bilirubin AST Troponin I Total Protein Total Protein (PEP) 6.0 L RBC Folate 02/16/19 02/16/19 02/16/19 05:46 05:46 05:46 RDW 15.7 H Plt Count 65 L Neutrophils # Lymphocytes # 0.5 L Sodium Potassium Chloride BUN 57 H Creatinine 2.04 H Glucose 154 H POC Glucose (mg/dL) Iron % Saturation Total Bilirubin AST 67 H Troponin I Total Protein Total Protein (PEP) RBC Folate 1,034 H 02/16/19 02/16/19 02/16/19 06:14 11:43 16:52 RDW Plt Count Neutrophils # Lymphocytes # Sodium Potassium Chloride BUN Creatinine Glucose POC Glucose (mg/dL) 149 H 218 H 157 H Iron % Saturation Total Bilirubin AST Troponin I Total Protein Total Protein (PEP) RBC Folate 02/16/19 02/17/19 02/17/19 20:12 06:14 06:25 RDW 15.8 H Plt Count 61 L Neutrophils # 8.6 H Lymphocytes # 0.4 L Sodium Potassium Chloride BUN Creatinine Glucose POC Glucose (mg/dL) 152 H 177 H Iron % Saturation Total Bilirubin AST Troponin I Total Protein Total Protein (PEP) RBC Folate 02/17/19 02/17/19 02/17/19 06:25 11:21 17:00 RDW Plt Count Neutrophils # Lymphocytes # Sodium 136 L Potassium 5.2 H Chloride 97 L BUN 71 H Creatinine 2.28 H Glucose 152 H POC Glucose (mg/dL) 165 H 200 H Iron % Saturation Total Bilirubin AST 74 H Troponin I Total Protein Total Protein (PEP) RBC Folate 02/17/19 02/18/19 02/18/19 20:24 06:05 06:24 RDW Plt Count Neutrophils # Lymphocytes # Sodium 135 L Potassium 6.1 H* Chloride BUN 84 H Creatinine 2.42 H Glucose 166 H POC Glucose (mg/dL) 206 H 171 H Iron % Saturation Total Bilirubin AST Troponin I Total Protein Total Protein (PEP) RBC Folate 02/18/19 11:57 RDW Plt Count Neutrophils # Lymphocytes # Sodium Potassium Chloride BUN Creatinine Glucose POC Glucose (mg/dL) 201 H Iron % Saturation Total Bilirubin AST Troponin I Total Protein Total Protein (PEP) RBC Folate - Diagnostic Findings Chest x-ray: image reviewed CT scan - chest: image reviewed Assessment and Plan Assessment: 1 Acute exacerbation of chronic systolic congestive heart failure, ejection fraction 30-35% 2 Acute on chronic hypoxemic respiratory failure secondary to above 3 Acute on chronic kidney disease, stage IV, current creatinine 2.4 to 4 Lifelong nonsmoker 5 Mild pleural effusions with atelectasis in a patient with moderately severe cardiomegaly 6 Coronary artery disease with previous coronary artery bypass grafting 5 7 Hyperkalemia secondary to acute on chronic renal failure 8 Hypertension 9 Hyperlipidemia 10 Osteoarthritis 11 6 sinus syndrome status post permanent pacemaker implantation 12 Moderate aortic stenosis 13 Moderate mitral stenosis Plan: The patient was seen and evaluated by Dr. Cancino, chest x-ray, CAT scan of chest and labs reviewed, no plans for thoracentesis Continue with IV diuretics Discontinue her IV solu Medrol, continue bronchodilators Continue to follow Increase her activity as tolerated Titrate down the FiO2 as tolerated, patient does have home O2 mostly at night I, the cosigning physician, performed a history & physical examination of the patient. Lungs sounds with crackles in the bilateral posterior bases. Maintaining good O2 saturations in the 90s on 3 L/m per nasal cannula. I discussed the assessment and plan of care with my nurse practitioner, Ilana Jenkins. I attest to the above note as dictated by her. Time with Patient: Greater than 30
[2019-02-18 16:53] LABS: Glucose,Whole Blood 192 mg/dL (75-99)
--- NOTE | 2019-02-18 19:08 | P.PN ---
Subjective Progress Note Date: 02/18/19 This 88-year-old female with history of coronary artery disease with previous bypass surgery, sick sinus syndrome with pacemaker implantation, hyperlipidemia, hypertension, diabetes and depression was admitted to the hospital with increasing shortness of breath and lower extremity swelling. Her LV function is severely impaired with ejection fraction 30-35%. Moderate aortic stenosis and mild to moderate mitral stenosis. Patient has been on IV Bumex. Seemed to be gradually improving. However her creatinine is going up and potassium is up. Patient was seen by nephrology. Patient put on Kayexalate. Recommended to continue Bumex at this time. We'll continue current medical therapy. Prognosis is guarded Objective - Vital Signs Vital signs: Vital Signs Temp 98.8 F 02/18/19 04:00 Pulse 64 02/18/19 16:33 Resp 16 02/18/19 16:00 BP 171/74 02/18/19 16:00 Pulse Ox 99 02/18/19 12:00 Intake & Output 02/18/19 02/18/19 02/19/19 06:59 18:59 06:59 Intake Total 240 Output Total 250 Balance -10 Weight 89.6 kg Intake: Oral 240 Output: Urine 250 Straight 250 Other: Voiding Method Toilet Toilet - Exam GENERAL EXAM: Patient is alert and oriented and seemed to feeling slightly better HEENT: Normocephalic. Normal reaction of pupils, equal size, normal range of extraocular motion. No erythema or exudates in the throat. NECK: No masses, no nuchal rigidity. CHEST: No chest wall deformity. LUNGS: Equal air entry with no crackles or wheeze. HEART: S1 and S2 normal with no audible mumurs or gallops. Regular rhythm, femorals equal on both sides.. ABDOMEN: No hepatosplenomegaly, normal bowel sounds, no guarding or rigidity. SKIN: No rashes CENTRAL NERVOUS SYSTEM: No focal deficits. EXTREMITIES: Resolving edema - Labs CBC & Chem 7: 02/17/19 06:25 02/18/19 06:05 Labs: Abnormal Lab Results - Last 24 Hours (Table) 02/17/19 02/18/19 02/18/19 Range/Units 20:24 06:05 06:24 D-Dimer (<0.60) mg/L FEU Sodium 135 L (137-145) mmol/L Potassium 6.1 H* (3.5-5.1) mmol/L BUN 84 H (7-17) mg/dL Creatinine 2.42 H (0.52-1.04) mg/dL Glucose 166 H (74-99) mg/dL POC Glucose (mg/dL) 206 H 171 H (75-99) mg/dL 02/18/19 02/18/19 02/18/19 Range/Units 11:57 15:00 16:47 D-Dimer 1.50 H (<0.60) mg/L FEU Sodium (137-145) mmol/L Potassium (3.5-5.1) mmol/L BUN (7-17) mg/dL Creatinine (0.52-1.04) mg/dL Glucose (74-99) mg/dL POC Glucose (mg/dL) 201 H 192 H (75-99) mg/dL Assessment and Plan (1) Acute on chronic systolic congestive heart failure Current Visit: Yes Status: Acute Code(s): I50.23 - ACUTE ON CHRONIC SYSTOLIC (CONGESTIVE) HEART FAILURE SNOMED Code(s): 907486477 (2) CAD (coronary artery disease) Current Visit: Yes Status: Acute Code(s): I25.10 - ATHSCL HEART DISEASE OF [place] CORONARY ARTERY W/O ANG PCTRS SNOMED Code(s): 09741653 (3) Thrombocytopenia Current Visit: Yes Status: Acute Code(s): D69.6 - THROMBOCYTOPENIA, UNSPECIFIED SNOMED Code(s): 933470524 (4) Cardiomyopathy Current Visit: Yes Status: Acute Code(s): I42.9 - CARDIOMYOPATHY, UNSPECIFIED SNOMED Code(s): 04367037 (5) Acute on chronic renal failure Current Visit: Yes Status: Acute Code(s): N17.9 - ACUTE KIDNEY FAILURE, UNSPECIFIED; N18.9 - CHRONIC KIDNEY DISEASE, UNSPECIFIED SNOMED Code(s): 794806361 (6) History of pacemaker Current Visit: Yes Status: Acute Code(s): Z95.0 - PRESENCE OF CARDIAC PACEMAKER SNOMED Code(s): 892336425 Plan: Continue diuretic therapy as advocated by nephrology. Continue to monitor and correct hyperkalemia. Continue rest of the medication. Prognosis is guarded
[2019-02-18] MEDS: ATORVASTATIN 10 MG TAB PO SCH (19:55)
[2019-02-18 20:32] LABS: Calcium 9.7 mg/dL (8.4-10.2); Potassium 5.5 mmol/L (3.5-5.1)
[2019-02-18 20:39] LABS: Glucose,Whole Blood 154 mg/dL (75-99)
[2019-02-19] MEDS: IPRATROPIUM-ALBUTEROL 3 ML NEB INHALATION SCH ×6 (00:22→20:37)
[2019-02-19 06:11] LABS: Glucose,Whole Blood 165 mg/dL (75-99)
[2019-02-19 06:20] LABS: Basophils % (A) 0 %; Eosinophils % (A) 0 %; HCT 40.5 % (34.0-46.0); HGB 12.7 gm/dL (11.4-16.0); Lymphocytes # (A) 0.2 k/uL (1.0-4.8); Lymphocytes % (A) 4 %; MCH 30.1 pg (25.0-35.0); MCHC 31.3 g/dL (31.0-37.0); MCV 96.1 fL (80.0-100.0); Mean Platelet Volume 10.8; Monocytes # (A) 0.2 k/uL (0-1.0); Monocytes % (A) 4 %; Neutrophils # (A) 6.2 k/uL (1.3-7.7); Neutrophils % (A) 92 %; RBC 4.22 m/uL (3.80-5.40); RDW 15.9 % (11.5-15.5); WBC 6.7 k/uL (3.8-10.6)
[2019-02-19] MEDS: PANTOPRAZOLE 40 MG TABLET PO SCH (06:29)
[2019-02-19] MEDS: methylPREDNISolone SOD SUCCI 125 MG/2 ML VIAL IV SCH ×4 (06:29→22:48)
[2019-02-19] MEDS: INSULIN ASPART (NovoLOG) 100 UNIT/ML VIAL SQ SCH ×4 (06:29→20:57)
[2019-02-19 06:30] LABS: Platelet Count 50 k/uL (150-450)
[2019-02-19 06:44] LABS: Calcium 9.7 mg/dL (8.4-10.2); Potassium 5.3 mmol/L (3.5-5.1)
[2019-02-19] MEDS: SYMBICORT 160-4.5 MCG INHALER INHALATION PRN (07:35)
[2019-02-19] MEDS: ALLOPURINOL 100 MG TAB PO SCH ×2 (09:14→20:57)
[2019-02-19] MEDS: ALPRAZolam 0.25 MG TAB PO PRN (09:14)
[2019-02-19] MEDS: CALCITRIOL 0.25 MCG CAP PO SCH (09:14)
[2019-02-19] MEDS: ISOSORBIDE MONONITRATE ER 60 MG TAB.ER.24H PO SCH (09:14)
[2019-02-19] MEDS: METOPROLOL SUCCINATE (ER) 100 MG TAB.ER.24H PO SCH (09:14)
[2019-02-19] MEDS: hydrALAZINE HCL 25 MG TAB PO SCH ×3 (09:14→22:48)
[2019-02-19] MEDS: BUMETANIDE 0.25 MG/ML 4 ML VIAL IVP SCH ×2 (09:15→20:58)
--- NOTE | 2019-02-19 11:15 | P.PN ---
Subjective Progress Note Date: 02/19/19 Principal diagnosis: Acute exacerbation of chronic systolic congestive heart failure with acute on chronic hypoxemic respiratory failure This is a very pleasant 88-year-old female patient who follows with Dr. Vargas as her primary care physician. She has a history of coronary artery disease with previous coronary artery bypass grafting 5 in 2002, sick sinus syndrome with pacemaker implantation, hyperlipidemia, hypertension, diabetes mellitus, depression. She is a lifelong nonsmoker. She presented here to the emergency room back on 02/14/2019 with complaints of increasing shortness of breath and lower extremity swelling. Echocardiogram revealed moderate to severely impaired left ventricular systolic function with ejection fraction 30-35%. There is moderate to severe aortic sclerosis with moderate aortic stenosis and mild to moderate mitral stenosis. No significant pulmonary hypertension. She been initiated on IV Bumex and is improving gradually. She is seen today in consultation on the selective care unit after she had a computed tomography scan of the chest done that showed some small pleural effusions. She is maintaining O2 saturations at 99% on 3 L/m per nasal cannula. Sodium 135. Potassium 6.1. Bicarb 25. Creatinine 2.42. Troponin 0.039. 0.041. ProBNP 21,700. White count 9.2. Hemoglobin 12.6. The patient is seen today 02/19/2018 in follow-up on the selective care unit. She is currently resting comfortably in bed. Awake and alert in no acute distress.maintaining O2 saturations in the upper 90s on 3 L/m per nasal cannula. Still somewhat dyspneic with minimal exertion. She is diuresing well. Down 2 kg today. white count 6.7. Hemoglobin 12.7. Creatinine 2.44. She is continued on DuoNeb inhalations, Symbicort, IV Solu-Medrol, IV diuretics. Objective - Vital Signs Vital signs: Vital Signs Temp 98.2 F 02/19/19 04:00 Pulse 59 L 02/19/19 08:00 Resp 16 02/19/19 08:00 BP 170/71 02/19/19 08:00 Pulse Ox 98 02/19/19 08:00 Intake & Output 02/18/19 02/19/19 02/19/19 18:59 06:59 18:59 Intake Total 240 240 250 Output Total 250 300 Balance -10 -60 250 Weight 87.2 kg Intake: Oral 240 240 250 Output: Urine 250 300 Straight 250 Other: Voiding Method Toilet Toilet Toilet - Exam GENERAL EXAM: Alert, obese pleasant 88-year-old female patient comfortable in no apparent distress. On 3 L nasal cannula. HEAD: Normocephalic. EYES: Normal reaction of pupils, equal size. NOSE: Clear with pink turbinates. THROAT: No erythema or exudates. NECK: No masses, no JVD. CHEST: No chest wall deformity. LUNGS: Equal air entry with crackles in the bilateral posterior bases, end expiratory wheeze CVS: S1 and S2 normal with anaudible murmur, regular rhythm. ABDOMEN: No hepatosplenomegaly, normal bowel sounds, no guarding or rigidity. SPINE: No scoliosis or deformity SKIN: No rashes CENTRAL NERVOUS SYSTEM: No focal deficits, tone is normal in all 4 extremities. EXTREMITIES: There is 1-2+ peripheral edema. No clubbing, no cyanosis. Peripheral pulses are intact. - Labs CBC & Chem 7: 02/19/19 05:16 02/19/19 05:16 Labs: Abnormal Lab Results - Last 24 Hours (Table) 02/18/19 02/18/19 02/18/19 Range/Units 06:05 11:57 15:00 RDW (11.5-15.5) % Plt Count (150-450) k/uL Lymphocytes # (1.0-4.8) k/uL D-Dimer 1.50 H (<0.60) mg/L FEU Sodium 135 L (137-145) mmol/L Potassium 6.1 H* (3.5-5.1) mmol/L Chloride (98-107) mmol/L BUN 84 H (7-17) mg/dL Creatinine 2.42 H (0.52-1.04) mg/dL Glucose 166 H (74-99) mg/dL POC Glucose (mg/dL) 201 H (75-99) mg/dL 02/18/19 02/18/19 02/18/19 Range/Units 16:47 20:08 20:38 RDW (11.5-15.5) % Plt Count (150-450) k/uL Lymphocytes # (1.0-4.8) k/uL D-Dimer (<0.60) mg/L FEU Sodium 133 L (137-145) mmol/L Potassium 5.5 H (3.5-5.1) mmol/L Chloride (98-107) mmol/L BUN 90 H (7-17) mg/dL Creatinine 2.32 H (0.52-1.04) mg/dL Glucose 152 H (74-99) mg/dL POC Glucose (mg/dL) 192 H 154 H (75-99) mg/dL 02/19/19 02/19/19 02/19/19 Range/Units 05:16 05:16 06:09 RDW 15.9 H (11.5-15.5) % Plt Count 50 L (150-450) k/uL Lymphocytes # 0.2 L (1.0-4.8) k/uL D-Dimer (<0.60) mg/L FEU Sodium 135 L (137-145) mmol/L Potassium 5.3 H (3.5-5.1) mmol/L Chloride 97 L (98-107) mmol/L BUN 95 H (7-17) mg/dL Creatinine 2.44 H (0.52-1.04) mg/dL Glucose 156 H (74-99) mg/dL POC Glucose (mg/dL) 165 H (75-99) mg/dL Assessment and Plan Assessment: 1 Acute exacerbation of chronic systolic congestive heart failure, ejection fraction 30-35% 2 Acute on chronic hypoxemic respiratory failure secondary to above 3 Acute on chronic kidney disease, stage IV, current creatinine 2.44 4 Lifelong nonsmoker 5 Mild pleural effusions with atelectasis in a patient with moderately severe cardiomegaly 6 Coronary artery disease with previous coronary artery bypass grafting 5 7 Hyperkalemia secondary to acute on chronic renal failure 8 Hypertension 9 Hyperlipidemia 10 Osteoarthritis 11 Sick sinus syndrome status post permanent pacemaker implantation 12 Moderate aortic stenosis 13 Moderate mitral stenosis Plan: The patient was seen and evaluated by Dr. Cancino Continue with IV diuretics, Bumex increased per nephrology Continue bronchodilators and steroids Continue to follow Increase her activity as tolerated Titrate down the FiO2 as tolerated, patient does have home O2 mostly at night I, the cosigning physician, performed a history & physical examination of the patient. Lungs sounds with crackles in the bilateral posterior bases, end expiratory wheeze. Maintaining good O2 saturations in the 90s on 3 L/m per nasal cannula. I discussed the assessment and plan of care with my nurse practitioner, Ilana Jenkins. I attest to the above note as dictated by her.
[2019-02-19 11:31] LABS: Glucose,Whole Blood 224 mg/dL (75-99)
--- NOTE | 2019-02-19 14:11 | P.PN ---
Subjective Progress Note Date: 02/19/19 This 88-year-old female with history of coronary artery disease with previous bypass surgery, sick sinus syndrome with pacemaker implantation, hyperlipidemia, hypertension, diabetes and depression was admitted to the hospital with increasing shortness of breath and lower extremity swelling. Her LV function is severely impaired with ejection fraction 30-35%. Moderate aortic stenosis and mild to moderate mitral stenosis. Patient has been on IV Bumex. Seemed to be gradually improving. However her creatinine is going up and potassium is up. Patient was seen by nephrology. Patient put on Kayexalate. Recommended to continue Bumex at this time. We'll continue current medical therapy. Prognosis is guarded here. 02/19/2019: This patient with history of previous bypass surgery, sick sinus syndrome, hyperlipidemia and hypertension admitted with to the hospital with increasing edema and shortness of breath. Patient is still complaining of shortness of breath and seemed to have expiratory wheezes. Her potassium was high but came down with Late. Patient's dose of Bumex was increased by neph rology. Lungs show expiratory wheezes. Heart sounds are distant. Patient will continue current medical therapy. We'll follow BMP Objective - Vital Signs Vital signs: Vital Signs Temp 98.2 F 02/19/19 04:00 Pulse 63 02/19/19 12:00 Resp 16 02/19/19 12:00 BP 166/74 02/19/19 12:00 Pulse Ox 95 02/19/19 12:00 Intake & Output 02/18/19 02/19/19 02/19/19 18:59 06:59 18:59 Intake Total 240 240 472 Output Total 250 300 Balance - 472 Weight 87.2 kg Intake: Oral 240 240 472 Output: Urine 250 300 Straight 250 Other: Voiding Method Toilet Toilet Toilet - Exam GENERAL EXAM: Patient is alert and oriented and seemed to feeling slightly better HEENT: Normocephalic. Normal reaction of pupils, equal size, normal range of extraocular motion. No erythema or exudates in the throat. NECK: No masses, no nuchal rigidity. CHEST: No chest wall deformity. LUNGS: Equal air entry with no crackles or wheeze. HEART: S1 and S2 normal with no audible mumurs or gallops. Regular rhythm, femorals equal on both sides.. ABDOMEN: No hepatosplenomegaly, normal bowel sounds, no guarding or rigidity. SKIN: No rashes CENTRAL NERVOUS SYSTEM: No focal deficits. EXTREMITIES: Resolving edema - Labs CBC & Chem 7: 02/19/19 05:16 02/19/19 05:16 Labs: Abnormal Lab Results - Last 24 Hours (Table) 02/18/19 02/18/19 02/18/19 Range/Units 15:00 16:47 20:08 RDW (11.5-15.5) % Plt Count (150-450) k/uL Lymphocytes # (1.0-4.8) k/uL D-Dimer 1.50 H (<0.60) mg/L FEU Sodium 133 L (137-145) mmol/L Potassium 5.5 H (3.5-5.1) mmol/L Chloride (98-107) mmol/L BUN 90 H (7-17) mg/dL Creatinine 2.32 H (0.52-1.04) mg/dL Glucose 152 H (74-99) mg/dL POC Glucose (mg/dL) 192 H (75-99) mg/dL 02/18/19 02/19/19 02/19/19 Range/Units 20:38 05:16 05:16 RDW 15.9 H (11.5-15.5) % Plt Count 50 L (150-450) k/uL Lymphocytes # 0.2 L (1.0-4.8) k/uL D-Dimer (<0.60) mg/L FEU Sodium 135 L (137-145) mmol/L Potassium 5.3 H (3.5-5.1) mmol/L Chloride 97 L (98-107) mmol/L BUN 95 H (7-17) mg/dL Creatinine 2.44 H (0.52-1.04) mg/dL Glucose 156 H (74-99) mg/dL POC Glucose (mg/dL) 154 H (75-99) mg/dL 02/19/19 02/19/19 Range/Units 06:09 11:30 RDW (11.5-15.5) % Plt Count (150-450) k/uL Lymphocytes # (1.0-4.8) k/uL D-Dimer (<0.60) mg/L FEU Sodium (137-145) mmol/L Potassium (3.5-5.1) mmol/L Chloride (98-107) mmol/L BUN (7-17) mg/dL Creatinine (0.52-1.04) mg/dL Glucose (74-99) mg/dL POC Glucose (mg/dL) 165 H 224 H (75-99) mg/dL Assessment and Plan (1) Acute on chronic systolic congestive heart failure Current Visit: Yes Status: Acute Code(s): I50.23 - ACUTE ON CHRONIC SYSTOLIC (CONGESTIVE) HEART FAILURE SNOMED Code(s): 611024360 (2) CAD (coronary artery disease) Current Visit: Yes Status: Acute Code(s): I25.10 - ATHSCL HEART DISEASE OF [place] CORONARY ARTERY W/O ANG PCTRS SNOMED Code(s): 90313615 (3) Thrombocytopenia Current Visit: Yes Status: Acute Code(s): D69.6 - THROMBOCYTOPENIA, UNSPECIFIED SNOMED Code(s): 990642817 (4) Cardiomyopathy Current Visit: Yes Status: Acute Code(s): I42.9 - CARDIOMYOPATHY, UNSPECIFIED SNOMED Code(s): 77370274 (5) Acute on chronic renal failure Current Visit: Yes Status: Acute Code(s): N17.9 - ACUTE KIDNEY FAILURE, UNSPECIFIED; N18.9 - CHRONIC KIDNEY DISEASE, UNSPECIFIED SNOMED Code(s): 490481274 (6) History of pacemaker Current Visit: Yes Status: Acute Code(s): Z95.0 - PRESENCE OF CARDIAC PACEMAKER SNOMED Code(s): 905126197 Plan: Patient is still complaining of being short of breath. Has wheezing and rhonchi. Her creatinine is going up. Potassium is corrected. Dose of the Bumex was increased.
--- NOTE | 2019-02-19 14:20 | P.PN ---
Subjective Progress Note Date: 02/19/19 This is an 88-year-old female one of Dr. Cade patient's, she has a past medical history of chronic kidney disease stage IV, COPD, oxygen dependent on 2- 3 Lmostly at night, hypertension, restless leg syndrome, history of coronary artery disease, and prior coronary artery bypass 5 in 2002, pacemaker in 2009,generator change in 01/2017,2 diabetes, hypertension and dyslipidemia. patient comes in today with worsening shortness of breath for the past 1 week. Patient is always short of breath but for the past 1 week she has noticed increased shortness of breath at rest. She had a cataract surgery done on Sunday and was asked to follow with the primary care physician since there was no improvement in symptoms patient decided to come to the ER. She endorses shortness of breath associated with wheezing, nonproductive cough, orthopnea She was given a dose of IV Lasix 40 mg, started on DuoNeb's, and supplemental oxygen. Previous echocardiogram in January 2018, it revealed an EF of 35-40%, moderate concentric left ventricular hypertrophy, LV wall motion is hypokinetic, LA severely dilated, mild aortic regurgitation, moderate aortic stenosis, moderate mitral regurgitation, severe tricuspid regurgitation. Lasix switched to Bumex 1 mg twice a day. Repeat echocardiogram ordered , consult cardiology, for her acute on chronic congestive heart failure and aortic stenosis.we will also start him Solu-Medrol 60 every 6 as patient was noted to be short of breath and wheezy on examination 02/17patient has significant shortness of breath today, especially with just conversation, patient also has dyspnea and exertion, she has 2+ edema today, currently on IV Bumex, she has some wheezing, patient has chronic cough, intermittently she also has some coughing episodes when she eats, modified b arium swallow eval is requested, she is currently on IV Solu Medrol 60 mg every 6 hours, Bumex 1 mg twice a day, he would start albuterol when necessary, chest x-ray shows moderate cardiomegaly with pleural effusion, no obvious heart failure, improvement of pulmonary vascularityoncology has evaluated her, in in thrombocytopenia is a possibility, LDH requested, platelet count current 57 aspirin is allowed per oncology 02/19: Patient is still short of breath, she remains on Bumex 2 mg twice a day which was increased by nephrology, still has 2-3+ dependent edema, still on Solu-Medrol 60 mg every 6 hours, conversational dyspnea and noted, patient was on Zaroxolyn 2.5 mg daily at home, we are going to restart this back blood pressure is at 166 systolic patient has worsening creatinine though with worsening azotemia BUN of [address] shows moderate severe cardiomegaly, mild bilateral pleural effusion, with atelectasis carrying, Objective - Vital Signs Vital signs: Vital Signs Temp 98.2 F 02/19/19 04:00 Pulse 63 02/19/19 12:00 Resp 16 02/19/19 12:00 BP 166/74 02/19/19 12:00 Pulse Ox 95 02/19/19 12:00 Intake & Output 02/18/19 02/19/19 02/19/19 18:59 06:59 18:59 Intake Total 240 240 472 Output Total 250 300 Balance -10 -60 472 Weight 87.2 kg Intake: Oral 240 240 472 Output: Urine 250 300 Straight 250 Other: Voiding Method Toilet Toilet Toilet - Constitutional General appearance: Present: cooperative, mild distress - EENT Eyes: Present: anicteric sclerae, EOMI, PERRLA, poor dentition, normal appearance ENT: Present: NA/AT, normal oropharynx - Neck Neck: Present: normal ROM - Respiratory Respiratory: bilateral: diminished, rales, prolonged expiration, prolonged inspiration - Cardiovascular Rhythm: regular Heart sounds: normal: S1, S2 - Gastrointestinal General gastrointestinal: Present: normal bowel sounds, soft - Neurologic Neurologic: Present: CNII-XII intact - Musculoskeletal Musculoskeletal: Present: generalized weakness, strength equal bilaterally - Psychiatric Psychiatric: Present: A&O x's 3, appropriate affect - Labs CBC & Chem 7: 02/19/19 05:16 02/19/19 05:16 Labs: Abnormal Lab Results - Last 24 Hours (Table) 02/18/19 02/18/19 02/18/19 Range/Units 15:00 16:47 20:08 RDW (11.5-15.5) % Plt Count (150-450) k/uL Lymphocytes # (1.0-4.8) k/uL D-Dimer 1.50 H (<0.60) mg/L FEU Sodium 133 L (137-145) mmol/L Potassium 5.5 H (3.5-5.1) mmol/L Chloride (98-107) mmol/L BUN 90 H (7-17) mg/dL Creatinine 2.32 H (0.52-1.04) mg/dL Glucose 152 H (74-99) mg/dL POC Glucose (mg/dL) 192 H (75-99) mg/dL 02/18/19 02/19/19 02/19/19 Range/Units 20:38 05:16 05:16 RDW 15.9 H (11.5-15.5) % Plt Count 50 L (150-450) k/uL Lymphocytes # 0.2 L (1.0-4.8) k/uL D-Dimer (<0.60) mg/L FEU Sodium 135 L (137-145) mmol/L Potassium 5.3 H (3.5-5.1) mmol/L Chloride 97 L (98-107) mmol/L BUN 95 H (7-17) mg/dL Creatinine 2.44 H (0.52-1.04) mg/dL Glucose 156 H (74-99) mg/dL POC Glucose (mg/dL) 154 H (75-99) mg/dL 02/19/19 02/19/19 Range/Units 06:09 11:30 RDW (11.5-15.5) % Plt Count (150-450) k/uL Lymphocytes # (1.0-4.8) k/uL D-Dimer (<0.60) mg/L FEU Sodium (137-145) mmol/L Potassium (3.5-5.1) mmol/L Chloride (98-107) mmol/L BUN (7-17) mg/dL Creatinine (0.52-1.04) mg/dL Glucose (74-99) mg/dL POC Glucose (mg/dL) 165 H 224 H (75-99) mg/dL Assessment and Plan Plan: 1. Acute respiratory failure secondary to acute on chronic systolic congestive heart failure and aortic stenosis.echo from January 2018 suggest EF for 35-40% repeat echo currently shows atrial fibrillation paced rhythm, EF 30-35%, severe global hypokinesis, moderate LVH moderate MR and mild to moderate MS, severe tricuspid regurgitation moderate aortic valve sclerosis moderate aortic stenosis , mild pulmonary hypertension. continuepatient onBumex IV every 12 hours, continue her on her Imdur 60 mg, hydralazine 25mg 3 times a day,hold Zaroxolyn 2.5 mg daily and metoprolol 100 mg daily. Cardiology consulted, add nebulized albuterol Atrovent for bronchospasms, check for IgEhowever patient is already started on Solu-Medrol on admission , cannot rule out pulmonary emboli, unable to do contrast studies, evaluate with d-dimer thereafter if positive, will need VQ scan, consult with pulmonary Dr. Maya, for bilateral small pleural effusion, mighty thoracic ultrasound. Patient currently is on O2 nasal cannula 3 L. We will restart Aldactone if okayed by nephrology 2. Symptomatic aortic stenosis. Cardiology on consult, will resume meds as discussed in #1 3. acute COPD exacerbation recurrent cough, suspected aspiration pneumonia with coughing episodes during eating, Continue with supplemental oxygen, DuoNeb's, Solu-Medrol 60 IV every 6, continue Symbicort 2 puffs twice a day 4. Chronic kidney disease stage IV. Creatinine from January 2017 was 1.5, this seems to be baseline, will continue to monitor BUN and creatinine him a has slightly worsening creatinine with Bumex, nephrology is following closely, 5. Hyperkalemia, not on any potassium supplementation, not on any spironolactone, possibly related to CK D, continue Bumex, add Kayexalate 1 dose 5. Coronary artery disease status post coronary artery bypass graft in 2002, continue metoprolol, aspirin, atorvastatin, and Imdur 6. Ischemic cardiomyopathy with an ejection fraction of 35-40% with pacemaker, , hydralazine, Imdur metoprolol, aspirin, and atorvastatin, cardiology on consult.Bumex 1 mg IV twice a day I&O's daily weights patient may benefit from interest on discharge if EF low 7. Restless leg syndrome. Continue Requip 1 mg twice a day as needed 8. recent cataract surgery stable 9. Thrombocytopenia. We'll continue to monitor CBC 10. DVT prophylaxis.hold anticoagulation SCDs 11. GI prophylaxis. Pepcid chronic hypoxemic Restoril failure, on O2 3 L at home, CODE STATUS full code disposition patient needed at least 1-2 inpatient nights for stabilization
--- NOTE | 2019-02-19 14:21 | PN ---
PROGRESS NOTE Patient is seen for followup for chronic kidney disease and acute kidney injury. She is currently being diuresed for CHF. The patient remains short of breath. She is maintained on Bumex twice a day. Today, the patient continues to complain of progressive shortness of breath. Chest x-ray did show some pleural effusions. PHYSICAL EXAMINATION: On examination today, blood pressure was 170/71, heart rate 59 per minute, she is afebrile. Examination of the heart S1, S2. Examination of the lungs, bilateral breath sounds are heard, decreased breath sounds at bases. Occasional wheezing is heard. Abdomen is soft, nontender. Examination of lower extremities shows edema 1+ bilaterally. 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 LABS: Show sodium 135, potassium 5.3, chloride 97, BUN 95, creatinine 2.4, hemoglobin 12.7 g/dL, white cell count 6.7. ASSESSMENT: 1. Acute kidney injury, cardiorenal, renal function fairly stable. I will increase the Bumex. 2. Chronic kidney disease stage 3, baseline creatinine 1.5 secondary to nephrosclerosis. 3. Dyspnea secondary to congestive heart failure, possible underlying chronic obstructive pulmonary disease, increase the Bumex for 24 hours. 4. Hyperkalemia associated with renal failure. No evidence of gastrointestinal bleed. No evidence of urine retention. Maintain patient on low-potassium diet. PLAN: Increase Bumex and maintain patient on low-potassium diet. MMODL / IJN: [id number] /
[2019-02-19 16:36] LABS: Glucose,Whole Blood 173 mg/dL (75-99)
[2019-02-19] MEDS: METOLAZONE 2.5 MG TAB PO SCH (16:46)
[2019-02-19 20:27] LABS: Glucose,Whole Blood 212 mg/dL (75-99)
[2019-02-19] MEDS: ATORVASTATIN 10 MG TAB PO SCH (20:57)
[2019-02-20] MEDS: IPRATROPIUM-ALBUTEROL 3 ML NEB INHALATION SCH ×6 (01:06→20:39)
[2019-02-20 06:01] LABS: Glucose,Whole Blood 208 mg/dL (75-99)
[2019-02-20] MEDS: INSULIN ASPART (NovoLOG) 100 UNIT/ML VIAL SQ SCH ×4 (06:31→21:44)
[2019-02-20] MEDS: PANTOPRAZOLE 40 MG TABLET PO SCH (06:31)
[2019-02-20] MEDS: methylPREDNISolone SOD SUCCI 125 MG/2 ML VIAL IV SCH (06:31)
[2019-02-20 06:52] LABS: Basophils % (A) 0 %; Eosinophils % (A) 0 %; HGB 12.9 gm/dL (11.4-16.0); Lymphocytes # (A) 0.2 k/uL (1.0-4.8); Lymphocytes % (A) 3 %; MCH 31.2 pg (25.0-35.0); MCV 94.6 fL (80.0-100.0); Mean Platelet Volume 10.9; Monocytes # (A) 0.2 k/uL (0-1.0); Monocytes % (A) 4 %; Neutrophils # (A) 5.6 k/uL (1.3-7.7); Neutrophils % (A) 93 %; RBC 4.12 m/uL (3.80-5.40); RDW 15.9 % (11.5-15.5)
[2019-02-20 06:55] LABS: Platelet Count 52 k/uL (150-450)
[2019-02-20 07:10] LABS: Calcium 9.6 mg/dL (8.4-10.2); Potassium 4.3 mmol/L (3.5-5.1)
[2019-02-20] MEDS: SYMBICORT 160-4.5 MCG INHALER INHALATION PRN (08:11)
[2019-02-20] MEDS: ONDANSETRON 4 MG/2 ML VIAL IVP PRN ×2 (09:31→21:53)
[2019-02-20] MEDS: BUMETANIDE 0.25 MG/ML 4 ML VIAL IVP SCH ×2 (10:32→21:43)
[2019-02-20] MEDS: METOLAZONE 2.5 MG TAB PO SCH (10:33)
[2019-02-20] MEDS: METOPROLOL SUCCINATE (ER) 100 MG TAB.ER.24H PO SCH (10:34)
[2019-02-20] MEDS: CALCITRIOL 0.25 MCG CAP PO SCH (10:34)
[2019-02-20] MEDS: ISOSORBIDE MONONITRATE ER 60 MG TAB.ER.24H PO SCH (10:34)
[2019-02-20] MEDS: ALLOPURINOL 100 MG TAB PO SCH ×2 (10:34→21:43)
[2019-02-20] MEDS: hydrALAZINE HCL 25 MG TAB PO SCH ×3 (10:34→21:42)
--- NOTE | 2019-02-20 12:09 | XR ---
EXAMINATION TYPE: XR chest 2V DATE OF EXAM: 02/20/2019 COMPARISON: Prior chest x-ray 02/17/2019 HISTORY: Congestive heart failure TECHNIQUE: Frontal and lateral views of the chest are obtained. FINDINGS: Increased AP diameter of the chest finding the hemidiaphragms may be indicative of underlyi ng COPD. Patient is post median sternotomy, there are coronary artery calcifications. Minimal bluntin g the posterior costophrenic angles. There is blunting of the costophrenic angles. The cardiac silh ouette size is stable and enlarged. Bandlike area of increased attenuation the right midlung is stab le and may represent pleural thickening or scar. Aorta is dense. Generator is present in left pectora l region, there are leads in the right atrium and ventricle. The osseous structures are intact. IMPRESSION: Small pleural effusions and associated atelectasis. Cardiomegaly.
[2019-02-20 12:11] LABS: Glucose,Whole Blood 181 mg/dL (75-99)
--- NOTE | 2019-02-20 12:13 | P.PN ---
Subjective Progress Note Date: 02/20/19 Principal diagnosis: Acute exacerbation of chronic systolic congestive heart failure with acute on chronic hypoxemic respiratory failure This is a very pleasant 88-year-old female patient who follows with Dr. Vargas as her primary care physician. She has a history of coronary artery disease with previous coronary artery bypass grafting 5 in 2002, sick sinus syndrome with pacemaker implantation, hyperlipidemia, hypertension, diabetes mellitus, depression. She is a lifelong nonsmoker. She presented here to the emergency room back on 02/14/2019 with complaints of increasing shortness of breath and lower extremity swelling. Echocardiogram revealed moderate to severely impaired left ventricular systolic function with ejection fraction 30-35%. There is moderate to severe aortic sclerosis with moderate aortic stenosis and mild to moderate mitral stenosis. No significant pulmonary hypertension. She been initiated on IV Bumex and is improving gradually. She is seen today in consultation on the selective care unit after she had a computed tomography scan of the chest done that showed some small pleural effusions. She is maintaining O2 saturations at 99% on 3 L/m per nasal cannula. Sodium 135. Potassium 6.1. Bicarb 25. Creatinine 2.42. Troponin 0.039. 0.041. ProBNP 21,700. White count 9.2. Hemoglobin 12.6. The patient is seen today 02/19/2018 in follow-up on the selective care unit. She is currently resting comfortably in bed. Awake and alert in no acute distress.maintaining O2 saturations in the upper 90s on 3 L/m per nasal cannula. Still somewhat dyspneic with minimal exertion. She is diuresing well. Down 2 kg today. white count 6.7. Hemoglobin 12.7. Creatinine 2.44. She is continued on DuoNeb inhalations, Symbicort, IV Solu-Medrol, IV diuretics. On 02/20/2019 patient seen in follow-up on selective care unit, she sits up in the recliner, she is complaining of nausea and dry heaving. She has emesis bucket in her lap. She remains on supplement oxygen, 3 L, her pulse ox is 95%, she states her breathing is about the same, she does appear to be tachypneic, sounds reveal diminished breath sounds bilaterally, and ice chest pain, she's been afebrile. She has taken JVD bilaterally, she remains on Bumex at 2 mg IV push twice a day, in addition to Zaroxolyn, however she has not significantly diuresed, and actually she is in slightly positive fluid balance over the last 24 hours. Nephrology is following, today's labs have been reviewed showing slight worsening of her renal profile, B1 is 101, and creatinine is 2.55, serum sodium is 136, potassium is 4.3, chloride is 97, CO2 is 27. Patient's echocardiogram showed left scheduled to systolic function which is moderately severely impaired, with an EF of 30-35%, moderate aortic stenosis, mild to moderate mitral regurgitation, [id number] mitral stenosis, severe tricusp id regurg, and mild pulmonary hypertension Objective - Vital Signs Vital signs: Vital Signs Temp 96.3 F L 02/20/19 08:50 Pulse 60 02/20/19 08:50 Resp 34 H 02/20/19 08:50 BP 177/77 02/20/19 08:50 Pulse Ox 95 02/20/19 08:50 Intake & Output 02/19/19 02/20/19 02/20/19 18:59 06:59 18:59 Intake Total 694 120 Output Total 580 Balance 694 -580 120 Weight 87.4 kg Intake: Oral 694 120 Output: Urine 580 Other: Voiding Method Toilet Bedside Commode # Voids 2 2 - Exam GENERAL EXAM: Alert, 88-year-old female, 3 L of oxygen with a pulse ox of 95%, and mild to moderate amount of distress from nausea, and dry heaving, moderately short of breath with visible bilateral JVD EYES: Normal reaction of pupils, equal size. Conjunctiva pink, sclera white. NOSE: Clear with pink turbinates. THROAT: No erythema or exudates. NECK: No masses, no thyroid enlargement, no adenopathy. Bilateral JVD CHEST: No chest wall deformity. Symmetrical expansion. LUNGS: Equal air entry with no crackles, wheeze, rhonchi or dullness. CVS: Regular rate and rhythm, systolic murmur, normal S1 and S2, no gallops, ABDOMEN: Soft, nontender. No hepatosplenomegaly, normal bowel sounds, no guarding or rigidity. EXTREMITIES: No clubbing, no edema, no cyanosis, 2+ pulses and upper and lower extremities. MUSCULOSKELETAL: Muscle strength and tone normal. SPINE: No scoliosis or deformity SKIN: No rashes CENTRAL NERVOUS SYSTEM: Alert and oriented -3. No focal deficits, tone is normal in all 4 extremities. PSYCHIATRIC: Alert and oriented -3. Appropriate affect. Intact judgment and insight. - Labs CBC & Chem 7: 02/20/19 06:03 02/20/19 06:03 Labs: Abnormal Lab Results - Last 24 Hours (Table) 02/19/19 02/19/19 02/20/19 Range/Units 16:34 20:25 06:00 RDW (11.5-15.5) % Plt Count (150-450) k/uL Lymphocytes # (1.0-4.8) k/uL Sodium (137-145) mmol/L Chloride (98-107) mmol/L BUN (7-17) mg/dL Creatinine (0.52-1.04) mg/dL Glucose (74-99) mg/dL POC Glucose (mg/dL) 173 H 212 H 208 H (75-99) mg/dL 02/20/19 02/20/19 Range/Units 06:03 06:03 RDW 15.9 H (11.5-15.5) % Plt Count 52 L (150-450) k/uL Lymphocytes # 0.2 L (1.0-4.8) k/uL Sodium 136 L (137-145) mmol/L Chloride 97 L (98-107) mmol/L BUN 101 H* (7-17) mg/dL Creatinine 2.55 H (0.52-1.04) mg/dL Glucose 200 H (74-99) mg/dL POC Glucose (mg/dL) (75-99) mg/dL Assessment and Plan Plan: 1 Acute exacerbation of chronic systolic congestive heart failure, ejection fraction 30-35% 2 Acute on chronic hypoxemic respiratory failure secondary to above 3 Acute on chronic kidney disease, stage IV, current creatinine 2.44 4 Lifelong nonsmoker 5 Mild pleural effusions with atelectasis in a patient with moderately severe cardiomegaly 6 Coronary artery disease with previous coronary artery bypass grafting 5 7 Hyperkalemia secondary to acute on chronic renal failure 8 Hypertension 9 Hyperlipidemia 10 Osteoarthritis 11 Sick sinus syndrome status post permanent pacemaker implantation 12 Moderate aortic stenosis 13 Moderate mitral stenosis Plan: Repeat chest x-ray is pending, blood gases are pending, and continues on IV Bumex and Zaroxolyn, however has not significantly diuresed, with nephrology whether patient can be started on Bumex infusion. Continue with daily labs, a much less and renal profile, we'll decrease the dose of IV steroids 40 mg every 8 hours, continue with nebulized bronchodilators. Echocardiogram results have s hown impaired left ventricular systolic function with an EF of 30-35%, valvular disease involving the aortic, mitral and tricuspid valves. Overall prognosis extremely guarded, and CODE STATUS will have to be discussed at the family, and possibility of palliative care initiation. I performed a history & physical examination of the patient and discussed their management with my nurse practitioner, Lizzy Wood. I reviewed the nurse practitioner's note and agree with the documented findings and plan of care. Lung sounds are positive for diminished breath sounds. The findings and the impression was discussed with the patient. I attest to the documentation by the nurse practitioner. Time with Patient: Less than 30
[2019-02-20 12:50] LABS: ABG Base Excess 5.2 mmol/L; ABG HCO3 28 mmol/L (21-25); ABG Oxygen Saturation 98.3 % (94-97); ABG PCO2 37 mmHg (35-45); ABG PO2 94 mmHg (83-108); ABG TCO2 30 mmol/L (19-24); Allen Test Performed? Yes
[2019-02-20 14:07] VITALS: BMI 38.9
[2019-02-20] MEDS: methylPREDNISolone SOD SUCCI 40 MG/ML 1 ML VIAL IV SCH ×2 (16:12→21:53)
--- NOTE | 2019-02-20 16:20 | P.PN ---
Subjective Progress Note Date: 02/20/19 Principal diagnosis: thrombocytopenia In follow-up today patient is sitting in the chair, she is having difficulty in breathing, she states she doesn't feel well, currently experiencing nausea, no vomiting, denies fever, palpitations, bloating, diarrhea, constipation or bleeding Objective - Vital Signs Vital signs: Vital Signs Temp 96.7 F L 02/20/19 15:46 Pulse 60 02/20/19 15:46 Resp 20 02/20/19 15:46 BP 165/72 02/20/19 15:46 Pulse Ox 96 02/20/19 15:46 Intake & Output 02/19/19 02/20/19 02/20/19 18:59 06:59 18:59 Intake Total 694 120 Output Total 580 Balance 694 -580 120 Weight 87.4 kg 87.4 kg Intake: Oral 694 120 Output: Urine 580 Other: Voiding Method Toilet Bedside Commode # Voids 2 2 - Constitutional General appearance: Present: average body habitus, mild distress - EENT EENT Comment(s): dry mouth Eyes: Present: anicteric sclerae, EOMI ENT: Present: hearing grossly normal - Respiratory Details: respirations are labored at rest Respiratory: bilateral: diminished - Cardiovascular Abnormal Heart Sounds: Present: systolic murmur, other (JVD) - Peripheral edema leg Peripheral Edema: bilateral: 1+ - Gastrointestinal General gastrointestinal: Present: normal bowel sounds, soft - Neurologic Neurologic: Present: CNII-XII intact - Musculoskeletal Musculoskeletal: Present: generalized weakness - Psychiatric Psychiatric: Present: A&O x's 3, appropriate affect, intact judgment & insight - Labs CBC & Chem 7: 02/20/19 06:03 02/20/19 06:03 Labs: Abnormal Lab Results - Last 24 Hours (Table) 02/19/19 02/19/19 02/20/19 Range/Units 16:34 20:25 06:00 RDW (11.5-15.5) % Plt Count (150-450) k/uL Lymphocytes # (1.0-4.8) k/uL ABG pH (7.35-7.45) ABG HCO3 (21-25) mmol/L ABG Total CO2 (19-24) mmol/L ABG O2 Saturation (94-97) % Sodium (137-145) mmol/L Chloride (98-107) mmol/L BUN (7-17) mg/dL Creatinine (0.52-1.04) mg/dL Glucose (74-99) mg/dL POC Glucose (mg/dL) 173 H 212 H 208 H (75-99) mg/dL 02/20/19 02/20/19 02/20/19 Range/Units 06:03 06:03 12:10 RDW 15.9 H (11.5-15.5) % Plt Count 52 L (150-450) k/uL Lymphocytes # 0.2 L (1.0-4.8) k/uL ABG pH (7.35-7.45) ABG HCO3 (21-25) mmol/L ABG Total CO2 (19-24) mmol/L ABG O2 Saturation (94-97) % Sodium 136 L (137-145) mmol/L Chloride 97 L (98-107) mmol/L BUN 101 H* (7-17) mg/dL Creatinine 2.55 H (0.52-1.04) mg/dL Glucose 200 H (74-99) mg/dL POC Glucose (mg/dL) 181 H (75-99) mg/dL 02/20/19 Range/Units 12:31 RDW (11.5-15.5) % Plt Count (150-450) k/uL Lymphocytes # (1.0-4.8) k/uL ABG pH 7.50 H (7.35-7.45) ABG HCO3 28 H (21-25) mmol/L ABG Total CO2 30 H (19-24) mmol/L ABG O2 Saturation 98.3 H (94-97) % Sodium (137-145) mmol/L Chloride (98-107) mmol/L BUN (7-17) mg/dL Creatinine (0.52-1.04) mg/dL Glucose (74-99) mg/dL POC Glucose (mg/dL) (75-99) mg/dL Assessment and Plan (1) Thrombocytopenia Narrative/Plan: Much of the lab work is still pending. Awaiting final reports, will f/u with final recommendations Patient's platelet count has remained greater than 50,000, she can continue on antiplatelet as prescribed. DVT prophylaxis with SCDs Current Visit: Yes Status: Acute Priority: High Code(s): D69.6 - THROMBOCYTOPENIA, UNSPECIFIED SNOMED Code(s): 584557395
--- NOTE | 2019-02-20 16:34 | P.PN ---
Subjective Progress Note Date: 02/20/19 This 88-year-old female with history of coronary artery disease with previous bypass surgery, sick sinus syndrome with pacemaker implantation, hyperlipidemia, hypertension, diabetes and depression was admitted to the hospital with increasing shortness of breath and lower extremity swelling. Her LV function is severely impaired with ejection fraction 30-35%. Moderate aortic stenosis and mild to moderate mitral stenosis. Patient has been on IV Bumex. Seemed to be gradually improving. However her creatinine is going up and potassium is up. Patient was seen by nephrology. Patient put on Kayexalate. Recommended to continue Bumex at this time. We'll continue current medical therapy. Prognosis is guarded here. 02/19/2019: This patient with history of previous bypass surgery, sick sinus syndrome, hyperlipidemia and hypertension admitted with to the hospital with increasing edema and shortness of breath. Patient is still complaining of shortness of breath and seemed to have expiratory wheezes. Her potassium was high but came down with Late. Patient's dose of Bumex was increased by neph rology. Lungs show expiratory wheezes. Heart sounds are distant. Patient will continue current medical therapy. We'll follow BMP 02/20/2019: This patient with history of previous bypass surgery, cardiomyopathy was admitted to the hospital with complaints of increasing shortness of breath. Patient has been on Bumex and Zaroxolyn and urine output has been marginal. BUN and creatinine going up. Patient is still complaining of shortness of breath. Patient still has wheezing and rhonchi. Guide Dog Mobility Instructor feels it's all related to CHF. I'm going to start her on renal dose of dopamine. Prognosis is guarded Objective - Vital Signs Vital signs: Vital Signs Temp 96.7 F L 02/20/19 15:46 Pulse 60 02/20/19 15:46 Resp 20 02/20/19 15:46 BP 165/72 02/20/19 15:46 Pulse Ox 96 02/20/19 15:46 Intake & Output 02/19/19 02/20/19 02/20/19 18:59 06:59 18:59 Intake Total 694 120 Output Total 580 Balance 694 -580 120 Weight 87.4 kg 87.4 kg Intake: Oral 694 120 Output: Urine 580 Other: Voiding Method Toilet Bedside Commode # Voids 2 2 - Exam GENERAL EXAM: Patient is alert and oriented and seemed to feeling slightly better HEENT: Normocephalic. Normal reaction of pupils, equal size, normal range of extraocular motion. No erythema or exudates in the throat. NECK: No masses, no nuchal rigidity. CHEST: No chest wall deformity. LUNGS: Expiratory wheezes and rhonchi HEART: S1 and S2 normal with no audible mumurs or gallops. Regular rhythm, femorals equal on both sides.. ABDOMEN: No hepatosplenomegaly, normal bowel sounds, no guarding or rigidity. SKIN: No rashes CENTRAL NERVOUS SYSTEM: No focal deficits. EXTREMITIES: Resolving edema - Labs CBC & Chem 7: 02/20/19 06:03 02/20/19 06:03 Labs: Abnormal Lab Results - Last 24 Hours (Table) 02/19/19 02/19/19 02/20/19 Range/Units 16:34 20:25 06:00 RDW (11.5-15.5) % Plt Count (150-450) k/uL Lymphocytes # (1.0-4.8) k/uL ABG pH (7.35-7.45) ABG HCO3 (21-25) mmol/L ABG Total CO2 (19-24) mmol/L ABG O2 Saturation (94-97) % Sodium (137-145) mmol/L Chloride (98-107) mmol/L BUN (7-17) mg/dL Creatinine (0.52-1.04) mg/dL Glucose (74-99) mg/dL POC Glucose (mg/dL) 173 H 212 H 208 H (75-99) mg/dL 02/20/19 02/20/19 02/20/19 Range/Units 06:03 06:03 12:10 RDW 15.9 H (11.5-15.5) % Plt Count 52 L (150-450) k/uL Lymphocytes # 0.2 L (1.0-4.8) k/uL ABG pH (7.35-7.45) ABG HCO3 (21-25) mmol/L ABG Total CO2 (19-24) mmol/L ABG O2 Saturation (94-97) % Sodium 136 L (137-145) mmol/L Chloride 97 L (98-107) mmol/L BUN 101 H* (7-17) mg/dL Creatinine 2.55 H (0.52-1.04) mg/dL Glucose 200 H (74-99) mg/dL POC Glucose (mg/dL) 181 H (75-99) mg/dL 02/20/19 Range/Units 12:31 RDW (11.5-15.5) % Plt Count (150-450) k/uL Lymphocytes # (1.0-4.8) k/uL ABG pH 7.50 H (7.35-7.45) ABG HCO3 28 H (21-25) mmol/L ABG Total CO2 30 H (19-24) mmol/L ABG O2 Saturation 98.3 H (94-97) % Sodium (137-145) mmol/L Chloride (98-107) mmol/L BUN (7-17) mg/dL Creatinine (0.52-1.04) mg/dL Glucose (74-99) mg/dL POC Glucose (mg/dL) (75-99) mg/dL Assessment and Plan (1) Acute on chronic systolic congestive heart failure Current Visit: Yes Status: Acute Code(s): I50.23 - ACUTE ON CHRONIC SYSTOLIC (CONGESTIVE) HEART FAILURE SNOMED Code(s): 252286380 (2) CAD (coronary artery disease) Current Visit: Yes Status: Acute Code(s): I25.10 - ATHSCL HEART DISEASE OF [place] CORONARY ARTERY W/O ANG PCTRS SNOMED Code(s): 69542660 (3) Thrombocytopenia Current Visit: Yes Status: Acute Priority: High Code(s): D69.6 - THROMBOCYTOPENIA, UNSPECIFIED SNOMED Code(s): 639657175 (4) Cardiomyopathy Current Visit: Yes Status: Acute Code(s): I42.9 - CARDIOMYOPATHY, UNSPECIFIED SNOMED Code(s): 61401885 (5) Acute on chronic renal failure Current Visit: Yes Status: Acute Code(s): N17.9 - ACUTE KIDNEY FAILURE, UNSPECIFIED; N18.9 - CHRONIC KIDNEY DISEASE, UNSPECIFIED SNOMED Code(s): 393236487 (6) History of pacemaker Current Visit: Yes Status: Acute Code(s): Z95.0 - PRESENCE OF CARDIAC PACEMAKER SNOMED Code(s): 873602222 Plan: Patient is still short of breath. Has lungs showing wheezing and rhonchi. Chest x-ray showed cardiomegaly. BUN/creatinine are going up. I'm going to start her renal dose of dopamine
[2019-02-20] MEDS ORDERED: DOPamine DRIP 800 MG in DEXTROSE/WATER 1 250ML.BAG IV SCH (16:45)
--- NOTE | 2019-02-20 16:59 | P.PN ---
Subjective Progress Note Date: 02/20/19 This is an 88-year-old female one of Dr. Cade patient's, she has a past medical history of chronic kidney disease stage IV, COPD, oxygen dependent on 2- 3 Lmostly at night, hypertension, restless leg syndrome, history of coronary artery disease, and prior coronary artery bypass 5 in 2002, pacemaker in 2009,generator change in 01/2017,2 diabetes, hypertension and dyslipidemia. patient comes in today with worsening shortness of breath for the past 1 week. Patient is always short of breath but for the past 1 week she has noticed increased shortness of breath at rest. She had a cataract surgery done on Sunday and was asked to follow with the primary care physician since there was no improvement in symptoms patient decided to come to the ER. She endorses shortness of breath associated with wheezing, nonproductive cough, orthopnea She was given a dose of IV Lasix 40 mg, started on DuoNeb's, and supplemental oxygen. Previous echocardiogram in January 2018, it revealed an EF of 35-40%, moderate concentric left ventricular hypertrophy, LV wall motion is hypokinetic, LA severely dilated, mild aortic regurgitation, moderate aortic stenosis, moderate mitral regurgitation, severe tricuspid regurgitation. Lasix switched to Bumex 1 mg twice a day. Repeat echocardiogram ordered , consult cardiology, for her acute on chronic congestive heart failure and aortic stenosis.we will also start him Solu-Medrol 60 every 6 as patient was noted to be short of breath and wheezy on examination 02/17patient has significant shortness of breath today, especially with just conversation, patient also has dyspnea and exertion, she has 2+ edema today, currently on IV Bumex, she has some wheezing, patient has chronic cough, intermittently she also has some coughing episodes when she eats, modified b arium swallow eval is requested, she is currently on IV Solu Medrol 60 mg every 6 hours, Bumex 1 mg twice a day, he would start albuterol when necessary, chest x-ray shows moderate cardiomegaly with pleural effusion, no obvious heart failure, improvement of pulmonary vascularityoncology has evaluated her, in in thrombocytopenia is a possibility, LDH requested, platelet count current 57 aspirin is allowed per oncology 02/19: Patient is still short of breath, she remains on Bumex 2 mg twice a day which was increased by nephrology, still has 2-3+ dependent edema, still on Solu-Medrol 60 mg every 6 hours, conversational dyspnea and noted, patient was on Zaroxolyn 2.5 mg daily at home, we are going to restart this back blood pressure is at 166 systolic patient has worsening creatinine though with worsening azotemia BUN of [address] shows moderate severe cardiomegaly, mild bilateral pleural effusion, with atelectasis 02/20: Patient's respiratory distress is unchanged, still with shortness breath on conversation, O2 sats are 96% 3 L nasal cannula, blood pressure is 165/72, has shallow breathing and tachypnea, but she is 96.7, BUN/creatinine is worsening, cardiology recommended starting on renal dose dopamine, nephrology is unable to diuresis by giving IV drip Bumex, as it could worsen more azotemia, CODE STATUS is discussed as the patient's condition is currently guarded, patien t requests DO NOT RESUSCITATE, no CPR no ventilatory support. For catheter is draining clear urine about 600 -700 mL in 24 hours, I requested ABGs, pCO2 is normal at 37, currently without any hematuria or hematemesis hemoptysis still with 3+ dependent edema, Mat wrap started, Objective - Vital Signs Vital signs: Vital Signs Temp 96.7 F L 02/20/19 15:46 Pulse 60 02/20/19 15:46 Resp 20 02/20/19 15:46 BP 165/72 02/20/19 15:46 Pulse Ox 96 02/20/19 15:46 Intake & Output 02/19/19 02/20/19 02/20/19 18:59 06:59 18:59 Intake Total 694 120 Output Total 580 Balance 694 -580 120 Weight 87.4 kg 87.4 kg Intake: Oral 694 120 Output: Urine 580 Other: Voiding Method Toilet Bedside Commode # Voids 2 2 - Constitutional General appearance: Present: cooperative, mild distress, no acute distress - EENT Eyes: Present: EOMI, dentition normal, normal appearance ENT: Present: NA/AT, normal oropharynx - Neck Neck: Present: normal ROM - Respiratory Respiratory: bilateral: diminished, rhonchi, negative: wheezing, prolonged expiration, prolonged inspiration - Cardiovascular Rhythm: regular Heart sounds: normal: S1, S2 Abnormal Heart Sounds: Absent: systolic murmur, diastolic murmur, rub, S3 Gallop, S4 Gallop, click, other - Gastrointestinal General gastrointestinal: Present: normal bowel sounds, soft - Integumentary Integumentary: Present: decreased turgor, normal - Neurologic Neurologic: Present: CNII-XII intact - Musculoskeletal Musculoskeletal: Present: strength equal bilaterally - Psychiatric Psychiatric: Present: A&O x's 3, appropriate affect - Labs CBC & Chem 7: 02/20/19 06:03 02/20/19 06:03 Labs: Abnormal Lab Results - Last 24 Hours (Table) 02/19/19 02/20/19 02/20/19 Range/Units 20:25 06:00 06:03 RDW 15.9 H (11.5-15.5) % Plt Count 52 L (150-450) k/uL Lymphocytes # 0.2 L (1.0-4.8) k/uL ABG pH (7.35-7.45) ABG HCO3 (21-25) mmol/L ABG Total CO2 (19-24) mmol/L ABG O2 Saturation (94-97) % Sodium (137-145) mmol/L Chloride (98-107) mmol/L BUN (7-17) mg/dL Creatinine (0.52-1.04) mg/dL Glucose (74-99) mg/dL POC Glucose (mg/dL) 212 H 208 H (75-99) mg/dL 02/20/19 02/20/19 02/20/19 Range/Units 06:03 12:10 12:31 RDW (11.5-15.5) % Plt Count (150-450) k/uL Lymphocytes # (1.0-4.8) k/uL ABG pH 7.50 H (7.35-7.45) ABG HCO3 28 H (21-25) mmol/L ABG Total CO2 30 H (19-24) mmol/L ABG O2 Saturation 98.3 H (94-97) % Sodium 136 L (137-145) mmol/L Chloride 97 L (98-107) mmol/L BUN 101 H* (7-17) mg/dL Creatinine 2.55 H (0.52-1.04) mg/dL Glucose 200 H (74-99) mg/dL POC Glucose (mg/dL) 181 H (75-99) mg/dL Assessment and Plan Plan: 1. Acute respiratory failure secondary to acute on chronic systolic congestive heart failure and aortic stenosis.echo from January 2018 suggest EF for 35-40% repeat echo currently shows atrial fibrillation paced rhythm, EF 30-35%, severe global hypokinesis, moderate LVH moderate MR and mild to moderate MS, severe tricuspid regurgitation moderate aortic valve sclerosis moderate aortic stenosis , mild pulmonary hypertension. continuepatient onBumex IV every 12 hours, continue her on her Imdur 60 mg, hydralazine 25mg 3 times a day,hold Zaroxolyn 2.5 mg daily and metoprolol 100 mg daily. Cardiology consulted, add nebulized albuterol Atrovent for bronchospasms, check for IgEhowever patient is already started on Solu-Medrol on admission , cannot rule out pulmonary emboli, unable to do contrast studies, evaluate with d-dimer thereafter if positive, will need VQ scan, consult with pulmonary Dr. Maya, for bilateral small pleural effusion, might need thoracic ultrasound. Patient currently is on O2 nasal cannula 3 L. We will restart Aldactone okayed by nephrology , renal dose dopamine started by cardiology 2. Symptomatic aortic stenosis. Cardiology on consult, will resume meds as discussed in #1 3. acute COPD exacerbation recurrent cough, suspected aspiration pneumonia with coughing episodes during eating, Continue with supplemental oxygen, DuoNeb's, Solu-Medrol 60 IV every 6, continue Symbicort 2 puffs twice a day, patient unable to complete modified by swallow eval on February 18 secondary to severe shortness of breath which has recommended regular diet with thin liquids. 4. Chronic kidney disease stage IV. Creatinine from January 2017 was 1.5, this seems to be baseline, will continue to monitor BUN and creatinine him a has slightly worsening creatinine with Bumex, nephrology is following closely, 5. Hyperkalemia, not on any potassium supplementation, not on any spironolactone, possibly related to CK D, continue Bumex, add Kayexalate 1 dose 5. Coronary artery disease status post coronary artery bypass graft in 2002, continue metoprolol, aspirin, atorvastatin, and Imdur 6. Ischemic cardiomyopathy with an ejection fraction of 35-40% with pacemaker, , hydralazine, Imdur metoprolol, aspirin, and atorvastatin, cardiology on consult.Bumex 1 mg IV twice a day I&O's daily weights patient may benefit from interest on discharge if EF low 7. Restless leg syndrome. Continue Requip 1 mg twice a day as needed 8. recent cataract surgery stable 9. Thrombocytopenia. We'll continue to monitor CBC 10. DVT prophylaxis.hold anticoagulation SCDs 11. GI prophylaxis. Pepcid chronic hypoxemic Restoril failure, on O2 3 L at home, CODE STATUS full code disposition patient needed at least 1-2 inpatient nights for stabilization
[2019-02-20 17:17] LABS: Glucose,Whole Blood 179 mg/dL (75-99)
--- NOTE | 2019-02-20 17:38 | PN ---
PROGRESS NOTE Patient is seen for followup for CKD and acute kidney injury. This morning patient is complaining of nausea. She continues to be short of breath. Chest x-ray from this morning did not show any significant CHF. Her Bumex was increased yesterday. Chest x- ray actually appears to have improved. Creatinine is slightly higher. Blood pressure is not low; in fact, it is on the higher side. PHYSICAL EXAMINATION: On examination this morning, blood pressure was 177/77, heart rate 60 per minute. Patient is afebrile. EXAMINATION OF THE HEART: S1 and S2. EXAMINATION OF LUNGS: Bilateral breath sounds are heard. Wheezing is heard scattered bilaterally. [employer] exam is grossly intact. Examination of lower extremities shows edema 2+ bilaterally. ABDOMEN: Soft, non-tender. HEART: Heart sounds are heard. LABS: Sodium 136, potassium 4.3, chloride 97, BUN 101, serum creatinine 2.5 mg/dL. ASSESSMENT: 1. Acute kidney injury, cardiorenal. Serum creatinine slightly higher. Continue with the increased dose of Bumex. Chest x-ray looks better. There is no evidence of significant CHF on the chest x-ray from today. The BUN is disproportionately elevated secondary to steroids. I discussed with Pulmonology regarding decreasing the dose of steroids. 1. Nausea. We will give her Zofran. I doubt that this is from uremia. 2. Pulmonary hypertension, mild. 3. Cardiomyopathy; ejection fraction 30% to 35%. 4. Moderate aortic stenosis. 5. Severe global hypokinesis. PLAN: Continue the increased dose of Bumex. Repeat labs in a.m. Decrease steroids secondary to disproportionately elevated BUN. Zofran for nausea. I discussed with nursing staff regarding discussion of CODE STATUS. MMODL / IJN: [id number] /
[2019-02-20] MEDS: SYMBICORT 160-4.5 MCG INHALER INHALATION SCH ×2 (20:39→20:42)
[2019-02-20 20:42] LABS: Glucose,Whole Blood 151 mg/dL (75-99)
[2019-02-20] MEDS: ALPRAZolam 0.25 MG TAB PO PRN (21:42)
[2019-02-20] MEDS: ATORVASTATIN 10 MG TAB PO SCH (21:43)
[2019-02-21] MEDS: IPRATROPIUM-ALBUTEROL 3 ML NEB INHALATION SCH ×5 (03:24→16:32)
[2019-02-21 06:17] LABS: Glucose,Whole Blood 191 mg/dL (75-99)
[2019-02-21] MEDS: INSULIN ASPART (NovoLOG) 100 UNIT/ML VIAL SQ SCH ×2 (06:34→13:01)
[2019-02-21] MEDS: PANTOPRAZOLE 40 MG TABLET PO SCH (06:34)
[2019-02-21 06:48] LABS: Basophils # (A) 0.1 k/uL (0-0.2); Basophils % (A) 1 %; Eosinophils # (A) 0.1 k/uL (0-0.7); Eosinophils % (A) 1 %; Lymphocytes # (A) 0.2 k/uL (1.0-4.8); Lymphocytes % (A) 2 %; MCH 30.7 pg (25.0-35.0); MCHC 32.5 g/dL (31.0-37.0); MCV 94.5 fL (80.0-100.0); Mean Platelet Volume 10.2; Monocytes # (A) 0.5 k/uL (0-1.0); Monocytes % (A) 5 %; Neutrophils # (A) 7.4 k/uL (1.3-7.7); Neutrophils % (A) 90 %; RBC 4.23 m/uL (3.80-5.40); WBC 8.2 k/uL (3.8-10.6)
[2019-02-21 07:03] LABS: Calcium 9.3 mg/dL (8.4-10.2)
[2019-02-21 07:14] LABS: Platelet Count 47 k/uL (150-450)
[2019-02-21 07:28] LABS: Potassium 4.3 mmol/L (3.5-5.1)
[2019-02-21] MEDS: CALCITRIOL 0.25 MCG CAP PO SCH (09:09)
[2019-02-21] MEDS: hydrALAZINE HCL 25 MG TAB PO SCH ×2 (09:09→15:38)
[2019-02-21] MEDS: METOPROLOL SUCCINATE (ER) 100 MG TAB.ER.24H PO SCH (09:09)
[2019-02-21] MEDS: ALLOPURINOL 100 MG TAB PO SCH (09:09)
[2019-02-21] MEDS: ISOSORBIDE MONONITRATE ER 60 MG TAB.ER.24H PO SCH (09:09)
[2019-02-21] MEDS: METOLAZONE 2.5 MG TAB PO SCH (09:10)
[2019-02-21] MEDS: methylPREDNISolone SOD SUCCI 40 MG/ML 1 ML VIAL IV SCH ×2 (09:10→15:37)
[2019-02-21] MEDS: BUMETANIDE 0.25 MG/ML 4 ML VIAL IVP SCH (09:11)
[2019-02-21] MEDS: SYMBICORT 160-4.5 MCG INHALER INHALATION SCH (09:26)
--- NOTE | 2019-02-21 11:03 | PN ---
PROGRESS NOTE Patient is seen for followup for acute kidney injury. Patient has underlying COPD as well as CHF, mainly diastolic dysfunction. She is being diuresed with serum creatinine and has been progressively increasing. However, it is stable over the last couple of days. Bumex was increased 2 days ago. Chest x-ray from yesterday showed improvement in volume status. Therefore, I did not increase the diuretics further. Patient continues to complain of shortness of breath. I discussed with her this morning that if her renal function continues to deteriorate, if she would want to dialysis and she stated that she does not want any kind of renal replacement therapy. PHYSICAL EXAMINATION: On examination today, blood pressure was 165/78, heart rate 60 per minute, she is afebrile. Examination of the heart S1, S2. Examination of lungs, decreased breath sounds at the bases, occasional wheezing is heard. Abdomen is soft, non-tender. Examination of the lower extremities shows edema 2+ bilaterally. LABS: Show sodium 135, potassium 4.3, chloride 97, CO2 is 26, BUN 110, creatinine 2.5, hemoglobin 13.0 g/dL. ASSESSMENT: 1. Acute kidney injury, cardiorenal with disproportionately elevated BUN secondary to steroids. Chest x-ray showed improvement in the congestive heart failure. Patient continues to have small pleural effusions. Bumex dose was increased to 2 mg q.12 hours. I will continue with the current dose. At this time patient states she does not want any kind of renal replacement therapy. The steroids were decreased yesterday. 2. Congestive heart failure, acute on top of chronic, systolic. 3. Cardiomyopathy ejection fraction 30% to 35%. 4. Moderate aortic stenosis. 5. Severe global hypokinesis. 6. Mild pulmonary hypertension. PLAN: Increase Bumex to 2 mg q.8 hours, dopamine has been added. Consider dobutamine since EF is low. Patient is not a candidate for renal replacement therapy and at this time she refuses any kind of dialysis. Repeat labs in a.m. MMODL / IJN: [id number] /
[2019-02-21 11:36] LABS: Glucose,Whole Blood 177 mg/dL (75-99)
--- NOTE | 2019-02-21 13:54 | P.PN ---
Subjective Progress Note Date: 02/21/19 This is a pleasant 88-year-old female past medical history significant for coronary artery disease status post 5 vessel CABG in 2002, permanent pacemaker implantation, COPD, diabetes mellitus, hypertension, dyslipidemia, valvular heart disease, chronic persistent atrial fibrillation and chronic systolic heart failure. She follows in the office with Dr. Dueñas. We have been asked to see her in consultation secondary to shortness of breath.patient was seen and examined this morning, sitting up in the chair at bedside, had been up ambulating earlier, complaints of feeling short of breath, although she does feel better than yesterday.weight blood cell count 9.2, hemoglobin 12.6, platelet count 61, sodium 136, potassium 5.2, BUN 71 and creatinine 2.2. 02/21/2019 Patient seen and examined this morning, she states she feels mildly better today, apparently the decision was made earlier today after speaking with the pulmonary group to make her hospice this evening. She did have good urine output and overall her weight is down today. Dr. Adames did have a discussion with the family explaining that once the current medications are discontinued she will likely decompensate again. He also expressed that the suggestion of hospice from pulmonary standpoint was a good one. Blood pressure 173/74 with a heart rate of 60, 93% on 5 L.White blood cell count 8.2, hemoglobin 13.0, platelet count 47. Sodium 135, potassium 4.3, BUN 110, creatinine 2.5. Objective - Vital Signs Vital signs: Vital Signs Temp 97.1 F L 02/21/19 11:14 Pulse 60 02/21/19 12:44 Resp 28 H 02/21/19 11:50 BP 173/74 02/21/19 11:14 Pulse Ox 93 L 02/21/19 11:14 Intake & Output 02/20/19 02/21/19 02/21/19 18:59 06:59 18:59 Intake Total 120 0 Output Total 700 1100 Balance 120 -700 -1100 Weight 87.4 kg 82.5 kg Intake: Oral 120 0 Output: Urine 700 1100 Straight 700 Other: Voiding Method Indwelling Catheter Indwelling Catheter Indwelling Catheter - Exam CONSTITUTIONAL: No apparent distress. HEENT: Head is normocephalic. Pupils are equal, round. Sclerae anicteric. Mucous membranes of the mouth are moist. No JVD. No carotid bruit. CHEST EXAMINATION: Lungs reveal bilateral rales. No chest wall tenderness is noted on palpation or with deep breathing. HEART EXAMINATION: Irregular rate and rhythm. S1, S2 heard. Systolic ejection murmur at the base, no gallops or rub. ABDOMEN: Soft, nontender. Positive bowel sounds. EXTREMITIES: 2+ peripheral pulses, 2+ bilateral lower extremity pitting edema and no calf tenderness. NEUROLOGIC EXAMINATION: Patient is awake, alert and oriented x2. - Labs CBC & Chem 7: 02/21/19 06:27 02/21/19 06:27 Labs: Abnormal Lab Results - Last 24 Hours (Table) 02/20/19 02/20/19 02/21/19 Range/Units 17:16 20:41 06:16 RDW (11.5-15.5) % Plt Count (150-450) k/uL Lymphocytes # (1.0-4.8) k/uL Sodium (137-145) mmol/L Chloride (98-107) mmol/L BUN (7-17) mg/dL Creatinine (0.52-1.04) mg/dL Glucose (74-99) mg/dL POC Glucose (mg/dL) 179 H 151 H 191 H (75-99) mg/dL 02/21/19 02/21/19 02/21/19 Range/Units 06:27 06:27 11:28 RDW 16.0 H (11.5-15.5) % Plt Count 47 L (150-450) k/uL Lymphocytes # 0.2 L (1.0-4.8) k/uL Sodium 135 L (137-145) mmol/L Chloride 97 L (98-107) mmol/L BUN 110 H* (7-17) mg/dL Creatinine 2.54 H (0.52-1.04) mg/dL Glucose 182 H (74-99) mg/dL POC Glucose (mg/dL) 177 H (75-99) mg/dL Assessment and Plan Plan: ASSESSMENTand plan #1Acute on chronic systolic heart failure #2Ischemic cardiomyopathy, ejection fraction 30-35% #3Coronary artery disease status post bypass grafting #4Chronic kidney disease #Mild troponin elevation likely secondary to renal function with no significant rise and fall pattern to suggest an acute coronary syndrome. #6Significant valvular heart disease, aortic stenosis, mitral regurgitation and tricuspid regurgitation #7Thrombocytopenia plan We will continue patient on current dose of IV Bumex, Zaroxolyn and dobutamine. Plans are being made for the patient to be initiated on hospice this evening. DNP note has been reviewed, I agree with a documented findings and plan of care. Patient was seen and examined.
[2019-02-21 15:08] VITALS: BP 158/73; TEMP 97.7
[2019-02-21] MEDS: ONDANSETRON 4 MG/2 ML VIAL IVP PRN (15:38)
[2019-02-21] MEDS ORDERED: BUMETANIDE 0.25 MG/ML 4 ML VIAL IVP SCH (16:00)
--- NOTE | 2019-02-21 16:40 | P.PN ---
Subjective Progress Note Date: 02/21/19 Principal diagnosis: thrombocytopenia In follow-up today patient is laying in bed, family at bedside, no c/o bleeding, breathing is more comfortable today Objective - Vital Signs Vital signs: Vital Signs Temp 97.7 F 02/21/19 15:07 Pulse 64 02/21/19 16:33 Resp 22 02/21/19 16:33 BP 158/73 02/21/19 15:07 Pulse Ox 98 02/21/19 15:07 Intake & Output 02/20/19 02/21/19 02/21/19 18:59 06:59 18:59 Intake Total 120 0 Output Total 700 1100 Balance 120 -700 -1100 Weight 87.4 kg 82.5 kg Intake: Oral 120 0 Output: Urine 700 1100 Straight 700 Other: Voiding Method Indwelling Catheter Indwelling Catheter Indwelling Catheter - Constitutional General appearance: Present: average body habitus, cooperative, no acute distress - Gastrointestinal General gastrointestinal: Present: normal bowel sounds, soft - Integumentary Integumentary Comment(s): multiple bruises on the forearms from known areas of trauma - Musculoskeletal Musculoskeletal: Present: generalized weakness - Psychiatric Psychiatric: Present: A&O x's 3 - Labs CBC & Chem 7: 02/21/19 06:27 02/21/19 06:27 Labs: Abnormal Lab Results - Last 24 Hours (Table) 02/20/19 02/20/19 02/21/19 Range/Units 17:16 20:41 06:16 RDW (11.5-15.5) % Plt Count (150-450) k/uL Lymphocytes # (1.0-4.8) k/uL Sodium (137-145) mmol/L Chloride (98-107) mmol/L BUN (7-17) mg/dL Creatinine (0.52-1.04) mg/dL Glucose (74-99) mg/dL POC Glucose (mg/dL) 179 H 151 H 191 H (75-99) mg/dL 02/21/19 02/21/19 02/21/19 Range/Units 06:27 06:27 11:28 RDW 16.0 H (11.5-15.5) % Plt Count 47 L (150-450) k/uL Lymphocytes # 0.2 L (1.0-4.8) k/uL Sodium 135 L (137-145) mmol/L Chloride 97 L (98-107) mmol/L BUN 110 H* (7-17) mg/dL Creatinine 2.54 H (0.52-1.04) mg/dL Glucose 182 H (74-99) mg/dL POC Glucose (mg/dL) 177 H (75-99) mg/dL Assessment and Plan (1) Thrombocytopenia Narrative/Plan: No evidence to suggest primary marrow disorder, likely ITP. Family agrees no bone marrow. Plt 47K today, no antiplatelet or anticoagulants noted on medication list. Plt need to be >50K if needed Pt son states planning on hospice. Current Visit: Yes Status: Acute Priority: High Code(s): D69.6 - THROMBOCYTOPENIA, UNSPECIFIED SNOMED Code(s): 216928078
[2019-02-21 16:41] VITALS: PULSE 60; RESP 16
--- NOTE | 2019-02-21 21:54 | P.DS ---
Providers Date of admission: 02/14/19 13:30 Expected date of discharge: 02/21/19 Attending physician: Clementina Martinez MD Consults: 02/14/19 13:28 Consult Physician Routine Consulting Provider: Curtis Dunne Consult Reason/Comments: thrombocytopenia Do you want consulting provider notified?: Yes Consult Physician Routine Consulting Provider: Milla Shipley Consult Reason/Comments: chf Do you want consulting provider notified?: Yes 02/15/19 08:42 Consult Physician Routine Consulting Provider: Puja Reid Consult Reason/Comments: renal failure, needs diuresis Do you want consulting provider notified?: Yes 02/18/19 14:16 Consult Physician Routine Consulting Provider: Beatrice Cancino Consult Reason/Comments: shortness of breath pleural effusion Do you want consulting provider notified?: Yes Primary care physician: [facility] Course: This is an 88-year-old female one of Dr. aCde patient's, she has a past medical history of chronic kidney disease stage IV, COPD, oxygen dependent on 2- 3 Lmostly at night, hypertension, restless leg syndrome, history of coronary artery disease, and prior coronary artery bypass 5 in 2002, pacemaker in 2009,generator change in 01/2017,2 diabetes, hypertension and dyslipidemia. patient comes in today with worsening shortness of breath for the past 1 week. Patient is always short of breath but for the past 1 week she has noticed increased shortness of breath at rest. She had a cataract surgery done on Sunday and was asked to follow with the primary care physician since there was no improvement in symptoms patient decided to come to the ER. She endorses shortness of breath associated with wheezing, nonproductive cough, orthopnea She was given a dose of IV Lasix 40 mg, started on DuoNeb's, and supplemental oxygen. Previous echocardiogram in January 2018, it revealed an EF of 35-40%, moderate concentric left ventricular hypertrophy, LV wall motion is hypokinetic, LA severely dilated, mild aortic regurgitation, moderate aortic stenosis, moderate mitral regurgitation, severe tricuspid regurgitation. Lasix switched to Bumex 1 mg twice a day. Repeat echocardiogram ordered , consult cardiology, fo r her acute on chronic congestive heart failure and aortic stenosis.we will also start him Solu-Medrol 60 every 6 as patient was noted to be short of breath and wheezy on examination 02/17patient has significant shortness of breath today, especially with just conversation, patient also has dyspnea and exertion, she has 2+ edema today, currently on IV Bumex, she has some wheezing, patient has chronic cough, intermittently she also has some coughing episodes when she eats, modified barium swallow eval is requested, she is currently on IV Solu Medrol 60 mg every 6 hours, Bumex 1 mg twice a day, he would start albuterol when necessary, chest x-ray shows moderate cardiomegaly with pleural effusion, no obvious heart failure, improvement of pulmonary vascularityoncology has evaluated her, in in thrombocytopenia is a possibility, LDH requested, platelet count current 57 aspirin is allowed per oncology 02/19: Patient is still short of breath, she remains on Bumex 2 mg twice a day which was increased by nephrology, still has 2-3+ dependent edema, still on Solu-Medrol 60 mg every 6 hours, conversational dyspnea and noted, patient was on Zaroxolyn 2.5 mg daily at home, we are going to restart this back blood pressure is at 166 systolic patient has worsening creatinine though with worsening azotemia BUN of [address] shows moderate severe cardiomegaly, mild bilateral pleural effusion, with atelectasis 02/20: Patient's respiratory distress is unchanged, still with shortness breath on conversation, O2 sats are 96% 3 L nasal cannula, blood pressure is 165/72, has shallow breathing and tachypnea, but she is 96.7, BUN/creatinine is worsening, cardiology recommended starting on renal dose dopamine, nephrology is unable to diuresis by giving IV drip Bumex, as it could worsen more azotemia, CODE STATUS is discussed as the patient's condition is currently guarded, patient requests DO NOT RESUSCITATE, no CPR no ventilatory support. For catheter is draining clear urine about 600 -700 mL in 24 hours, I requested ABGs, pCO2 is normal at 37, currently without any hematuria or hematemesis hemoptysis still with 3+ dependent edema, Mat wrap started, 02/21, patient continues to decline further now thativ prednisone was decreased, BUN and creatining continues to rise, did not get better with renal dose dopamine, patient very short of breath, has 1100 diuresis today and is at a nega tive balance, patient's advanced care planning was extensively discussed today with her and her son, and with her wishes are respected as she wants hospice care. we will start on hospice care once her son will arrive at 4 pm today after whole family are in unison of her care. patient at maximum medical managmeent. progrosis remains guarded and irreversible. final diagnosis/hosptial course 1. Acute respiratory failure secondary to acute on chronic systolic congestive heart failure and aortic stenosis.echo from January 2018 suggest EF for 35-40% repeat echo currently shows atrial fibrillation paced rhythm, EF 30-35%, severe global hypokinesis, moderate LVH moderate MR and mild to moderate MS, severe tricuspid regurgitation moderate aortic valve sclerosis moderate aortic stenosis , mild pulmonary hypertension. continuepatient onBumex IV every 12 hours, continue her on her Imdur 60 mg, hydralazine 25mg 3 times a day,hold Zaroxolyn 2.5 mg daily and metoprolol 100 mg daily. Cardiology consulted, add nebulized albuterol Atrovent for bronchospasms, check for IgEhowever patient is already started on Solu-Medrol on admission , cannot rule out pulmonary emboli, unable to do contrast studies, evaluate with d-dimer thereafter if positive, will need VQ scan, consult with pulmonary Dr. Maya, for bilateral small pleural effusion, might need thoracic ultrasound. Patient currently is on O2 nasal cannula 3 L. We will restart Aldactone okayed by nephrology , renal dose dopamine started by cardiology. continues to deteriorate, hospice care initiated 2. Symptomatic aortic stenosis. Cardiology on consult, will resume meds as discussed in #1 3. acute COPD exacerbation recurrent cough, suspected aspiration pneumonia with coughing episodes during eating, Continue with supplemental oxygen, DuoNeb's, Solu-Medrol 60 IV every 6, continue Symbicort 2 puffs twice a day, patient unable to complete modified by swallow eval on February 18 secondary to severe shortness of breath which has recommended regular diet with thin liquids. 4. Chronic kidney disease stage IV. Creatinine from January 2017 was 1.5, this seems to be baseline, will continue to monitor BUN and creatinine him a has slightly worsening creatinine with Bumex, nephrology is following closely, 5. Hyperkalemia, not on any potassium supplementation, not on any spironolactone, possibly related to CK D, continue Bumex, add Kayexalate 1 dose 5. Coronary artery disease status post coronary artery bypass graft in 2002, continue metoprolol, aspirin, atorvastatin, and Imdur 6. Ischemic cardiomyopathy with an ejection fraction of 35-40% with pacemaker, , hydralazine, Imdur metoprolol, aspirin, and atorvastatin, cardiology on consult.Bumex 1 mg IV twice a day I&O's daily weights patient may benefit from interest on discharge if EF low 7. Restless leg syndrome. Continue Requip 1 mg twice a day as needed 8. recent cataract surgery stable 9. Thrombocytopenia. We'll continue to monitor CBC 10. DVT prophylaxis.hold anticoagulation SCDs 11. GI prophylaxis. Pepcid chronic hypoxemic Respriatory failure, on O2 3 L at home, CODE STATUS comfort care hospice Plan - Discharge Summary New Discharge Prescriptions: No Action hydrALAZINE HCL [Apresoline] 25 mg PO TID Metolazone [Zaroxolyn] 2.5 mg PO DAILY Isosorbide Mononitrate ER [Imdur] 60 mg PO DAILY Fluticasone Nasal [place] [Flonase Nasal [place]] 2 spray EA NOSTRIL DAILY Fish Oil/Dha/Epa [Fish Oil 1,200 mg Fish Oil] 1 cap PO DAILY Cinnamon Bark [Cinnamon] 500 mg PO DAILY Calcitriol [Rocaltrol] 0.25 mcg PO DAILY Bumetanide [BUMEX] 3 mg PO DAILY Budesonide/Formoterol Fumarate [Symbicort 160-4.5 Mcg Inhaler] 2 puff INHALATION RT-BID PRN PRN Reason: Shortness Of Breath Albuterol Nebulized [Ventolin Nebulized] 2.5 mg INHALATION RT-TID Acetaminophen Tab [Tylenol] 500 mg PO Q4H PRN PRN Reason: Pain Omeprazole [PriLOSEC] 20 mg PO DAILY Nitroglycerin Sl Tabs [Nitrostat] 0.4 mg SUBLINGUAL Q5M PRN PRN Reason: Chest Pain rOPINIRole HCL [Requip] 1 mg PO BID Simvastatin [Zocor] 20 mg PO HS Potassium Chloride Oral Liquid 40 meq PO DAILY Metoprolol Succinate (ER) [Toprol XL] 100 mg PO DAILY Allopurinol [Zyloprim] 100 mg PO BID Discharge Medication List Acetaminophen Tab [Tylenol] 500 mg PO Q4H PRN 01/26/17 [History] Albuterol Nebulized [Ventolin Nebulized] 2.5 mg INHALATION RT-TID 01/26/17 [History] Budesonide/Formoterol Fumarate [Symbicort 160-4.5 Mcg Inhaler] 2 puff INHALATION RT-BID PRN 01/26/17 [History] Bumetanide [BUMEX] 3 mg PO DAILY 01/26/17 [History] Calcitriol [Rocaltrol] 0.25 mcg PO DAILY 01/26/17 [History] Cinnamon Bark [Cinnamon] 500 mg PO DAILY 01/26/17 [History] Fish Oil/Dha/Epa [Fish Oil 1,200 mg Fish Oil] 1 cap PO DAILY 01/26/17 [History] Fluticasone Nasal [place] [Flonase Nasal [place]] 2 spray EA NOSTRIL DAILY 01/26/17 [History] Isosorbide Mononitrate ER [Imdur] 60 mg PO DAILY 01/26/17 [History] Metolazone [Zaroxolyn] 2.5 mg PO DAILY 01/26/17 [History] Nitroglycerin Sl Tabs [Nitrostat] 0.4 mg SUBLINGUAL Q5M PRN 01/26/17 [History] Omeprazole [PriLOSEC] 20 mg PO DAILY 01/26/17 [History] Simvastatin [Zocor] 20 mg PO HS 01/26/17 [History] hydrALAZINE HCL [Apresoline] 25 mg PO TID 01/26/17 [History] rOPINIRole HCL [Requip] 1 mg PO BID 01/26/17 [History] Potassium Chloride Oral Liquid 40 meq PO DAILY 08/19/17 [History] Metoprolol Succinate (ER) [Toprol XL] 100 mg PO DAILY 09/16/18 [History] Allopurinol [Zyloprim] 100 mg PO BID 02/14/19 [History] Follow up Appointment(s)/Referral(s): Otilio Vargas MD [Primary Care Provider] - 1-2 days Activity/Diet/Wound Care/Special Instructions: CHF 1. Weigh yourself every morning after you urinate. If you gain 2-3 pounds overnight or 5 pounds in one week, call your primary physician for guidance on your medications. Keep a log of your weights. 2. Avoid salt, or foods with hidden salt. Extra salt makes your heart work harder and traps the fluid in your body for longer. 3. Take all of your medications as directed, especially your water pills. NEVER skip a dose. 4. Elevate your legs when you are not up moving around to help with circulation and prevent swelling. 5. Call your physician if you notice any extra swelling in your legs, ankles, feet or abdomen, if you have a new dry cough, if your shortness of breath worsens with activity or at rest, or if you feel more fatigued. Discharge Disposition: OTHER INSTITUTION NOT DEFINED
[2019-02-24 10:41] LABS: Albumin 3.86 g/dL (3.80-4.90); Gamma Globulin 0.56 g/dL (0.70-1.50)
== END 2019-02-21 17:11 | disposition hospice, inpatient (51) | DRG 291 ==
LOC: EC 10:18 → 3SCARD 13:30
PROVIDERS: ADMIT Internal Medicine; ATTEND Internal Medicine
DX: I13.0 Hypertensive heart and chronic kidney disease with heart failure and stage 1 through stage 4 chronic kidney disease, or unspecified chronic kidney disease (principal); I50.23 Acute on chronic systolic (congestive) heart failure; J96.21 Acute and chronic respiratory failure with hypoxia; J69.0 Pneumonitis due to inhalation of food and vomit; E87.1 Hypo-osmolality and hyponatremia; I48.19 Other persistent atrial fibrillation; J44.1 Chronic obstructive pulmonary disease with (acute) exacerbation; J98.11 Atelectasis; N17.9 Acute kidney failure, unspecified; N18.4 Chronic kidney disease, stage 4 (severe); Z51.5 Encounter for palliative care; Z66 Do not resuscitate; D69.6 Thrombocytopenia, unspecified; I27.20 Pulmonary hypertension, unspecified; I49.5 Sick sinus syndrome; E11.36 Type 2 diabetes mellitus with diabetic cataract; E11.22 Type 2 diabetes mellitus with diabetic chronic kidney disease; E78.5 Hyperlipidemia, unspecified; E87.5 Hyperkalemia; F32.9 Major depressive disorder, single episode, unspecified; G25.81 Restless legs syndrome; I08.3 Combined rheumatic disorders of mitral, aortic and tricuspid valves; I25.10 Atherosclerotic heart disease of native coronary artery without angina pectoris; I25.5 Ischemic cardiomyopathy; I70.0 Atherosclerosis of aorta; M19.90 Unspecified osteoarthritis, unspecified site; T38.0X5A Adverse effect of glucocorticoids and synthetic analogues, initial encounter; G89.29 Other chronic pain; K21.9 Gastro-esophageal reflux disease without esophagitis; M10.9 Gout, unspecified; M54.5 Low back pain; R11.2 Nausea with vomiting, unspecified; E66.9 Obesity, unspecified; F40.240 Claustrophobia; R79.89 Other specified abnormal findings of blood chemistry; Z68.36 Body mass index [BMI] 36.0-36.9, adult; Z79.51 Long term (current) use of inhaled steroids; Z79.899 Other long term (current) drug therapy; Z88.1 Allergy status to other antibiotic agents; Z88.5 Allergy status to narcotic agent; Z88.8 Allergy status to other drugs, medicaments and biological substances; Z98.42 Cataract extraction status, left eye; Z96.1 Presence of intraocular lens; Z99.81 Dependence on supplemental oxygen; Z96.651 Presence of right artificial knee joint; Z95.5 Presence of coronary angioplasty implant and graft; Z95.1 Presence of aortocoronary bypass graft; Z95.0 Presence of cardiac pacemaker; Z90.710 Acquired absence of both cervix and uterus; Z90.49 Acquired absence of other specified parts of digestive tract; Z96.611 Presence of right artificial shoulder joint; Z82.49 Family history of ischemic heart disease and other diseases of the circulatory system; Z82.5 Family history of asthma and other chronic lower respiratory diseases; Z83.3 Family history of diabetes mellitus
CPT/HCPCS: 36415; 36600; 71045; 71046; 71250; 80048; 80053; 81003; 82570; 82607; 82728; 82747; 82785; 82805; 83540; 83550; 83615; 83880; 83883; 84156; 84165; 84443; 84484; 85025; 85379; 85610; 85730; 86334; 86803; 93005; 93306; 94640; 94760; 96374; 99285

== ENCOUNTER 2019-02-21 11:39 | Inpatient (IN) | payer MEDICAID ==
[2019-02-21] MEDS ORDERED: ACETAMINOPHEN SUPPOSITORY 650 MG SUPP RECTAL PRN (16:46)
[2019-02-21] MEDS ORDERED: GLYCOPYRROLATE 0.2 MG/ML 2 ML VIAL IVP PRN (16:46)
[2019-02-21] MEDS ORDERED: ATROPINE OPHTH SOLN 1% 5ML BTL SUBLINGUAL PRN (16:46)
[2019-02-21] MEDS ORDERED: ONDANSETRON 4 MG/2 ML VIAL IVP PRN (16:46)
[2019-02-21] MEDS ORDERED: LORazepam 2 MG/ML INJ IV PRN (16:46)
[2019-02-21] MEDS: IPRATROPIUM-ALBUTEROL 3 ML NEB INHALATION SCH (21:02)
[2019-02-21] MEDS: BUMETANIDE 0.25 MG/ML 10 ML VIAL IV SCH (22:59)
[2019-02-22] MEDS: IPRATROPIUM-ALBUTEROL 3 ML NEB INHALATION SCH ×6 (02:00→20:35)
[2019-02-22] MEDS: SODIUM CHLORIDE 0.9% NEBULIZ 3 ML INHALATION PRN ×4 (03:50→17:39)
[2019-02-22] MEDS: MORPHINE CONC SOLN 10mg/0.5mL ORAL SYRG MISCELLANE PRN ×3 (03:51→17:39)
[2019-02-22] MEDS: BUMETANIDE 0.25 MG/ML 10 ML VIAL IV SCH ×2 (08:56→22:28)
--- NOTE | 2019-02-22 14:34 | P.HPIM ---
History of Present Illness H&P Date: 02/22/19 This is an 88-year-old female one of Dr. Cade patient's, now entered into the hospice program, inpatient. she has a past medical history of chronic kidney disease stage IV, COPD, oxygen dependent on 2- 3 Lmostly at night, hypertension, restless leg syndrome, history of coronary artery disease, and prior coronary artery bypass 5 in 2002, pacemaker in 2009,generator change in 01/2017,2 diabetes, hypertension and dyslipidemia. patient comes in today with worsening shortness of breath for the past 1 week. Patient is always short of breath, with worsening shortness of breath, was recently managing a facility for multiple symptoms, has a terminal diagnoses of acute respiratory failure secondary to acute on chronic systolic CHF, symptomatic aortic stenosis, ejection fraction 35-40%, COPD with exacerbation, CK D stage IV, with azotemia, hyperkalemia, CAD with prior CABG in 2002, ischemic cardiomyopathy, requiring a pacemaker, as well as leg syndrome, recent cataract surgery, and recent thrombo- cytopenia. She had failed aggressive treatments including IV diuretics, IV steroids, renal dose dopamine, not a surgical candidate for hemodialysis, family has decided on hospice management as of 02/21/2019 for which the current hospitalization is for. She was admitted from our facility February 16 till February 21 for the critical medical problems as per family wishes, she wanted to be made hospice comfort care measures only Review of Systems Constitutional: Reports as per HPI, Reports anorexia Ears, nose, mouth and throat: Reports as per HPI, Denies ant. neck pain, Denies bleeding gums, Denies dental pain, Denies dysphagia, Denies epistaxis, Denies headache, Denies hoarseness, Denies mouth pain, Denies nasal congestion, Denies nasal discharge, Denies neck fullness/pressure, Denies neck lump, Denies nose pain, Denies odynophagia, Denies post-nasal drip, Denies sinus pain, Denies sinus pressure, Denies swelling in mouth, Denies swelling in throat, Denies sore throat, Denies vertigo, Denies voice changes Cardiovascular: Reports as per HPI, Reports dyspnea on exertion, Reports orthopnea, Reports shortness of breath Respiratory: Reports as per HPI, Reports cough Gastrointestinal: Reports as per HPI, Denies abdominal pain, Denies belching, Denies bloating, Denies BRBPR, Denies change in bowel habits, Denies coffee ground emesis, Denies constipation, Denies diarrhea, Denies dyspepsia, Denies early satiety, Denies excessive gas, Denies heartburn, Denies hematemesis, Denies hematochezia, Denies indigestion, Denies jaundice, Denies lactose intolerance, Denies loss of appetite, Denies melena, Denies nausea, Denies vomiting Genitourinary: Reports as per HPI Menstruation: Reports as per HPI, Reports postmenopausal Musculoskeletal: Reports gait dysfunction, Reports limitation of motion Integumentary: Reports as per HPI Neurological: Reports as per HPI, Denies aphasia, Denies ataxia, Denies balance difficulties, Denies burning pain, Denies change in mentation, Denies change in smell/taste, Denies change in speech, Denies confusion, Denies convulsions, Denies double vision, Denies gait dysfunction, Denies head injury, Denies headaches, Denies hearing difficulties, Denies lack of coordination, Denies loss of vision, Denies memory loss, Denies migraines, Denies motor disturbance, Denies numbness, Denies paralysis, Denies paresthesias, Denies seizures, Denies sensory deficit, Denies spasticity, Denies syncope, Denies tic, Denies tingling, Denies transient paralysis, Denies tremors, Denies vertigo, Denies weakness, Denies visual changes Psychiatric: Reports as per HPI Endocrine: Reports as per HPI Hematologic/Lymphatic: Reports as per HPI, Reports easy bruising, Denies easy bleeding, Denies lymphadenopathy, Denies lymphedema, Denies thrombophilia Allergic/Immunologic: Reports as per HPI, Denies allergic rhinitis, Denies anaphylaxis, Denies angioedema, Denies gluten intolerance, Denies persistent infections, Denies seasonal allergies, Denies urticaria, Denies wheezing Past Medical History Past Medical History: Coronary Artery Disease (CAD), Heart Failure, COPD, Diabetes Mellitus, GERD/Reflux, Hyperlipidemia, Hypertension, Renal Disease Additional Past Medical History / Comment(s): RLS, "borderline diabetes", CKD stage IV, anemia, hypocalcemia in past, "leaky heart valve",SSS with pacer, gout R foot, cataract R eye, chronic low back pain. aortic stenosis, cataract History of Any Multi-Drug Resistant Organisms: None Reported Past Surgical History: Back Surgery, Cholecystectomy, Coronary Bypass/CABG, Heart Catheterization, Hysterectomy, Joint Replacement, Orthopedic Surgery Additional Past Surgical History / Comment(s): 5 vessel Cabg 2002, 02/2009 Pacemaker, R total shoulder, back discectomy, R knee arthroscopy, EGD/colonoscopy, L cataract removal. Past Anesthesia/Blood Transfusion Reactions: No Reported Reaction Additional Past Anesthesia/Blood Transfusion Reaction / Comment(s): Pt has clausterphobia. Type of Cardiac Device: Permanent Pacemaker Device Placement Date:: gen change 02/11 Past Psychological History: Depression Smoking Status: Never smoker Past Alcohol Use History: None Reported Past Drug Use History: None Reported - Past Family History Father Family Medical History: COPD, Diabetes Mellitus Additional Family Medical History / Comment(s): Father developed diabetes and heart disease later in life. He lived to be 97yrs old. Mother Family Medical History: COPD, Diabetes Mellitus Additional Family Medical History / Comment(s): Mother had heart disease. She lived to be 70yrs old. Medications and Allergies Home Medications Medication Instructions Recorded Confirmed Type Acetaminophen Tab [Tylenol] 500 mg PO Q4H PRN 01/26/17 02/21/19 History Albuterol Nebulized [Ventolin 2.5 mg INHALATION RT-TID 01/26/17 02/21/19 History Nebulized] Budesonide/Formoterol Fumarate 2 puff INHALATION RT-BID PRN 01/26/17 02/21/19 History [Symbicort 160-4.5 Mcg Inhaler] Bumetanide [BUMEX] 3 mg PO DAILY 01/26/17 02/21/19 History Calcitriol [Rocaltrol] 0.25 mcg PO DAILY 01/26/17 02/21/19 History Cinnamon Bark [Cinnamon] 500 mg PO DAILY 01/26/17 02/21/19 History Fish Oil/Dha/Epa [Fish Oil 1,200 1 cap PO DAILY 01/26/17 02/21/19 History mg Fish Oil] Fluticasone Nasal [place] [Flonase 2 spray EA NOSTRIL DAILY 01/26/17 02/21/19 History Nasal [place]] Isosorbide Mononitrate ER [Imdur] 60 mg PO DAILY 01/26/17 02/21/19 History Metolazone [Zaroxolyn] 2.5 mg PO DAILY 01/26/17 02/21/19 History Nitroglycerin Sl Tabs [Nitrostat] 0.4 mg SUBLINGUAL Q5M PRN 01/26/17 02/21/19 History Omeprazole [PriLOSEC] 20 mg PO DAILY 01/26/17 02/21/19 History Simvastatin [Zocor] 20 mg PO HS 01/26/17 02/21/19 History hydrALAZINE HCL [Apresoline] 25 mg PO TID 01/26/17 02/21/19 History rOPINIRole HCL [Requip] 1 mg PO BID 01/26/17 02/21/19 History Potassium Chloride Oral Liquid 40 meq PO DAILY 08/19/17 02/21/19 History Metoprolol Succinate (ER) [Toprol 100 mg PO DAILY 09/16/18 02/21/19 History XL] Allopurinol [Zyloprim] 100 mg PO BID 02/14/19 02/21/19 History Allergies Allergy/AdvReac Type Severity Reaction Status Date / Time levofloxacin [From Levaquin] Allergy Nausea & Verified 02/21/19 19:24 Vomiting codeine AdvReac Nausea & Verified 02/21/19 19:24 Vomiting fentanyl AdvReac Nausea & Verified 02/21/19 19:24 Vomiting hydrocodone AdvReac Nausea & Verified 02/21/19 19:24 Vomiting hydromorphone [From Dilaudid] AdvReac Hallucinati Verified 02/21/19 19:24 ons morphine AdvReac Nausea & Verified 02/21/19 19:24 Vomiting pentazocine [From Talwin] AdvReac Nausea & Verified 02/21/19 19:24 Vomiting propoxyphene [From Darvon] AdvReac Nausea & Verified 02/21/19 19:24 Vomiting tramadol AdvReac Nausea & Verified 02/21/19 19:24 Vomiting Physical Exam Vitals: Vital Signs Temp Pulse Pulse Resp BP Pulse Ox 02/22/19 09:01 86 02/22/19 08:51 84 02/22/19 08:50 84 02/22/19 08:40 88 02/22/19 04:05 84 02/22/19 04:00 97.9 F 60 22 97 02/22/19 03:52 84 02/22/19 03:51 84 02/22/19 03:42 80 02/22/19 00:00 97.9 F 60 20 98 02/21/19 21:12 61 18 02/21/19 21:02 60 18 96 02/21/19 20:00 97.8 F 60 20 162/68 96 Intake and Output 02/21/19 02/22/19 02/22/19 22:59 06:59 14:59 Intake Total 240 Output Total 1000 Balance 240 -1000 Intake: Oral 240 Output: Urine 1000 Other: Voiding Method Indwelling Catheter Indwelling Catheter Weight 82.5 kg 68 kg - Constitutional General appearance: cooperative, mild distress - EENT Eyes: anicteric sclerae, EOMI, PERRLA, photophobia, normal appearance ENT: NA/AT, normal oropharynx - Neck Neck: normal ROM - Respiratory Respiratory: bilateral: CTA, negative: diminished, dullness, rhonchi - Cardiovascular Rhythm: regular Heart sounds: normal: S1, S2 Abnormal Heart Sounds: no systolic murmur, no diastolic murmur, no rub, no S3 Gallop, no S4 Gallop, no click, no other - Gastrointestinal General gastrointestinal: normal bowel sounds, soft - Integumentary Integumentary: decreased turgor, normal - Neurologic Neurologic: CNII-XII intact - Musculoskeletal Musculoskeletal: generalized weakness, strength equal bilaterally - Psychiatric Psychiatric: A&O x's 3, appropriate affect Assessment and Plan Plan: 1. Palliative treatment with hospice, inpatient, on Bumex 2 mg IV, morphine 5 mg through nebulized route, Zofran, Robinul 2 Acute respiratory failure secondary to acute on chronic systolic congestive heart failure and aortic stenosis.echo from January 2018 suggest EF for 35-40% repeat echo currently shows atrial fibrillation paced rhythm, EF 30-35%, severe global hypokinesis, moderate LVH moderate MR and mild to moderate MS, severe tricuspid regurgitation moderate aortic valve sclerosis moderate aortic stenosis , mild pulmonary hypertension. Failed medical management, patient is on hospice, family wanted to continue on IV Lasix, no further labs, no BiPAP, CODE STATUS hospice 3. Symptomatic aortic stenosis. 4. acute COPD exacerbation recurrent cough, suspected aspiration pneumonia with coughing episodes during eating, Continue with supplemental oxygen, continue symptom control with DuoNeb, Robinul for secretions, 5 Chronic kidney disease stage IV with worsening azotemia, no further labs,. , 6. Coronary artery disease status post coronary artery bypass graft in 2002, cardiac meds discontinued metoprolol, aspirin, atorvastatin, and Imdur secondary to hospice 7 Ischemic cardiomyopathy with an ejection fraction of 35-40% with pacemaker, , 8 Restless leg syndrome. No current treatment, morphine for symptom control 9 recent cataract surgery stable 10. Thrombocytopenia. We'll continue to monitor CBC 11 DVT prophylaxis.hold anticoagulation SCDs 12 GI prophylaxis. Pepcid 13chronic hypoxemic Respriatory failure, on O2 3 L at home, maintained during hospice CODE STATUS comfort care hospice
[2019-02-23] MEDS: IPRATROPIUM-ALBUTEROL 3 ML NEB INHALATION SCH ×7 (00:15→23:48)
[2019-02-23] MEDS: MORPHINE CONC SOLN 10mg/0.5mL ORAL SYRG MISCELLANE PRN ×2 (00:31→21:42)
[2019-02-23] MEDS: BUMETANIDE 0.25 MG/ML 10 ML VIAL IV SCH ×2 (09:21→20:23)
--- NOTE | 2019-02-23 16:14 | P.PN ---
Subjective Progress Note Date: 02/23/19 This is an 88-year-old female one of Dr. Cade patient's, now entered into the hospice program, inpatient. she has a past medical history of chronic kidney disease stage IV, COPD, oxygen dependent on 2- 3 Lmostly at night, hypertension, restless leg syndrome, history of coronary artery disease, and prior coronary artery bypass 5 in 2002, pacemaker in 2009,generator change in 01/2017,2 diabetes, hypertension and dyslipidemia. patient comes in today with worsening shortness of breath for the past 1 week. Patient is always short of breath, with worsening shortness of breath, was recently managing a facility for multiple symptoms, has a terminal diagnoses of acute respiratory failure secondary to acute on chronic systolic CHF, symptomatic aortic stenosis, ejection fraction 35-40%, COPD with exacerbation, CK D stage IV, with azotemia, hyperkalemia, CAD with prior CABG in 2002, ischemic cardiomyopathy, requiring a pacemaker, as well as leg syndrome, recent cataract surgery, and recent thrombo- cytopenia. She had failed aggressive treatments including IV diuretics, IV steroids, renal dose dopamine, not a surgical candidate for hemodialysis, family has decided on hospice management as of 02/21/2019 for which the current hospitalization is for. She was admitted from our facility February 16 till February 21 for the critical medical problems as per family wishes, she wanted to be made hospice comfort care measures only 02/23: Patient is still at baseline, comfortable, has nebulized morphine, no further decompensation, patient and the hospice team have discussed home hospice program, as patient stable without escalation of treatment, most likely will be discharged in the morning, 4 the hospice program at home. Objective - Vital Signs Vital signs: Vital Signs Temp 97.8 F 02/23/19 09:21 Pulse 60 02/23/19 12:11 Resp 18 02/23/19 09:21 BP 149/68 02/23/19 09:21 Pulse Ox 98 02/23/19 09:21 Intake & Output 02/22/19 02/23/19 02/23/19 18:59 06:59 18:59 Intake Total 100 280 Output Total 1150 1000 1600 Balance -1050 -1000 -1320 Intake: Oral 100 280 Output: Urine 1150 1000 1600 - Constitutional General appearance: Present: cooperative, mild distress, no acute distress - EENT Eyes: Present: EOMI, PERRLA, dentition normal ENT: Present: NA/AT, normal oropharynx - Neck Neck: Present: normal ROM - Respiratory Respiratory: bilateral: CTA, diminished, rhonchi - Cardiovascular Rhythm: regular Abnormal Heart Sounds: Present: systolic murmur - Gastrointestinal General gastrointestinal: Present: normal bowel sounds - Integumentary Integumentary: Present: normal - Musculoskeletal Musculoskeletal: Present: generalized weakness, strength equal bilaterally - Psychiatric Psychiatric: Present: A&O x's 3, appropriate affect, intact judgment & insight Assessment and Plan Plan: 1. Palliative treatment with hospice, inpatient, on Bumex 2 mg IV, morphine 5 mg through nebulized route, Kristin Hager will be transitioned to home hospice program on 02/24/2019 2 Acute respiratory failure secondary to acute on chronic systolic congestive heart failure and aortic stenosis.echo from January 2018 suggest EF for 35-40% repeat echo currently shows atrial fibrillation paced rhythm, EF 30-35%, severe global hypokinesis, moderate LVH moderate MR and mild to moderate MS, severe tricuspid regurgitation moderate aortic valve sclerosis moderate aortic stenosis , mild pulmonary hypertension. Failed medical management, patient is on hospice, family wanted to continue on IV Lasix, no further labs, no BiPAP, [facility] hospice 3. Symptomatic aortic stenosis. 4. acute COPD exacerbation recurrent cough, suspected aspiration pneumonia with coughing episodes during eating, Continue with supplemental oxygen, continue symptom control with Kristin Lott for secretions, 5 Chronic kidney disease stage IV with worsening azotemia, no further labs,. , 6. Coronary artery disease status post coronary artery bypass graft in 2002, cardiac meds discontinued metoprolol, aspirin, atorvastatin, and Imdur secondary to hospice 7 Ischemic cardiomyopathy with an ejection fraction of 35-40% with pacemaker, , 8 Restless leg syndrome. No current treatment, morphine for symptom control 9 recent cataract surgery stable 10. Thrombocytopenia. We'll continue to monitor CBC 11 DVT prophylaxis.hold anticoagulation SCDs 12 GI prophylaxis. Pepcid 13chronic hypoxemic Respriatory failure, on O2 3 L at home, maintained during hospice [facility] comfort care hospice
[2019-02-24] MEDS: IPRATROPIUM-ALBUTEROL 3 ML NEB INHALATION SCH ×6 (04:26→23:26)
[2019-02-24] MEDS: BUMETANIDE 0.25 MG/ML 10 ML VIAL IV SCH ×2 (08:26→21:59)
[2019-02-24] MEDS: SODIUM CHLORIDE 0.9% NEBULIZ 3 ML INHALATION PRN ×2 (10:25→23:23)
[2019-02-24] MEDS: MORPHINE CONC SOLN 10mg/0.5mL ORAL SYRG MISCELLANE PRN ×2 (10:31→23:23)
--- NOTE | 2019-02-24 12:54 | P.DS ---
Providers Date of admission: 02/21/19 17:12 Attending physician: Clementina Martinez MD Primary care physician: [facility] Course: This is an 88-year-old female one of Dr. Cade patient's, now entered into the hospice program, inpatient. she has a past medical history of chronic kidney disease stage IV, COPD, oxygen dependent on 2- 3 Lmostly at night, hypertension, restless leg syndrome, history of coronary artery disease, and prior coronary artery bypass 5 in 2002, pacemaker in 2009,generator change in 01/2017,2 diabetes, hypertension and dyslipidemia. patient comes in today with worsening shortness of breath for the past 1 week. Patient is always short of breath, with worsening shortness of breath, was recently managing a facility for multiple symptoms, has a terminal diagnoses of acute respiratory failure secondary to acute on chronic systolic CHF, symptomatic aortic stenosis, ejection fraction 35-40%, COPD with exacerbation, CK D stage IV, with azotemia, hyperkalemia, CAD with prior CABG in 2002, ischemic cardiomyopathy, requiring a pacemaker, as well as leg syndrome, recent cataract surgery, and recent thrombo- cytopenia. She had failed aggressive treatments including IV diuretics, IV steroids, renal dose dopamine, not a surgical candidate for hemodialysis, family has decided on hospice management as of 02/21/2019 for which the current hospitalization is for. She was admitted from our facility February 16 till February 21 for the critical medical problems as per family wishes, she wanted to be made hospice comfort care measures only 02/23: Patient is still at baseline, comfortable, has nebulized morphine, no further decompensation, patient and the hospice team have discussed home hospice program, as patient stable without escalation of treatment, most likely will be discharged in the morning, 4 the hospice program at home. 02/24 patient is comfortable on current medication continue morphine and Ativan. We'll discontinue patient's Protonix, cholesterol medication and continue with Bumex and metolazone to help with the shortness of breath. Patient is a possible discharge to assisted living facility with hospice Discharge diagnosis 1. Palliative treatment with hospice 2 Acute respiratory failure secondary to acute on chronic systolic congestive heart failure and aortic stenosis with EF for 35-40% with valvular heart disease 3. Symptomatic aortic stenosis. 4. acute COPD exacerbation 5 Chronic kidney disease stage IV with worsening azotemia , 6. Coronary artery disease status post coronary artery bypass graft in 2002 7 Ischemic cardiomyopathy with an ejection fraction of 35-40% with pacemaker, , 8 Restless leg syndrome. 9 recent cataract surgery 10. Thrombocytopenia. Plan - Discharge Summary New Discharge Prescriptions: Continue hydrALAZINE HCL [Apresoline] 25 mg PO TID Isosorbide Mononitrate ER [Imdur] 60 mg PO DAILY Fluticasone Nasal [place] [Flonase Nasal [place]] 2 spray EA NOSTRIL DAILY Bumetanide [BUMEX] 3 mg PO DAILY Budesonide/Formoterol Fumarate [Symbicort 160-4.5 Mcg Inhaler] 2 puff INHALATION RT-BID PRN PRN Reason: Shortness Of Breath Albuterol Nebulized [Ventolin Nebulized] 2.5 mg INHALATION RT-TID Acetaminophen Tab [Tylenol] 500 mg PO Q4H PRN PRN Reason: Pain rOPINIRole HCL [Requip] 1 mg PO BID Metoprolol Succinate (ER) [Toprol XL] 100 mg PO DAILY Discontinued Metolazone [Zaroxolyn] 2.5 mg PO DAILY Fish Oil/Dha/Epa [Fish Oil 1,200 mg Fish Oil] 1 cap PO DAILY Cinnamon Bark [Cinnamon] 500 mg PO DAILY Calcitriol [Rocaltrol] 0.25 mcg PO DAILY Omeprazole [PriLOSEC] 20 mg PO DAILY Nitroglycerin Sl Tabs [Nitrostat] 0.4 mg SUBLINGUAL Q5M PRN PRN Reason: Chest Pain Simvastatin [Zocor] 20 mg PO HS Potassium Chloride Oral Liquid 40 meq PO DAILY Allopurinol [Zyloprim] 100 mg PO BID Discharge Medication List Acetaminophen Tab [Tylenol] 500 mg PO Q4H PRN 01/26/17 [History] Albuterol Nebulized [Ventolin Nebulized] 2.5 mg INHALATION RT-TID 01/26/17 [History] Budesonide/Formoterol Fumarate [Symbicort 160-4.5 Mcg Inhaler] 2 puff INHALATION RT-BID PRN 01/26/17 [History] Bumetanide [BUMEX] 3 mg PO DAILY 01/26/17 [History] Fluticasone Nasal [place] [Flonase Nasal [place]] 2 spray EA NOSTRIL DAILY 01/26/17 [History] Isosorbide Mononitrate ER [Imdur] 60 mg PO DAILY 01/26/17 [History] hydrALAZINE HCL [Apresoline] 25 mg PO TID 01/26/17 [History] rOPINIRole HCL [Requip] 1 mg PO BID 01/26/17 [History] Metoprolol Succinate (ER) [Toprol XL] 100 mg PO DAILY 09/16/18 [History] Discharge Disposition: [facility]
[2019-02-25] MEDS: IPRATROPIUM-ALBUTEROL 3 ML NEB INHALATION SCH ×4 (02:54→15:36)
[2019-02-25] MEDS: SODIUM CHLORIDE 0.9% NEBULIZ 3 ML INHALATION PRN (05:28)
[2019-02-25] MEDS: MORPHINE CONC SOLN 10mg/0.5mL ORAL SYRG MISCELLANE PRN ×2 (05:32→15:33)
[2019-02-25 08:47] VITALS: BP 161/59; RESP 18; TEMP 98.2
[2019-02-25] MEDS: BUMETANIDE 0.25 MG/ML 10 ML VIAL IV SCH (08:48)
[2019-02-25 12:14] VITALS: PULSE 76
== END 2019-02-25 15:50 | disposition hospice, inpatient (51) | DRG 951 ==
LOC: 3SCARD 17:12
PROVIDERS: ADMIT Internal Medicine; ATTEND Internal Medicine
DX: Z51.5 Encounter for palliative care (principal); J96.01 Acute respiratory failure with hypoxia; I50.23 Acute on chronic systolic (congestive) heart failure; I13.0 Hypertensive heart and chronic kidney disease with heart failure and stage 1 through stage 4 chronic kidney disease, or unspecified chronic kidney disease; N18.4 Chronic kidney disease, stage 4 (severe); J44.1 Chronic obstructive pulmonary disease with (acute) exacerbation; E78.5 Hyperlipidemia, unspecified; E11.22 Type 2 diabetes mellitus with diabetic chronic kidney disease; D69.6 Thrombocytopenia, unspecified; F32.9 Major depressive disorder, single episode, unspecified; G25.81 Restless legs syndrome; E87.5 Hyperkalemia; I25.10 Atherosclerotic heart disease of native coronary artery without angina pectoris; I35.0 Nonrheumatic aortic (valve) stenosis; I25.5 Ischemic cardiomyopathy; Z79.51 Long term (current) use of inhaled steroids; Z79.899 Other long term (current) drug therapy; Z82.5 Family history of asthma and other chronic lower respiratory diseases; Z82.49 Family history of ischemic heart disease and other diseases of the circulatory system; Z95.0 Presence of cardiac pacemaker; Z90.710 Acquired absence of both cervix and uterus; Z99.81 Dependence on supplemental oxygen; Z98.42 Cataract extraction status, left eye; Z95.1 Presence of aortocoronary bypass graft; Z83.3 Family history of diabetes mellitus; Z88.1 Allergy status to other antibiotic agents; Z88.5 Allergy status to narcotic agent
CPT/HCPCS: 94640; 94760